=== PATIENT | male | born 1935 | race Caucasian/White ===

== ENCOUNTER 2018-12-29 08:50 | Observation (INO) ==
--- NOTE | 2018-12-29 09:06 | Emergency Department Note ---
Disposition Clinical Impression: Chest pain due to CAD Disposition: Admitted As Inpatient Time of Disposition: 10:16 Chest Pain HPI - General Chief Complaint: ED Chest Pain Stated Complaint: CP Time Seen by Provider: 12/29/18 08:51 Source: patient Mode of arrival: ambulatory Limitations: no limitations Vital Signs Reviewed: Yes Nursing Notes Reviewed: Yes - History of Present Illness HPI Narrative: 83-year-old male with history of congestive heart failure, RVR, atrial fibrillation presents with chest pain. Patient reported shortness of breath with exertion for a week. He started to feel chest pressure and palpitation yesterday. Patient stated it was intermittent. He is not sure how long it last. He started feel chest pain around 4:30 this morning. Patient is taking Lasix 20 mg daily and [place]. Last time it visited Dr. Martin was in August. No history of CT. Pt complaint: chest pain Onset (ago): day(s) (1) Duration: intermittent Severity scale (1-10): 0 - Related Data Home Medications Medication Instructions Recorded Confirmed Apixaban [Eliquis] 5 mg PO BID 11/30/18 12/29/18 Budesonide/Formoterol 160/4.5 2 puff IH BIDR 11/30/18 12/29/18 [Symbicort 160/4.5] Esomeprazole Magnesium [Nexium 20 mg PO DAILY 11/30/18 12/29/18 24Hr] Furosemide [Lasix] 20 mg PO DAILY 11/30/18 12/29/18 Ipratropium/Albuterol Neb [Duoneb] 3 ml IH Q6HR PRN 11/30/18 12/29/18 Meclizine HCl [Verticalm] 25 mg PO BID PRN 11/30/18 12/29/18 Montelukast [Singulair] 10 mg PO HS 11/30/18 12/29/18 Multivit with Iron,Minerals 1 each PO DAILY 11/30/18 12/29/18 [Spectravite Senior] Diltiazem CD (24hr) [Cardizem CD] 120 mg PO DAILY 12/29/18 12/29/18 Ipratropium/Albuterol Sulfate 1 puff IH Q6H PRN 12/29/18 12/29/18 [Combivent Respimat Inhal [place]] Latanoprost [Xalatan] 1 drop BOTH EYES HS 12/29/18 12/29/18 Metoprolol [Lopressor] 50 mg PO BID 12/29/18 12/29/18 Allergies Allergy/AdvReac Type Severity Reaction Status Date / Time codeine Allergy Hallucinati Verified 11/30/18 16:42 ng Constitutional: Denies: fever, chills Eyes: Denies: eye pain ENT ED: Denies: ear pain Cardiovascular: Reports: chest pain Respiratory: Reports: dyspnea. Denies: cough Gastrointestinal: Denies: abdominal pain Genitourinary: Denies: urgency Musculoskeletal: Denies: back pain Integumentary: Denies: rash Neurological: Denies: headache Psychiatric: Denies: anxiety Endocrine: Denies: fatigue Hematological/Lymphatic: Denies: easy bleeding Allergic/Immunologic: Denies: facial swelling Chest Pain PMH - Past Medical History Medical history: Reports: arthritis, COPD, hypertension, RA, other Surgical history: Reports: cataract, orthopedic, other, other Psychiatric history: Reports: no psych history - Social History Smoking Status: Former smoker Alcohol use: Reports: rarely Drug use: Reports: none Physical Exam - General Limitations: no limitations General appearance: alert - Head Head exam: atraumatic - Eye Eye exam: Present: normal appearance - ENT ENT exam: normal exam - Neck Neck exam: Present: normal inspection - Chest Chest inspection: Present: normal inspection - Respiratory Respiratory exam: Present: normal lung sounds bilaterally. Absent: respiratory distress, wheezes - Cardiovascular Cardiovascular exam: Present: regular rate - Abdominal Exam Abdominal exam: Present: soft, Non-Tender - Extremities Exam Extremities exam: Present: normal inspection, full ROM. Absent: tenderness, pedal edema - Back Exam Back exam: Present: normal inspection, full ROM. Absent: tenderness - Neurological Exam Neurological exam: Present: alert, oriented X3 - Psychiatric Psychiatric exam: Present: normal affect - Skin Skin exam: Present: warm, intact Course Vital Signs Temperature 97.6 F 12/29/18 08:57 Pulse Rate 66 12/29/18 08:57 Respiratory Rate 16 12/29/18 08:57 Blood Pressure 152/80 12/29/18 08:57 O2 Sat by Pulse Oximetry 97 12/29/18 08:57 Temperature 97.6 F 12/29/18 08:57 Pulse Rate 63 12/29/18 10:30 Respiratory Rate 16 12/29/18 08:57 Blood Pressure 140/85 12/29/18 10:30 O2 Sat by Pulse Oximetry 97 12/29/18 10:30 Oxygen Delivery Oxygen Delivery Room Air Chest Pain - MDM Narrative Medical decision making narrative: 83-year-old male with a history of actual fibrillation, congestive heart failure, RVR presents with shortness breath and chest pain. Patient reported shortness of breath with extortion a week ago. He started intermittent chest pressure and palpitation last night. The last time chest pain started 4:30 this morning. Physical exam bilateral lungs are clear, no tachycardia, bilateral ankles no swelling. Chest x-ray unremarkable. Troponin negative. BNP 256. EKG no ST elevation. Pt's heart score 4-5. Dr. Castrejon has seen the patient and agrees to admit the patient to hospital for "chest pain rule out CT" . Spoke with Dr. Martin. He will see patient in floor. Dr. Montes De Oca: I reviewed the case and care with the APC and agree with her findings assessment and plan. I did not personally evaluate the patient but did review the case and care with the APC and agree with initial evaluation and admission. - Lab Data Lab results reviewed: Yes I reviewed the patient's lab results. Result diagrams: 12/29/18 09:11 12/29/18 09:11 Lab Results 12/29/18 12/29/18 12/29/18 Range/Units 09:11 09:11 09:11 WBC 6.1 (4.3-11.1) K/mcL RBC 4.22 (4.19-5.50) M/mcL Hgb 13.5 (12.9-16.9) g/dL Hct 40.9 (37.5-50.1) % MCV 96.9 (83.0-100.0) fL MCH 32.0 (28.0-33.3) pg MCHC 33.0 (31.6-35.5) g/dL RDW 13.9 (11.5-14.5) % Plt Count 156 (140-400) K/mcL MPV 11.7 (9.4-12.4) fL Immature Gran % 0.2 (0-4) % Seg Neutrophils % 61.7 % Lymphocytes % 25.8 % Monocytes % 10.7 % Eosinophils % 1.1 % Basophils % 0.5 % Neutrophils # 3.8 (1.6-8.9) K/mcL Lymphocytes # 1.6 (0.6-4.6) K/mcL Monocytes # 0.7 (0.0-1.3) K/mcL Eosinophils # 0.1 (0.0-0.6) K/mcL Basophils # 0.0 (0.0-0.2) K/mcL PT 13.6 H (9.4-12.1) Seconds INR 1.2 Sodium 141 (136-145) mEq/L Potassium 4.2 (3.5-5.1) mEq/L Chloride 107 (98-107) mEq/L Carbon Dioxide 28 (23-29) mEq/L BUN 19 (8-23) mg/dL Creatinine 0.63 L (0.70-1.30) mg/dL Est GFR ( Amer) > 60 (> 60) Est GFR (Non-Af Amer) > 60 (> 60) BUN/Creatinine Ratio 30 H (6-26) Glucose 82 (70-105) mg/dL Calculated Osmolality 293 (280-300) Calcium 9.6 (8.6-10.3) mg/dL Total Bilirubin 0.7 (0.3-1.0) mg/dL AST 17 (13-39) Units/L ALT 14 (7-52) Units/L Alkaline Phosphatase 82 (34-104) Units/L Troponin I < 0.03 (< 0.04) ng/mL B-Natriuretic Peptide (Less than 100) pg/mL Serum Total Protein 6.6 (6.4-8.9) g/dL Albumin 4.3 (3.5-5.7) g/dL Globulin 2.3 L (2.4-3.5) g/dL Albumin/Globulin Ratio 1.9 (1.1-2.2) 12/29/18 Range/Units 09:11 WBC (4.3-11.1) K/mcL RBC (4.19-5.50) M/mcL Hgb (12.9-16.9) g/dL Hct (37.5-50.1) % MCV (83.0-100.0) fL MCH (28.0-33.3) pg MCHC (31.6-35.5) g/dL RDW (11.5-14.5) % Plt Count (140-400) K/mcL MPV (9.4-12.4) fL Immature Gran % (0-4) % Seg Neutrophils % % Lymphocytes % % Monocytes % % Eosinophils % % Basophils % % Neutrophils # (1.6-8.9) K/mcL Lymphocytes # (0.6-4.6) K/mcL Monocytes # (0.0-1.3) K/mcL Eosinophils # (0.0-0.6) K/mcL Basophils # (0.0-0.2) K/mcL PT (9.4-12.1) Seconds INR Sodium (136-145) mEq/L Potassium (3.5-5.1) mEq/L Chloride (98-107) mEq/L Carbon Dioxide (23-29) mEq/L BUN (8-23) mg/dL Creatinine (0.70-1.30) mg/dL Est GFR ( Amer) (> 60) Est GFR (Non-Af Amer) (> 60) BUN/Creatinine Ratio (6-26) Glucose (70-105) mg/dL Calculated Osmolality (280-300) Calcium (8.6-10.3) mg/dL Total Bilirubin (0.3-1.0) mg/dL AST (13-39) Units/L ALT (7-52) Units/L Alkaline Phosphatase (34-104) Units/L Troponin I (< 0.04) ng/mL B-Natriuretic Peptide 256 H (Less than 100) pg/mL Serum Total Protein (6.4-8.9) g/dL Albumin (3.5-5.7) g/dL Globulin (2.4-3.5) g/dL Albumin/Globulin Ratio (1.1-2.2) - Radiology Data Radiology results reviewed: Yes I reviewed the patient's radiology results. COMPARISON: Chest radiograph 05/25/2018, chest CT 08/30/2015 HISTORY: ORDERING SYSTEM PROVIDED HISTORY: chest pain Chest pain since last night, difficulty breathing for 3 weeks. Initial evaluation. FINDINGS: Hyperinflated, clear lungs. No findings of pneumothorax or pleural effusion. Normal mediastinal and cardiac contours. Mildly prominent hilar contours. Atherosclerotic calcification in the aorta. No obvious acute fracture. Included joints maintain anatomic alignment. XR/XR chest 2V IMPRESSION: 1. No acute findings in the chest. 2. Pulmonary hyperinflation, finding that can be seen with emphysema, asthma, or other etiologies. D/ / Jayant Chowdhury MD / Jayant Chowdhury MD Interpreting Provider: Jayant Chowdhury MD
[2018-12-29 09:24] LABS: Basophils % 0.5 %; Eosinophils # 0.1 K/mcL (0.0-0.6); Eosinophils % 1.1 %; Hematocrit 40.9 % (37.5-50.1); Hemoglobin 13.5 g/dL (12.9-16.9); Immature Granulocytes % 0.2 % (0-4); Lymphocytes # 1.6 K/mcL (0.6-4.6); Lymphocytes % 25.8 %; Mean Corpuscular Volume 96.9 fL (83.0-100.0); Mean Platelet Volume 11.7 fL (9.4-12.4); Monocytes # 0.7 K/mcL (0.0-1.3); Monocytes % 10.7 %; Neutrophils # 3.8 K/mcL (1.6-8.9); Platelet Count 156 K/mcL (140-400); Red Blood Count 4.22 M/mcL (4.19-5.50); Red Cell Distribution Width 13.9 % (11.5-14.5); Segmented Neutrophils % 61.7 %
[2018-12-29 09:36] LABS: INR 1.2; Prothrombin Time 13.6 Seconds (9.4-12.1)
[2018-12-29 09:46] LABS: Alanine Aminotransferase 14 Units/L (7-52); Albumin 4.3 g/dL (3.5-5.7); Albumin/Globulin Ratio 1.9 (1.1-2.2); Alkaline Phosphatase 82 Units/L (34-104); Aspartate Amino Transferase 17 Units/L (13-39); BUN/Creatinine Ratio 30 (6-26); Bilirubin,Total 0.7 mg/dL (0.3-1.0); Blood Urea Nitrogen 19 mg/dL (8-23); Calcium 9.6 mg/dL (8.6-10.3); Carbon Dioxide 28 mEq/L (23-29); Chloride 107 mEq/L (98-107); Globulin 2.3 g/dL (2.4-3.5); Glucose 82 mg/dL (70-105); Osmolality,Calculated 293 (280-300); Potassium 4.2 mEq/L (3.5-5.1); Sodium 141 mEq/L (136-145); Total Protein 6.6 g/dL (6.4-8.9); Troponin I < 0.03 ng/mL (< 0.04); eGFR For Non-African Americans > 60 (> 60)
--- NOTE | 2018-12-29 11:25 | Internal Med History&Physical ---
<Sumit Adler - Last Filed: 12/29/18 12:43> Date of Encounter: 12/29/18 Time of Encounter: 11:25 Internal Medicine - H&P: HPI Chief complaint: Dyspnea on exertion Admitted From: Emergency Dept History of present illness: Mr. Doran is a 83 year old male with a past medical history of hypertension, paroxysmal A. fib on Eliquis, diastolic CHF, COPD, rheumatoid arthritis, untreated KATIA, and obesity who presented to the ED complaining of dyspnea on exertion, pedal edema, intermittent chest pressure, and palpitations since yesterday. Chest pain became worse at 4:30 this morning while at rest and associated with diaphoresis and headache. Nothing made chest pain better/ worse and pain did not radiate. Patient is currently chest pain free and reports compliance with all his home meds. In ED, labs revealed BNP 256, negative initial troponin, and EKG showed no signs of ischemia. Cardiology was consulted. Prior CV testing: FAIZA 01/20/2018: LVEF 60%. Normal LV size and function. RV normal in size and function. Severe LA enlargement. Moderate to severely calcified AV. Polimetry 0.9-1.58 cm2. Moderate by Doppler, MG 24 mmHg. Mild AR, MR. Holter monitor 06/2017: Atral flutter, average HR 70 bpm. Frequent PVCs. No supraventricular ectopy. Lexiscan nuclear stress test 04/2015: Negative for ischemia or prior infarct. TTE 07/28/2015: EF 60%. Normal LV size and function. Mildly dilated RV with normal function. Severe left atrial enlargement. Moderate right atrial enlargement. Mild aortic regurgitation and pulmonic regurgitation. No evidence of pulmonary hypertension identified. Mean aortic valve gradient 11 mmHg. Past Med Surg Social Fam HX - Past Medical History Medical history: arthritis, atrial fibrillation, CHF, COPD, hypertension, RA, other Additional medical history: regurtating aorta valve Psychiatric history: no psych history - Past Surgical History Surgical History: cataract, orthopedic, other, other Additional surgical history: abd sx, back sx, neck sx - Social History Smoking Status: Former smoker Smokeless Tobacco Status: No Alcohol use: rarely Drug use: none - Family History Mother Adopted: No Living Status: Hx Family Cardiac Disorders: Yes (chf) Father Living Status: Cause of : CVA Hx Family Cardiac Disorders: Yes (CHF) Hx Family Neurologic Disorders: Yes (CVA) Internal Medicine - H&P: Meds Apixaban [Eliquis] 5 mg PO BID 11/30/18 [History] Budesonide/Formoterol 160/4.5 [Symbicort 160/4.5] 2 puff IH BIDR 11/30/18 [His tory] Esomeprazole Magnesium [Nexium 24Hr] 20 mg PO DAILY 11/30/18 [History] Furosemide [Lasix] 20 mg PO DAILY 11/30/18 [History] Ipratropium/Albuterol Neb [Duoneb] 3 ml IH Q6HR PRN 11/30/18 [History] Meclizine HCl [Verticalm] 25 mg PO BID PRN 11/30/18 [History] Montelukast [Singulair] 10 mg PO HS 11/30/18 [History] Multivit with Iron,Minerals [Spectravite Senior] 1 each PO DAILY 11/30/18 [History] Diltiazem CD (24hr) [Cardizem CD] 120 mg PO DAILY 12/29/18 [History] Ipratropium/Albuterol Sulfate [Combivent Respimat 20-100 Mcg] 1 puff IH Q6H PRN 12/29/18 [History] Latanoprost [Xalatan] 1 drop BOTH EYES HS 12/29/18 [History] Metoprolol [Lopressor] 50 mg PO BID 12/29/18 [History] Allergy/AdvReac Type Severity Reaction Status Date / Time codeine Allergy Hallucinati Verified 11/30/18 16:42 ng All Systems PM: A 10-system review of systems was performed and is negative for pertinent findings except as documented above in the HPI. - Constitutional Constitutional: fatigue, weight gain, no anorexia, no chills, no fever(s), no lethargy, no weakness - EENT Eyes: no blurry vision, no diplopia Nose, mouth and throat: no sinus pain, no sore throat - Cardiovascular Cardiovascular ROS IM: chest pain, diaphoresis, dyspnea on exertion, irregular heart rhythm, orthopnea, palpitations, no syncope - Respiratory Respiratory: dyspnea, dyspnea on exertion, no cough, no chest congestion, no excessive phlegm production - Gastrointestinal Gastrointestinal: no abdominal pain, no diarrhea, no nausea, no vomiting - Genitourinary Genitourinary ROS male: nocturia, urinary frequency, no dysuria, no urinary urgency - Musculoskeletal Musculoskeletal ROS IM: no numbness, no tingling - Integumentary Integumentary IM: no erythema, no skin ulcer - Neurological Neurological ROS: no confusion, no dizziness, no numbness, no tingling - Psychiatric Psychiatric: no anxiety, no depression - Endocrine Endocrine IM: no polydipsia, no polyphagia, no polyuria - Constitutional Vitals: Temp Pulse Resp BP Pulse Ox 97.6 F 63 16 140/85 97 12/29/18 08:57 12/29/18 10:30 12/29/18 08:57 12/29/18 10:30 12/29/18 10:30 General appearance: Present: cooperative, A&O X 3, pleasant, no acute distress, loss of weight, answers questions appropriately Exam: awake - Head Head exam: Present: atraumatic, normocephalic - Eye Eye exam: Present: EOMI, conjuntiva pink, sclera anicteric - ENT ENT exam: Present: mucous membranes dry, normal oropharynx - Neck Neck exam general surgery: Present: supple, trachea midline. Absent: lymphade nopathy - Respiratory Respiratory exam: Present: CTAB. Absent: accessory muscle use, rales, rhonchi, wheezes - Cardiovascular Cardiovascular exam: Present: irregular rhythm, +S1, +S2. Absent: diastolic murmur, gallop, rubs, systolic murmur - GI/Abdominal GI/Abdominal exam: Present: normal bowel sounds, soft, no peritoneal signs. Absent: distended, guarding, tenderness - Extremities Exam Extremities exam: Present: pedal edema, warm, radial pulses palpable and symmetrical. Absent: calf tenderness, cyanotic, normal capillary refill, normal inspection - Back Exam Back exam: Present: normal inspection. Absent: paraspinal tenderness, tenderness - Neurological Exam Neurological exam: Present: alert, CN II-XII intact, oriented X3, no focal deficits. Absent: facial droop, speech deficit - Psychiatric Psychiatric exam: Present: normal affect, normal mood - Skin Skin exam: Present: dry, intact, normal color, warm Internal Med - H&P Results - Labs CBC & Chem 7: 12/29/18 09:11 12/29/18 09:11 Labs: Short CBC 12/29/18 Range/Units 09:11 WBC 6.1 (4.3-11.1) K/mcL Hgb 13.5 (12.9-16.9) g/dL Hct 40.9 (37.5-50.1) % Plt Count 156 (140-400) K/mcL Neutrophils # 3.8 (1.6-8.9) K/mcL BMP 12/29/18 09:11 Sodium 141 Potassium 4.2 Chloride 107 Carbon Dioxide 28 BUN 19 Creatinine 0.63 L Glucose 82 Calcium 9.6 Cardiac Enzymes 12/29/18 Range/Units 09:11 Troponin I < 0.03 (< 0.04) ng/mL Liver Function 12/29/18 Range/Units 09:11 Total Bilirubin 0.7 (0.3-1.0) mg/dL AST 17 (13-39) Units/L ALT 14 (7-52) Units/L Alkaline Phosphatase 82 (34-104) Units/L Albumin 4.3 (3.5-5.7) g/dL - Pulse Oximetry Interpretation Digit-Finger O2 Sat by Pulse Oximetry: 97 (On ambient air) Actions taken: none - EKG Data -: EKG Interpreted by Myself Rate: tachycardia (A fib HR 73, normal axis, RBBB, no ST elevation or depressions) - EKG Data Prior EKG available for review: yes When compared to previous EKG: there are significant changes (NSR) - Impressions ITS Impressions Chest X-Ray 12/29/18 08:53 IMPRESSION: 1. No acute findings in the chest. 2. Pulmonary hyperinflation, finding that can be seen with emphysema, asthma, or other etiologies. D/ / Jayant Chowdhury MD / Jayant Chowdhury MD Interpreting Provider: Jayant Chowdhury MD - Assessment and Plan (1) (HFpEF) heart failure with preserved ejection fraction Status: Acute Assessment and plan: 83 year old male with diastolic CHF presented complaining of dyspnea on exertion, orthopnea, 2+ pedal edema, elevated BNP 256, CXR revealed pulmonary hyperinflation, finding that can be seen with emphysema, asthma, or other etiologies. FAIZA 01/20/2018: LVEF 60%. Normal LV size and function. RV normal in size and f unction. Severe LA enlargement. Moderate to severely calcified AV. Polimetry 0.9-1.58 cm2. Moderate by Doppler, MG 24 mmHg. Mild AR, MR. Continue beta sabra. Hold oral Lasix, continue IV Lasix Cardiology was consulted. Qualifiers: Heart failure chronicity: acute on chronic Qualified Code(s): I50.33 - Acute on chronic diastolic (congestive) heart failure (2) Chest pain Status: Acute Assessment and plan: 83 year old male with intermittent chest pressure and palpitations while at rest with associated diaphoresis. Patient is currently chest pain free. Negative initial troponin, trend serial troponins EKG showed no signs of ischemia. Holter monitor 06/2017: Atral flutter, average HR 70 bpm. Frequent PVCs. No supraventricular ectopy. Lexiscan nuclear stress test 04/2015: Negative for ischemia or prior infarct. Cardiology was consulted. Qualifiers: Chest pain type: other chest pain Qualified Code(s): R07.89 - Other chest pain; R07.8 - Other chest pain (3) Aortic valve stenosis Status: Chronic Assessment and plan: FAIZA 01/20/2018: LVEF 60%. Normal LV size and function. RV normal in size and function. Severe LA enlargement. Moderate to severely calcified AV. Polimetry 0.9-1.58 cm2. Moderate by Doppler, MG 24 mmHg. Mild AR, MR. TTE 07/28/2015: EF 60%. Normal LV size and function. Mildly dilated RV with normal function. Severe left atrial enlargement. Moderate right atrial enlargement. Mild aortic regurgitation and pulmonic regurgitation. No evidence of pulmonary hypertension identified. Mean aortic valve gradient 11 mmHg. Continue beta sabra. Cardiology following Qualifiers: Cardiac valve disease etiology: etiology unspecified Qualified Code(s): I35.0 - Nonrheumatic aortic (valve) stenosis (4) Atrial fibrillation Status: Acute Assessment and plan: Paroxysmal A. fib currently rate controlled on oral Cardizem and metoprolol. [id number] Score 4 Continue Eliquis for anticoagulation Cardiology following. Recommend outpatient sleep study to evaluate for KATIA. Qualifiers: Atrial fibrillation type: paroxysmal Qualified Code(s): I48.0 - Paroxysmal atrial fibrillation (5) Hypertension Status: Acute Assessment and plan: Blood pressure elevated resume oral metoprolol and Cardizem. Qualifiers: Hypertension type: essential hypertension Qualified Code(s): I10 - Essential (primary) hypertension (6) Rheumatoid arthritis Status: Chronic Assessment and plan: Outpatient monitoring. Qualifiers: Rheumatoid arthritis location: hand Rheumatoid factor presence: unspecified presence Laterality: right Qualified Code(s): M06.9 - Rheumatoid arthritis, unspecified (7) KATIA (obstructive sleep apnea) Status: Chronic Assessment and plan: Recommended outpatient sleep study. (8) Obesity (BMI 30-39.9) Status: Chronic Assessment and plan: Lifestyle modification. (9) DVT prophylaxis Status: Acute Assessment and plan: Eliquis - Time Spent With Patient Total time spent is greater than 50% in coordination of care (as documented) at patient's floor/unit and/or counseling patient: <Jackie Hunt Jm - Last Filed: 12/31/18 06:06> Date of Encounter: 12/30/18 Internal Medicine - H&P: HPI History of present illness: Mr. Doran is a 83 year old male All Systems PM: A 10-system review of systems was performed and is negative for pertinent findings except as documented above in the HPI. - Constitutional Vitals: Temp Pulse Resp BP Pulse Ox 98.3 F 89 16 128/71 94 12/29/18 23:01 12/29/18 23:01 12/29/18 23:01 12/29/18 23:01 12/29/18 23:01 Internal Med - H&P Results - Labs CBC & Chem 7: 12/30/18 02:11 12/30/18 02:11 Labs: Short CBC 12/29/18 Range/Units 09:11 WBC 6.1 (4.3-11.1) K/mcL Hgb 13.5 (12.9-16.9) g/dL Hct 40.9 (37.5-50.1) % Plt Count 156 (140-400) K/mcL Neutrophils # 3.8 (1.6-8.9) K/mcL BMP 12/29/18 09:11 Sodium 141 Potassium 4.2 Chloride 107 Carbon Dioxide 28 BUN 19 Creatinine 0.63 L Glucose 82 Calcium 9.6 Cardiac Enzymes 12/29/18 12/29/18 12/29/18 Range/Units 09:11 15:40 21:20 Troponin I < 0.03 < 0.03 < 0.03 (< 0.04) ng/mL Liver Function 12/29/18 Range/Units 09:11 Total Bilirubin 0.7 (0.3-1.0) mg/dL AST 17 (13-39) Units/L ALT 14 (7-52) Units/L Alkaline Phosphatase 82 (34-104) Units/L Albumin 4.3 (3.5-5.7) g/dL - Impressions ITS Impressions Chest X-Ray 12/29/18 08:53 IMPRESSION: 1. No acute findings in the chest. 2. Pulmonary hyperinflation, finding that can be seen with emphysema, asthma, or other etiologies. D/ / Jayant Chowdhruy MD / Jayant Chowdhury MD Interpreting Provider: Jayant Chowdhury MD - Assessment and Plan (1) Aortic valve stenosis Status: Chronic Qualifiers: Cardiac valve disease etiology: etiology unspecified Qualified Code(s): I35.0 - Nonrheumatic aortic (valve) stenosis (2) Chest pain Status: Acute Qualifiers: Chest pain type: other chest pain Qualified Code(s): R07.89 - Other chest pain; R07.8 - Other chest pain (3) Atrial fibrillation Status: Acute Qualifiers: Atrial fibrillation type: paroxysmal Qualified Code(s): I48.0 - Paroxysmal atrial fibrillation (4) Hypertension Status: Acute Qualifiers: Hypertension type: essential hypertension Qualified Code(s): I10 - Essential (primary) hypertension (5) DVT prophylaxis Status: Acute (6) (HFpEF) heart failure with preserved ejection fraction Status: Acute Qualifiers: Heart failure chronicity: acute on chronic Qualified Code(s): I50.33 - Acute on chronic diastolic (congestive) heart failure (7) Rheumatoid arthritis Status: Chronic Qualifiers: Rheumatoid arthritis location: hand Rheumatoid factor presence: unspecified presence Laterality: right Qualified Code(s): M06.9 - Rheumatoid arthritis, unspecified (8) KATIA (obstructive sleep apnea) Status: Chronic (9) Obesity (BMI 30-39.9) Status: Chronic - Time Spent With Patient Total time spent is greater than 50% in coordination of care (as documented) at patient's floor/unit and/or counseling patient: - Attending Attestation I personally and independently interviewed and examined the patient, and I reviewed the patient's medical records. I am in agreement with the assessment and proposed treatment plan. I discussed my findings and recommendation with the patient and answer his questions. The patient's medical records were edited to accurately reflect this encounter.
--- NOTE | 2018-12-29 11:41 | Electrocardiograph Report ---
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
[2018-12-29] MEDS ORDERED: Ondansetron 4 MG/2 ML VIAL IVP PRN (11:46)
[2018-12-29] MEDS ORDERED: Naloxone 0.4 MG/ML INJ IVP PRN (11:46)
[2018-12-29 12:21] LABS: Magnesium 2.1 mg/dL (1.6-2.6)
[2018-12-29] MEDS ORDERED: Ipratropium/Albuterol Neb 3 ML IH PRN (12:56)
[2018-12-29] MEDS: Furosemide 40 MG/4 ML VIAL IVP SCH ×2 (13:58→22:04)
[2018-12-29] MEDS: Aspirin Enteric Coated 81 MG Tablet PO SCH (13:58)
--- NOTE | 2018-12-29 14:01 | Cardiology Consult Note ---
Date of Encounter: 12/29/18 Time of Encounter: 13:57 Assessment and Plan (1) Chest pain Current Visit: No Status: Acute Intermittent chest pain over recent weeks. Chest pain became worse at 4:30 this morning while at rest and associated with diaphoresis and headache. No alleviating or exacerbating factors. Patient is currently chest pain free. Initial troponin negative. Trend for total of 3. Also with worsening dyspnea x 3 weeks. FAIZA 01/20/2018: LVEF 60%. Normal LV size and function. RV normal in size and function. Severe LA enlargement. Moderate to severely calcified AV. Polimetry 0.9-1.58 cm2. Moderate by Doppler, MG 24 mmHg. Mild AR, MR. Lexiscan nuclear stress test 04/2015: Negative for ischemia or prior infarct. Will order echo to re-evaluate severity. Pending troponin trend and TTE results, will then determine type of ischemic eval. NPO after midnight. Qualifiers: Chest pain type: other chest pain Qualified Code(s): R07.89 - Other chest pain; R07.8 - Other chest pain (2) Aortic valve stenosis Current Visit: No Status: Chronic FAIZA 01/20/2018: Moderate to severely calcified AV. Polimetry 0.9-1.58 cm2. Moderate by Doppler, MG 24 mmHg. Now with progressive dyspnea and chest pain. Concern for worsening . TTE to re-evaluate AV. Qualifiers: Cardiac valve disease etiology: etiology unspecified Qualified Code(s): I35.0 - Nonrheumatic aortic (valve) stenosis (3) Atrial fibrillation Current Visit: Yes Status: Acute Known A-Fib. Holter 10/2018 A-Fib throughout, AVG HR 73. Continue BB and CCB. Anticoagulated on Eliquis 5mg BID. Qualifiers: Atrial fibrillation type: paroxysmal Qualified Code(s): I48.0 - Paroxysmal atrial fibrillation Discussion w patient/family: The assessment and plan as outlined above was discussed with the patient and/or family members who expressed understanding and agreement. All questions were answered. Thank you for involving us in the care of your patient. Please call with any questions. I will discuss all the above with Dr. Martin and make changes as necessary. History of Present Illness Consult date: 12/29/18 Requesting physician: Sumit Adler Consult reason: chest pain, dyspnea Chief complaint: chest pain, dyspnea, BLE edema History of present illness: Mr. Doran is a 83 year old male with PMH of hypertension, A. fib on Eliquis, diastolic CHF, COPD, rheumatoid arthritis, untreated KATIA, and obesity who presented to the ED complaining of dyspnea on exertion, pedal edema, intermittent chest pressure, and palpitations. Shortness of breath has been worsening over the past 3 weeks. Chest pain became worse at 4:30 this morning while at rest and associated with diaphoresis and headache. No alleviating or exacerbating factors, did not radiate. Patient is currently chest pain free and reports compliance with all his home meds. Per , pt has complained of intermittent chest pain over recent weeks. Initial troponin negative. In ED, labs revealed BNP 256, and EKG no acute ischemia. Cardiology consulted for further recs. Prior CV testing: FAIZA 01/20/2018: LVEF 60%. Normal LV size and function. RV normal in size and function. Severe LA enlargement. Moderate to severely calcified AV. Polimetry 0.9-1.58 cm2. Moderate by Doppler, MG 24 mmHg. Mild AR, MR. Holter monitor 10/2018: A-Fib throughout, AVG HR 73. Lexiscan nuclear stress test 04/2015: Negative for ischemia or prior infarct. TTE 07/09/17: LVEF 60-65%. Normal LV chamber size and function. Asymmetric hypertrophy of the basal septum. Indeterminate diastolic function. Normal right ventricular structure and function. Moderately calcified aortic valve leaflets. Mild aortic stenosis. Mean gradient 14 mmHg. Peak veloicty 2.47 m/s. No evidence of pulmonary hypertension. Past Med Surg Social Fam HX - Past Medical History Medical history: arthritis, atrial fibrillation, CHF, COPD, hypertension, RA, other Additional medical history: regurtating aorta valve Psychiatric history: no psych history - Past Surgical History Surgical History: cataract, orthopedic, other, other Additional surgical history: large intestine sx, back sx, neck sx - Social History Smoking Status: Former smoker Smokeless Tobacco Status: No Alcohol use: rarely Drug use: none - Family History Mother Adopted: No Living Status: Hx Family Cardiac Disorders: Yes (chf) Father Living Status: Cause of : CVA Hx Family Cardiac Disorders: Yes (CHF) Hx Family Neurologic Disorders: Yes (CVA) Medications and Allergies Apixaban [Eliquis] 5 mg PO BID 11/30/18 [History] Budesonide/Formoterol 160/4.5 [Symbicort 160/4.5] 2 puff IH BIDR 11/30/18 [History] Diltiazem HCl [Diltiazem 12Hr ER] 120 mg PO DAILY 11/30/18 [History] Esomeprazole Magnesium [Nexium 24Hr] 20 mg PO DAILY 11/30/18 [History] Furosemide [Lasix] 20 mg PO DAILY 11/30/18 [History] Ipratropium/Albuterol Neb [Duoneb] 3 ml IH Q6HR PRN 11/30/18 [History] Meclizine HCl [Verticalm] 25 mg PO BID PRN 11/30/18 [History] Montelukast [Singulair] 10 mg PO HS 11/30/18 [History] Multivit with Iron,Minerals [Spectravite Senior] 1 each PO DAILY 11/30/18 [History] Ipratropium/Albuterol Sulfate [Combivent Respimat Inhal Thiells] 1 puff IH Q6H PRN 12/29/18 [History] Latanoprost [Xalatan] 1 drop BOTH EYES HS 12/29/18 [History] Metoprolol [Lopressor] 50 mg PO BID 12/29/18 [History] Allergy/AdvReac Type Severity Reaction Status Date / Time codeine Allergy Hallucinati Verified 11/30/18 16:42 ng All Systems Review: The remainder of the systems were reviewed and are negative - Cardiovascular Cardiovascular: as per HPI, chest pain at rest, chest pain with exertion, dyspnea at rest, dyspnea on exertion, leg edema - Respiratory Respiratory: dyspnea Physical Examination Vital Signs, Last 4 Hours Temp Pulse Resp BP Pulse Ox 12/29/18 13:53 97.8 F 80 18 142/78 96 12/29/18 10:30 63 140/85 97 Vital Signs Temp Pulse Resp BP Pulse Ox 12/29/18 13:53 97.8 F 80 18 142/78 96 12/29/18 10:30 63 140/85 97 12/29/18 08:57 97.6 F 66 16 152/80 97 Intake and Output 12/28/18 12/29/18 12/29/18 23:59 07:59 15:59 Other: Weight 105.415 kg Patient Weight 12/29/18 23:59 Weight 105.415 kg General: Conversant, No Apparent Distress HEENT: Atraumatic, Normocephaly, Mucus Membranes Moist Neck: Normal carotid pulses Cardiac: Other (3/6 BLANCHE) Lungs: Normal Breath Sounds, No Wheeze, Rales, Rhonchi Neuro: Alert and responsive, No focal deficits noted Abdomen: Soft, Non-Tender Skin: No rashes noted on visualized skin Musculoskeletal: No Chest Wall Tenderness Extremities: No Clubbing, No Cyanosis, No Edema, Normal Pulses Results 12/29/18 09:11 12/29/18 09:11 Lab Results 12/29/18 12/29/18 12/29/18 09:11 09:11 09:11 WBC 6.1 Hgb 13.5 Hct 40.9 Plt Count 156 INR 1.2 Sodium 141 Potassium 4.2 Chloride 107 Carbon Dioxide 28 BUN 19 Creatinine 0.63 L Glucose 82 Calcium 9.6 Magnesium 2.1 Total Bilirubin 0.7 AST 17 ALT 14 Alkaline Phosphatase 82 Troponin I < 0.03 B-Natriuretic Peptide 12/29/18 09:11 WBC Hgb Hct Plt Count INR Sodium Potassium Chloride Carbon Dioxide BUN Creatinine Glucose Calcium Magnesium Total Bilirubin AST ALT Alkaline Phosphatase Troponin I B-Natriuretic Peptide 256 H Short CBC 12/29/18 Range/Units 09:11 WBC 6.1 (4.3-11.1) K/mcL Hgb 13.5 (12.9-16.9) g/dL Hct 40.9 (37.5-50.1) % Plt Count 156 (140-400) K/mcL Neutrophils # 3.8 (1.6-8.9) K/mcL BMP 12/29/18 Range/Units 09:11 Sodium 141 (136-145) mEq/L Potassium 4.2 (3.5-5.1) mEq/L Chloride 107 (98-107) mEq/L Carbon Dioxide 28 (23-29) mEq/L BUN 19 (8-23) mg/dL Creatinine 0.63 L (0.70-1.30) mg/dL Glucose 82 (70-105) mg/dL Calcium 9.6 (8.6-10.3) mg/dL Cardiac Enzymes 12/29/18 Range/Units 09:11 Troponin I < 0.03 (< 0.04) ng/mL Liver Function 12/29/18 Range/Units 09:11 Total Bilirubin 0.7 (0.3-1.0) mg/dL AST 17 (13-39) Units/L ALT 14 (7-52) Units/L Alkaline Phosphatase 82 (34-104) Units/L Albumin 4.3 (3.5-5.7) g/dL Impressions Chest X-Ray 12/29/18 08:53 IMPRESSION: 1. No acute findings in the chest. 2. Pulmonary hyperinflation, finding that can be seen with emphysema, asthma, or other etiologies. D/ / Jayant Chowdhury MD / Jayant Chowdhury MD Interpreting Provider: Jayant Chowdhury MD Active Medications Albuterol/Ipratropium (Duoneb) 3 ml IH Q6HR PRN PRN Reason: Shortness Of Breath Stop: 06/30/19 12:57 Aspirin (Aspirin Ec) 81 mg PO DAILY [facility] Stop: 06/30/19 12:01 Last Admin: 12/29/18 13:58 Dose: 81 mg Documented by: Budesonide/Formoterol Fumarate (Symbicort) 2 puff IH BIDR [facility]; Protocol Stop: 06/30/19 22:01 Docusate Sodium (Colace) 100 mg PO BID PRN PRN Reason: Constipation Stop: 06/30/19 21:01 Furosemide (Lasix) 40 mg IVP BIDDIURETIC [facility] Stop: 06/30/19 12:01 Last Admin: 12/29/18 13:58 Dose: 40 mg Documented by: Metoprolol Tartrate (Lopressor) 50 mg PO BID [facility] Stop: 06/30/19 21:01 Montelukast Sodium (Singulair) 10 mg PO DAILY [facility] Stop: 07/01/19 09:01 Naloxone HCl (Narcan) 0.4 mg IVP Q2MPRN PRN PRN Reason: SEE COMMENTS Stop: 06/30/19 11:47 Non-Formulary Medication (Apixaban [Eliquis]) 5 mg PO BID [facility] Stop: 06/30/19 21:01 Non-Formulary Medication (Diltiazem Hcl [Diltiazem 12hr Er]) 120 mg PO DAILY [facility] Stop: 07/01/19 09:01 Non-Formulary Medication (Esomeprazole Magnesium [Nexium 24hr]) 20 mg PO DAILY [facility] Stop: 07/01/19 09:01 Ondansetron HCl (Zofran) 4 mg IVP Q6HR PRN PRN Reason: Nausea And Vomiting Stop: 06/30/19 11:47 - Imaging and Cardiology Stress Test: report reviewed Echo: report reviewed - EKG Interpretation EKG results cardiology: personally reviewed (A-Fib rate 73) Consult Discharge Plan - Plan Referrals: Bj Ahuja MD [Primary Care Provider] -
[2018-12-29] MEDS ORDERED: Perflutren Lipid Microsphere 1.3 ML in 0.9 % Sodium Chloride 8.7 ML IVP ONE (19:59)
[2018-12-29] MEDS: Budesonide/Formoterol 160/4.5 1 PUFF INH IH SCH (20:11)
[2018-12-29] MEDS: Apixaban 5 MG TABLET PO SCH (22:05)
[2018-12-30 03:00] LABS: Hematocrit 41.8 % (37.5-50.1); Hemoglobin 14.1 g/dL (12.9-16.9); Mean Corpuscular HGB Conc 33.7 g/dL (31.6-35.5); Mean Corpuscular Hemoglobin 32.2 pg (28.0-33.3); Mean Corpuscular Volume 95.4 fL (83.0-100.0); Mean Platelet Volume 11.6 fL (9.4-12.4); Platelet Count 155 K/mcL (140-400); Red Blood Count 4.38 M/mcL (4.19-5.50); Red Cell Distribution Width 13.7 % (11.5-14.5)
[2018-12-30 03:16] LABS: BUN/Creatinine Ratio 26 (6-26); Blood Urea Nitrogen 18 mg/dL (8-23); Calcium 9.6 mg/dL (8.6-10.3); Carbon Dioxide 26 mEq/L (23-29); Chloride 103 mEq/L (98-107); Glucose 99 mg/dL (70-105); Osmolality,Calculated 294 (280-300); Potassium 3.8 mEq/L (3.5-5.1); Sodium 141 mEq/L (136-145); eGFR For Non-African Americans > 60 (> 60)
[2018-12-30] MEDS: Budesonide/Formoterol 160/4.5 1 PUFF INH IH SCH (07:24)
[2018-12-30] MEDS ORDERED: Diltiazem CD (24hr) 120 MG CAPSULE PO SCH (09:00)
[2018-12-30] MEDS ORDERED: Regadenoson 0.4 MG/5 ML SYRINGE IVP ONE (09:29)
--- NOTE | 2018-12-30 12:11 | Cardiology Progress Note ---
Date of Encounter: 12/30/18 Time of Encounter: 12:08 Assessment and Plan (1) Chest pain Current Visit: No Status: Acute Intermittent chest pain over recent weeks associated with diaphoresis, dyspnea and headache. No alleviating or exacerbating factors. Troponin negative x 3. No ischemic ECG changes. TTE LVEF 60%. Mild concentric and moderate basal LVH. Normal RV structure and function. Bi-atrial enlargement. Mild MR. Mild-moderate AR. Aortic valve leaflet morphology and excursion are not well visualized. Moderate by Doppler. Grossly, leaflet excursion appears severely reduced. Mild CT. No phtn. There is a trivial pericardial effusion present. There is no echocardiographic evidence of tamponade. Will proceed with nuclear stress test today. Qualifiers: Chest pain type: other chest pain Qualified Code(s): R07.89 - Other chest pain; R07.8 - Other chest pain (2) Aortic valve stenosis Current Visit: No Status: Chronic FAIZA 01/20/2018: Moderate to severely calcified AV. Polimetry 0.9-1.58 cm2. Moderate by Doppler, MG 24 mmHg. Now with progressive dyspnea and chest pain. TTE Mild-moderate aortic regurgitation. Aortic valve leaflet morphology and excursion are not well visualized. Moderate aortic stenosis by Doppler. Grossly, leaflet excursion appears severely reduced. Continue to monitor. Qualifiers: Cardiac valve disease etiology: etiology unspecified Qualified Code(s): I35.0 - Nonrheumatic aortic (valve) stenosis (3) Atrial fibrillation Current Visit: Yes Status: Acute Known A-Fib. Holter 10/2018 A-Fib throughout, AVG HR 73. Continue BB and CCB. Anticoagulated on Eliquis 5mg BID. Qualifiers: Atrial fibrillation type: paroxysmal Qualified Code(s): I48.0 - Paroxysmal atrial fibrillation Discussion w patient/family: The assessment and plan as outlined above was discussed with the patient and/or family members who expressed understanding and agreement. All questions were answered. Thank you for involving us in the care of your patient. Please call with any questions. I will discuss all the above with Dr. Martin and make changes as necessary. Subjective Principal diagnosis: Chest pain Interval history: Reports episode of chest pain this AM. Chest pain free currently. Objective Vital Signs, Last 4 Hours Temp Pulse Resp BP Pulse Ox 12/30/18 10:59 98.4 F 79 16 133/85 96 Vital Signs Temp Pulse Resp BP Pulse Ox 12/30/18 10:59 98.4 F 79 16 133/85 96 12/30/18 07:58 92 12/30/18 07:28 98.7 F 81 16 137/82 92 12/30/18 07:25 18 94 12/30/18 04:02 98.1 F 81 16 112/69 93 12/29/18 23:01 98.3 F 89 16 128/71 94 12/29/18 20:11 17 96 12/29/18 19:08 98.1 F 63 16 110/63 94 12/29/18 15:19 98.4 F 61 18 102/59 96 12/29/18 13:53 97.8 F 80 18 142/78 96 Intake and Output 12/29/18 12/30/18 12/30/18 23:59 07:59 15:59 Other: Weight 104.4 kg Patient Weight 12/30/18 23:59 Weight 104.4 kg General: Conversant, No Apparent Distress HEENT: Atraumatic, Normocephaly, Mucus Membranes Moist Neck: No JVD, Normal carotid pulses Cardiac: Other (irregularly irregular, BLANCHE ) Lungs: Normal Breath Sounds, No Wheeze, Rales, Rhonchi Neuro: Alert and responsive, No focal deficits noted Abdomen: Soft, Non-Tender Skin: No rashes noted on visualized skin Musculoskeletal: No Chest Wall Tenderness Extremities: No Clubbing, No Cyanosis, No Edema, Normal Pulses Results 12/30/18 02:11 12/30/18 02:11 Lab Results 12/29/18 12/29/18 12/29/18 09:11 15:40 21:20 WBC Hgb Hct Plt Count Sodium Potassium Chloride Carbon Dioxide BUN Creatinine Glucose Calcium Magnesium 2.1 Troponin I < 0.03 < 0.03 TSH 12/30/18 12/30/18 12/30/18 02:11 02:11 11:19 WBC 7.2 Hgb 14.1 Hct 41.8 Plt Count 155 Sodium 141 Potassium 3.8 Chloride 103 Carbon Dioxide 26 BUN 18 Creatinine 0.69 L Glucose 99 Calcium 9.6 Magnesium Troponin I TSH 1.876 Short CBC 12/30/18 Range/Units 02:11 WBC 7.2 (4.3-11.1) K/mcL Hgb 14.1 (12.9-16.9) g/dL Hct 41.8 (37.5-50.1) % Plt Count 155 (140-400) K/mcL BMP 12/30/18 Range/Units 02:11 Sodium 141 (136-145) mEq/L Potassium 3.8 (3.5-5.1) mEq/L Chloride 103 (98-107) mEq/L Carbon Dioxide 26 (23-29) mEq/L BUN 18 (8-23) mg/dL Creatinine 0.69 L (0.70-1.30) mg/dL Glucose 99 (70-105) mg/dL Calcium 9.6 (8.6-10.3) mg/dL Cardiac Enzymes 12/29/18 12/29/18 Range/Units 21:20 15:40 Troponin I < 0.03 < 0.03 (< 0.04) ng/mL Impressions Echocardiogram 12/29/18 14:24 Impressions: LVEF 60%. Mild concentric and moderate basal left ventricular hypertrophy. Indeterminate diastolic function. Normal right ventricular structure and function. Bi-atrial enlargement. Mild mitral regurgitation. Mild-moderate aortic regurgitation. Aortic valve leaflet morphology and excursion are not well visualized. Moderate aortic stenosis by Doppler. Grossly, leaflet excursion appears severely reduced. Mild pulmonic regurgitation. No pulmonary hypertension. There is a trivial pericardial effusion present. There is no echocardiographic evidence of tamponade. Left Ventricular Wall Motion: Rest Echo Findings All wall segments showed normal motion. Findings: Study Quality * Technically challenging due to clinical status. ECG Findings * Atrial fibrillation. Left Ventricle * LVEF 60%. * Mild concentric and moderate basal left ventricular hypertrophy. * Indeterminate diastolic function. * No LVOT obstruction. Right Ventricle * Normal right ventricular structure and function. Left Atrium * Severely dilated left atrium. Right Atrium * Moderately dilated right atrium. Mitral Valve * Mitral valve not well visualized. * Mild mitral annular calcification * Mild mitral regurgitation. * No mitral stenosis. Aortic Valve * Mild-moderate aortic regurgitation. * Aortic valve leaflet morphology and excursion not well visualized. * Moderately calcified aortic valve leaflets. * Moderate aortic stenosis by Doppler. PV 2.6m/s, MG 21 mmHg, DI 0.32, SAMIRA 1.0cm2 Tricuspid Valve * Tricuspid valve not well visualized. * Trace tricuspid regurgitation. Pulmonic Valve * Pulmonic valve is not well visualized. * No pulmonic stenosis. * Mild pulmonic regurgitation. Pulmonary Artery * Normal visualized portions of the main pulmonary artery. Aorta * Normally sized aortic root. Pericardium * There is a trivial pericardial effusion present. * There is no echocardiographic evidence of tamponade. Interatrial Septum * Interatrial septum not well evaluated. IVC * The IVC is not well evaluated. Active Medications Albuterol/Ipratropium (Duoneb) 3 ml IH [id number] PRN PRN Reason: Shortness Of Breath Stop: 06/30/19 12:57 Apixaban (Eliquis) 5 mg PO BID [facility] Stop: 06/30/19 21:01 Last Admin: 12/29/18 22:05 Dose: 5 mg Documented by: Aspirin (Aspirin Ec) 81 mg PO DAILY [facility] Stop: 06/30/19 12:01 Last Admin: 12/29/18 13:58 Dose: 81 mg Documented by: Budesonide/Formoterol Fumarate (Symbicort) 2 puff IH BIDR [facility]; Protocol Stop: 06/30/19 22:01 Last Admin: 12/30/18 07:24 Dose: 2 puff Documented by: Diltiazem HCl (Cardizem Cd) 120 mg PO DAILY [facility] Stop: 07/01/19 09:01 Docusate Sodium (Colace) 100 mg PO BID PRN PRN Reason: Constipation Stop: 06/30/19 21:01 Furosemide (Lasix) 40 mg IVP BIDDIURETIC [facility] Stop: 06/30/19 12:01 Last Admin: 12/29/18 22:04 Dose: Not Given Documented by: Metoprolol Tartrate (Lopressor) 50 mg PO BID [facility] Stop: 06/30/19 21:01 Last Admin: 12/29/18 22:05 Dose: 50 mg Documented by: Montelukast Sodium (Singulair) 10 mg PO DAILY [facility] Stop: 07/01/19 09:01 Naloxone HCl (Narcan) 0.4 mg IVP Q2MPRN PRN PRN Reason: SEE COMMENTS Stop: 06/30/19 11:47 Omeprazole (Prilosec) 20 mg PO DAILY [facility] Stop: 07/01/19 09:01 Ondansetron HCl (Zofran) 4 mg IVP Q6HR PRN PRN Reason: Nausea And Vomiting Stop: 06/30/19 11:47 - Imaging and Cardiology Echo: report reviewed Consult Discharge Plan - Plan Referrals: Bj Ahuja MD [Primary Care Provider] - (Appointment has been reuqested.)
[2018-12-30] MEDS: Apixaban 5 MG TABLET PO SCH (12:57)
[2018-12-30] MEDS: Aspirin Enteric Coated 81 MG Tablet PO SCH (12:57)
[2018-12-30] MEDS: Furosemide 40 MG/4 ML VIAL IVP SCH (12:57)
--- NOTE | 2018-12-30 13:38 | Event Note ---
Date of Encounter: 12/30/18 Time of Encounter: 13:37 - Cardiology Event Note Nuclear stress test perfusion imaging negative for ischemia. Final report pending. Cardiology signing off. Reconsult PRN. Will coordinate outpt follow-up in 3-4 weeks.
[2018-12-30 15:10] VITALS: BP 122/71
--- NOTE | 2018-12-30 15:14 | Discharge Summary ---
Orders not resulted at time of discharge: Pending orders 12/30/18 09:08 NM melina perf SPECT multi [NM] Routine Date of Encounter: 12/30/18 Time of Encounter: 15:12 - Discharge Diagnosis (1) Aortic valve stenosis Priority: Secondary Status: Chronic Qualifiers: Cardiac valve disease etiology: etiology unspecified Qualified Code(s): I35.0 - Nonrheumatic aortic (valve) stenosis (2) Chest pain Priority: Primary Status: Acute Qualifiers: Chest pain type: other chest pain Qualified Code(s): R07.89 - Other chest pain; R07.8 - Other chest pain (3) Atrial fibrillation Priority: Secondary Status: Acute Qualifiers: Atrial fibrillation type: paroxysmal Qualified Code(s): I48.0 - Paroxysmal atrial fibrillation (4) Hypertension Priority: Secondary Status: Acute Qualifiers: Hypertension type: essential hypertension Qualified Code(s): I10 - Essential (primary) hypertension (5) (HFpEF) heart failure with preserved ejection fraction Priority: Secondary Status: Acute Qualifiers: Heart failure chronicity: acute on chronic Qualified Code(s): I50.33 - Acute on chronic diastolic (congestive) heart failure (6) Rheumatoid arthritis Priority: Secondary Status: Chronic Qualifiers: Rheumatoid arthritis location: hand Rheumatoid factor presence: unspecified presence Laterality: right Qualified Code(s): M06.9 - Rheumatoid arthritis, unspecified (7) KATIA (obstructive sleep apnea) Priority: Secondary Status: Chronic (8) Obesity (BMI 30-39.9) Priority: Secondary Status: Chronic Hospital course: Mr. Doran is a 83 year old male with history of hypertension and A. fib on [facility] was diastolic heart failure COPD rheumatoid arthritis untreated KATIA obesity presented to [facility] ED with complaints of dyspnea on exertion pedal edema and intermittent chest pressure or palpitations. Shortness of breath has been worsening for the past 3 weeks. He presented with chest pain with associated symptoms diaphoresis and headache no alleviating or exacerbating factors. Patient was evaluated by cardiology who recommended TTE to evaluate LV function, with no significant changes EF of 60% recommend stress test he underwent a cardiac stress test was negative for any ischemia or infarct. Cardiology recommending follow-up as outpatient. Patient was given IV Lasix overnight denies any shortness of breath or chest pain no lower extremity swelling noted. Patient will follow-up with primary care provider as well as cardiology as outpatient. Patient verbalized understanding and he is ready for discharge. - Time Spent with Patient Total time spent providing and/or coordinating discharge services: - Discharge Medications Prescriptions: Continued Latanoprost [Xalatan] 1 drop BOTH EYES HS Metoprolol [Lopressor] 50 mg PO BID Ipratropium/Albuterol Sulfate [Combivent Respimat 20-100 Mcg] 1 puff IH Q6H PRN PRN Reason: Shortness Of Breath Diltiazem CD (24hr) [Cardizem CD] 120 mg PO DAILY Ipratropium/Albuterol Neb [Duoneb] 3 ml IH Q6HR PRN PRN Reason: Shortness Of Breath Furosemide [Lasix] 20 mg PO DAILY Esomeprazole Magnesium [Nexium 24Hr] 20 mg PO DAILY Apixaban [Eliquis] 5 mg PO BID Meclizine HCl [Verticalm] 25 mg PO BID PRN PRN Reason: Vertigo Multivit with Iron,Minerals [Spectravite Senior] 1 each PO DAILY Budesonide/Formoterol 160/4.5 [Symbicort 160/4.5] 2 puff IH BIDR Montelukast [Singulair] 10 mg PO HS Home Medications: Apixaban [Eliquis] 5 mg PO BID 11/30/18 [History] Budesonide/Formoterol 160/4.5 [Symbicort 160/4.5] 2 puff IH BIDR 11/30/18 [History] Esomeprazole Magnesium [Nexium 24Hr] 20 mg PO DAILY 11/30/18 [History] Furosemide [Lasix] 20 mg PO DAILY 11/30/18 [History] Ipratropium/Albuterol Neb [Duoneb] 3 ml IH Q6HR PRN 11/30/18 [History] Meclizine HCl [Verticalm] 25 mg PO BID PRN 11/30/18 [History] Montelukast [Singulair] 10 mg PO HS 11/30/18 [History] Multivit with Iron,Minerals [Spectravite Senior] 1 each PO DAILY 11/30/18 [History] Diltiazem CD (24hr) [Cardizem CD] 120 mg PO DAILY 12/29/18 [History] Ipratropium/Albuterol Sulfate [Combivent Respimat 20-100 Mcg] 1 puff IH Q6H PRN 12/29/18 [History] Latanoprost [Xalatan] 1 drop BOTH EYES HS 12/29/18 [History] Metoprolol [Lopressor] 50 mg PO BID 12/29/18 [History] Allergies/Adverse Reactions: Allergy/AdvReac Type Severity Reaction Status Date / Time codeine Allergy Hallucinati Verified 11/30/18 16:42 ng Date of admission: 12/29/18 10:56 Primary care physician: Bj Ahuja MD Consults: 12/29/18 10:14 Consult to Cardiology [CONS] Stat Comment: Consulting Provider: Cardiology Flor Reason for Consult: chest pain, shortness of breath Call Completed: No 12/29/18 11:46 Consult to Cardiac Rehabilitation-Phase1 [CONS] Routine Comment: Reason for Consult: heart failure Call Completed: Yes Consult to Nurse Navigator [CONS] Routine Comment: CHF Discharging clinician: Marisela Bundy Anticipated date of discharge: 12/30/18 - Constitutional Vitals: Temp Pulse Resp BP Pulse Ox 97.8 F 86 16 122/71 94 12/30/18 15:08 12/30/18 15:08 12/30/18 15:08 12/30/18 15:08 12/30/18 15:08 General appearance: Present: cooperative, A&O X 3, pleasant, no acute distress, loss of weight, answers questions appropriately Exam: Skin: Free of rash and discoloration. Eyes: Sclera is white. There is no discharge from eyes. ENMT: Oral/pharyngeal mucosa is normal in appearance. There is no discharge from nose or ears. Respiratory: Normal breath sounds with no crackles and wheezes bilaterally. CV: Heart is regular with no gallop systolic murmur GI: Abdomen is flat and soft with no palpable mass or visceromegaly. : There is no tenderness in patient's flanks bilaterally. Neuro exam: He has good strength in upper and lower extremities. He has normal eye movements. Psychiatric: He has normal affect. His thought process is appropriate to the situation. - Patient Status Disposition: Home, Self-Care Condition: Good Functional capacity at discharge: independent ambulation Overall status at discharge: patient is back to baseline - Discharge Instructions Instructions: Chest Pain (DC) Follow Up With: Bj Ahuja MD [Primary Care Provider] - (Appointment has been reuqested.) Evon Harvey, FISHER SCALLOP [Advanced Practice Nurse] - (cardio will call pt with apt date and time ) - Diet and Activity Activity: increase activity as tolerated Diet: advance to your usual diet
== END 2018-12-30 15:36 | disposition home or self-care (01) ==
LOC: EMEROOARM 08:50 → 3BNU 08:50
PROVIDERS: ADMIT Internal Medicine Nephrology; ATTEND Internal Medicine Nephrology

== ENCOUNTER 2019-01-08 19:50 | Observation (INO) ==
[2019-01-08] MEDS ORDERED: Aspirin 81 MG TAB.CHEW PO ONE (19:58)
[2019-01-08 20:17] LABS: Basophils % 0.4 %; Eosinophils # 0.1 K/mcL (0.0-0.6); Eosinophils % 1.2 %; Hematocrit 43.2 % (37.5-50.1); Hemoglobin 14.2 g/dL (12.9-16.9); Immature Granulocytes % 0.3 % (0-4); Lymphocytes # 1.7 K/mcL (0.6-4.6); Lymphocytes % 24.3 %; Mean Corpuscular HGB Conc 32.9 g/dL (31.6-35.5); Mean Corpuscular Hemoglobin 32.1 pg (28.0-33.3); Mean Corpuscular Volume 97.5 fL (83.0-100.0); Mean Platelet Volume 11.1 fL (9.4-12.4); Monocytes # 0.8 K/mcL (0.0-1.3); Monocytes % 11.2 %; Neutrophils # 4.3 K/mcL (1.6-8.9); Platelet Count 181 K/mcL (140-400); Red Blood Count 4.43 M/mcL (4.19-5.50); Red Cell Distribution Width 13.2 % (11.5-14.5); Segmented Neutrophils % 62.6 %
[2019-01-08] MEDS: Nitroglycerin 0.4 MG TAB.SUBL SL PRN (20:17)
--- NOTE | 2019-01-08 20:34 | Emergency Department Note ---
Disposition Clinical Impression: Chest pain Qualifiers: Chest pain type: unspecified Qualified Code(s): R07.9 - Chest pain, unspecified Disposition: Admitted As Inpatient Condition: Good Time of Disposition: 21:04 General Adult HPI - General Chief complaint: ED Chest Pain Stated complaint: Chest pain Time Seen by Provider: 01/08/19 19:52 Source: patient, family Mode of arrival: ambulatory Limitations: no limitations Nursing Notes Reviewed: Yes Vital Signs Reviewed: Yes - History of Present Illness HPI Narrative: 83-year-old male with significant past medical history of COPD and atrial fibrillation currently on eliquis presenting to the ED with chief complaint of chest pain. Patient states he has had intermittent substernal chest pain for a few weeks. Was admitted here and had a stress test completed but no catheterization was completed at that time. Patient states yesterday he was moving things around and started having chest pain that has been constant since. He also started having some shortness of breath associated with this. Due to this his brought him in for further evaluation. Patient denies any fevers or recent illnesses. Denies any nausea, vomiting, diaphoresis or abdominal pain. Pain Scale: 0 - Related Data Home Medications Medication Instructions Recorded Confirmed Apixaban [Eliquis] 5 mg PO BID 11/30/18 01/08/19 Budesonide/Formoterol 160/4.5 2 puff IH BIDR 11/30/18 01/08/19 [Symbicort 160/4.5] Esomeprazole Magnesium [Nexium 20 mg PO DAILY 11/30/18 01/08/19 24Hr] Furosemide [Lasix] 20 mg PO DAILY 11/30/18 01/08/19 Ipratropium/Albuterol Neb [Duoneb] 3 ml IH Q6HR PRN 11/30/18 01/08/19 Montelukast [Singulair] 10 mg PO HS 11/30/18 01/08/19 Multivit with Iron,Minerals 1 each PO DAILY 11/30/18 01/08/19 [Spectravite Senior] Ipratropium/Albuterol Sulfate 1 puff IH Q6H PRN 12/29/18 12/29/18 [Combivent Respimat 20-100 Mcg] Latanoprost [Xalatan] 1 drop BOTH EYES HS 12/29/18 01/08/19 Metoprolol [Lopressor] 50 mg PO BID 12/29/18 01/08/19 Allergies Allergy/AdvReac Type Severity Reaction Status Date / Time codeine Allergy Hallucinati Verified 11/30/18 16:42 ng All systems ED: reviewed and negative except as stated. Constitutional: Denies: fever Eyes: Reports: as per HPI ENT ED: Reports: as per HPI Cardiovascular: Reports: chest pain Respiratory: Reports: dyspnea Gastrointestinal: Denies: abdominal pain Genitourinary: Reports: as per HPI Musculoskeletal: Reports: as per HPI Integumentary: Reports: as per HPI Neurological: Reports: as per HPI Psychiatric: Reports: as per HPI Endocrine: Reports: as per HPI Hematological/Lymphatic: Reports: as per HPI Allergic/Immunologic: Reports: as per HPI Past Medical History - Past Medical History Attestation: Yes The following information was validated with the patient. Medical history: Reports: arthritis, atrial fibrillation, CHF, COPD, h ypertension, RA, other Surgical history: Reports: cataract, orthopedic, other, other Psychiatric history: Reports: no psych history - Social History Smoking Status: Former smoker Smokeless Tobacco Status: No Alcohol use: Reports: rarely Drug use: Reports: none Physical Exam - General Limitations: no limitations General appearance: alert, in no apparent distress - Head Head exam: atraumatic, normocephalic, normal inspection - Eye Eye exam: Absent: scleral icterus - ENT ENT exam: mucous membranes moist - Neck Neck exam: Present: full ROM - Chest Chest inspection: Present: symmetric chest wall rise - Respiratory Respiratory exam: Present: normal lung sounds bilaterally. Absent: respiratory distress, wheezes - Cardiovascular Cardiovascular exam: Present: regular rate, irregular rhythm, normal heart sounds - Abdominal Exam Abdominal exam: Present: soft, Non-Tender. Absent: distention, guarding, rebound - Extremities Exam Extremities exam: Present: full ROM - Neurological Exam Neurological exam: Present: alert, oriented X3 - Psychiatric Psychiatric exam: Present: normal affect - Skin Skin exam: Present: warm Course Course Narrative: 83-year-old male presenting to the emergency department with chief complaint of chest pain. In the room patient is alert and oriented 3 and hemodynamically stable. Patient will be given aspirin and nitroglycerin at this time. Disposition most likely admission due to patient's heart score being 5. Patient agrees with this plan. - Reevaluation(s) Reevaluation #1: Patient's laboratory analysis within normal limits. Chest x-ray shows no acute abnormality. At this time will plan to admit the patient for chest pain rule out. Patient remains alert and oriented 3 and hemodynamically stable. Patient agrees with this plan. Vital Signs Temperature 98.3 F 01/08/19 19:55 Pulse Rate 66 01/08/19 19:55 Respiratory Rate 18 01/08/19 19:55 Blood Pressure 155/103 01/08/19 19:55 O2 Sat by Pulse Oximetry 98 01/08/19 19:55 Temperature 98.3 F 01/08/19 19:55 Pulse Rate 66 01/08/19 19:55 Respiratory Rate 18 01/08/19 19:55 Blood Pressure 155/103 01/08/19 19:55 O2 Sat by Pulse Oximetry 98 01/08/19 19:55 Oxygen Delivery Oxygen Delivery Room Air Medical Decision Making - Lab Data Result diagrams: 01/08/19 20:04 01/08/19 20:04 Lab Results 01/08/19 01/08/19 Range/Units 20:04 20:04 WBC 6.9 (4.3-11.1) K/mcL RBC 4.43 (4.19-5.50) M/mcL Hgb 14.2 (12.9-16.9) g/dL Hct 43.2 (37.5-50.1) % MCV 97.5 (83.0-100.0) fL MCH 32.1 (28.0-33.3) pg MCHC 32.9 (31.6-35.5) g/dL RDW 13.2 (11.5-14.5) % Plt Count 181 (140-400) K/mcL MPV 11.1 (9.4-12.4) fL Immature Gran % 0.3 (0-4) % Seg Neutrophils % 62.6 % Lymphocytes % 24.3 % Monocytes % 11.2 % Eosinophils % 1.2 % Basophils % 0.4 % Neutrophils # 4.3 (1.6-8.9) K/mcL Lymphocytes # 1.7 (0.6-4.6) K/mcL Monocytes # 0.8 (0.0-1.3) K/mcL Eosinophils # 0.1 (0.0-0.6) K/mcL Basophils # 0.0 (0.0-0.2) K/mcL Sodium 144 (136-145) mEq/L Potassium 4.1 (3.5-5.1) mEq/L Chloride 105 (98-107) mEq/L Carbon Dioxide 24 (23-29) mEq/L BUN 16 (8-23) mg/dL Creatinine 1.09 (0.70-1.30) mg/dL Est GFR ( Amer) > 60 (> 60) Est GFR (Non-Af Amer) > 60 (> 60) BUN/Creatinine Ratio 15 (6-26) Glucose 122 H (70-105) mg/dL Calculated Osmolality 300 (280-300) Calcium 9.3 (8.6-10.3) mg/dL Troponin I < 0.03 (< 0.04) ng/mL - EKG Data EKG #1 EKG attestation: Yes I reviewed and interpreted this EKG. EKG results narrative: Atrial flutter. 82 beats for minute. Nonspecific conduction delay. QRS 127, QTC 475. No sign of acute ST segment elevation or ischemia. Attestation Statement - Attestation Attestation: I, Shawn Henley, examined this patient and my medical decision-making was reviewed with the BOTTLE CAPPING MACHINE OPERATOR/PA/Advanced Practice Nurse/Resident Physician. I agree with the documented findings, disposition and treatment plan as described except to the extent set forth below. 83-year-old male brought to emergency by her for evaluation of chest pain. Patient has been having increased weakness, fatigue, shortness breath and chest pain with minimal exertion which has been worsening over the past few weeks. Patient has a history of atrial fibrillation and is on Eliquis. Patient denies syncopal episode. Denies fever, chills, nausea nausea, vomiting, diarrhea. EKG did not show evidence of acute STEMI. I reviewed the EKG with the resident and agree with the interpretation.. Initial troponin negative. Patient will be admitted to the hospitalist for further care and evaluation. Pain improved with nitroglycerin. Heart Score - Score History: Slightly Suspicious EKG: Non Specific repolarisation Disturbance Age: Greater than 65 Risk Factors: Equal/Greater than 3 risk factor or history of atherosclerotic disease Troponin: Less than normal limit HEART Score Total: 5
[2019-01-08 20:36] LABS: BUN/Creatinine Ratio 15 (6-26); Blood Urea Nitrogen 16 mg/dL (8-23); Calcium 9.3 mg/dL (8.6-10.3); Carbon Dioxide 24 mEq/L (23-29); Chloride 105 mEq/L (98-107); Glucose 122 mg/dL (70-105); Osmolality,Calculated 300 (280-300); Potassium 4.1 mEq/L (3.5-5.1); Sodium 144 mEq/L (136-145); eGFR For Non-African Americans > 60 (> 60)
[2019-01-08 20:39] LABS: Troponin I < 0.03 ng/mL (< 0.04)
[2019-01-08] MEDS ORDERED: Ipratropium/Albuterol Neb 3 ML IH PRN (22:21)
--- NOTE | 2019-01-08 22:21 | Internal Med History&Physical ---
Date of Encounter: 01/08/19 Time of Encounter: 22:20 Internal Medicine - H&P: HPI Chief complaint: chest pain Admitted From: Home Plans for Post Hospital Care: Home History of present illness: Eliz Doran is an 83-year-old obese man with hypertension, atrial fibrillation, diastolic heart failure, COPD, KATIA and rheumatoid arthritis who has been evaluated for chest pain on multiple occasions most recently discharged from here on 12/30 at which time he underwent nuclear stress test that was negative for ischemia and evaluated by cardiology with recommendation of outpatient follow-up. He presents again complaining of substernal chest pain has been constant since he walked up a flight of stairs when going to see his PCP Dr Ahuja yesterday associated with mild shortness of breath but no radiatio n, nausea, vomiting or diaphoresis. He said it felt as though someone punched him in the chest, pointing towards his precordium. In the ER he was given aspirin and 2 nitroglycerin tablets that brought relief of his pain. Lab work and x-ray were grossly unremarkable. EKG as reviewed by me shows atrial fibrillation. He is admitted for observation given his risk factors. Family history remarkable for heart failure in brother and father. Vitals: Reviewed General: Well-developed white male lying in bed in no acute distress. Skin: Warm and supple. HEENT: Moist mucous membranes. No conjunctivae pallor. Neck: No lymphadenopathy. No JVD. No carotid bruits. No palpable thyroid. Chest: Normal thoracic expansion. Normal breath sounds. Clear to auscultation. Heart: Irregularly irregular. No rubs or murmurs. Abdomen: Non-distended, soft and non-tender to palpation. No peritoneal reaction. Extremities: No clubbing, cyanosis. 1+ lower leg edema. No calf tenderness. Normal distal pulses. Ulnar deviation of both hands with PIP nodules noted. Neurological: Awake, alert and oriented to person, place and time. No focal deficits. Psych: Affect appropriate. Assessment/Plan 1. Chest pain: Recurring and increasing in frequency/intensity concerning for unstable angina. The negative nuclear stress test is noted however given his presenting symptoms and risk factors, he may benefit from a cardiac cath. Will consult cardiology for assessment of this possibility. It could also be scheduled as an outpatient noting he has a cardiology appointment scheduled for next week. No tachycardia or hypoxia that would be suggestive of pulmonary embolism although the acuity and severity of the pain could be seen in such cases especially since he tells me that pain worsens with deep inspiration; will check a d-dimer. 2. Hypertension: Well controlled. Resume home medications. 3. Atrial fibrillation: Rate controlled. On anticoagulation. 4. COPD: Has since quit smoking. Inhalers as needed. 5. Obesity: Counseled and educated on therapeutic lifestyle changes for weight loss as it will be of benefit in controlling comorbidities. Supervisor Insecticide evaluation advised. Past Med Surg Social Fam HX - Past Medical History Medical history: arthritis, atrial fibrillation, CHF, COPD, hypertension, RA, other Additional medical history: regurtating aorta valve Psychiatric history: no psych history - Past Surgical History Surgical History: cataract, orthopedic, other, other Additional surgical history: large intestine sx, back sx, neck sx - Social History Smoking Status: Former smoker Smokeless Tobacco Status: No Alcohol use: rarely Drug use: none - Family History Mother Adopted: No Living Status: Hx Family Cardiac Disorders: Yes (chf) Father Living Status: Hx Family Cardiac Disorders: Yes (CHF) Hx Family Neurologic Disorders: Yes (CVA) Internal Medicine - H&P: Meds Apixaban [Eliquis] 5 mg PO BID 11/30/18 [History] Budesonide/Formoterol 160/4.5 [Symbicort 160/4.5] 2 puff IH BIDR 11/30/18 [History] Esomeprazole Magnesium [Nexium 24Hr] 20 mg PO DAILY 11/30/18 [History] Furosemide [Lasix] 20 mg PO DAILY 11/30/18 [History] Ipratropium/Albuterol Neb [Duoneb] 3 ml IH Q6HR PRN 11/30/18 [History] Montelukast [Singulair] 10 mg PO HS 11/30/18 [History] Multivit with Iron,Minerals [Spectravite Senior] 1 each PO DAILY 11/30/18 [History] Ipratropium/Albuterol Sulfate [Combivent Respimat 20-100 Mcg] 1 puff IH Q6H PRN 12/29/18 [History] Latanoprost [Xalatan] 1 drop BOTH EYES HS 12/29/18 [History] Metoprolol [Lopressor] 50 mg PO BID 12/29/18 [History] Allergy/AdvReac Type Severity Reaction Status Date / Time codeine Allergy Hallucinati Verified 11/30/18 16:42 ng All Systems PM: A 10-system review of systems was performed and is negative for pertinent findings except as documented above in the HPI. - Constitutional Vitals: Temp Pulse Resp BP Pulse Ox 98.3 F 66 18 111/80 98 01/08/19 19:55 01/08/19 19:55 01/08/19 21:02 01/08/19 21:02 01/08/19 19:55 Exam: . Internal Med - H&P Results - Labs CBC & Chem 7: 01/08/19 20:04 01/08/19 20:04 Labs: Short CBC 01/08/19 Range/Units 20:04 WBC 6.9 (4.3-11.1) K/mcL Hgb 14.2 (12.9-16.9) g/dL Hct 43.2 (37.5-50.1) % Plt Count 181 (140-400) K/mcL Neutrophils # 4.3 (1.6-8.9) K/mcL BMP 01/08/19 20:04 Sodium 144 Potassium 4.1 Chloride 105 Carbon Dioxide 24 BUN 16 Creatinine 1.09 Glucose 122 H Calcium 9.3 Cardiac Enzymes 01/08/19 Range/Units 20:04 Troponin I < 0.03 (< 0.04) ng/mL - Impressions ITS Impressions Chest X-Ray 01/08/19 19:58 IMPRESSION: 1. Poor inspiration for the exam and overlying artifacts are limiting factors. 2. No definite acute pulmonary disease. 3. Calcific atherosclerosis aorta. 4. Cardiomegaly. D/ / Tucker Acuna / Tucker Acuna Interpreting Provider: Tucker Acuna - Time Spent With Patient Total time spent is greater than 50% in coordination of care (as documented) at patient's floor/unit and/or counseling patient: Greater than 35 minutes
[2019-01-08] MEDS ORDERED: Latanoprost 2.5 ML BOTTLE BOTH EYES SCH (22:30)
[2019-01-08] MEDS: Apixaban 5 MG TABLET PO SCH (22:49)
[2019-01-08] MEDS: Budesonide/Formoterol 160/4.5 1 PUFF INH IH SCH (23:11)
[2019-01-09 02:31] LABS: INR 1.4; Prothrombin Time 15.4 Seconds (9.4-12.1)
[2019-01-09 02:33] LABS: Activated Partial Thrombo Time 30.7 Seconds (26.0-36.0)
[2019-01-09 02:37] LABS: Heparin anti-factor XA UFH 1.58 IU/mL (0.30-0.70)
[2019-01-09] MEDS: Nitroglycerin 0.4 MG TAB.SUBL SL PRN ×2 (03:26→05:31)
--- NOTE | 2019-01-09 06:46 | Cardiology Consult Note ---
Date of Encounter: 01/09/19 Time of Encounter: 07:10 Assessment and Plan (1) Chest pain Current Visit: Yes Status: Acute ruled out MD. Acceptable for dc home and will arrange for outpatient [facility] with NTG SL Rx, ED precautions and temporary sedentary activity. A/R/B of LHC, med tx dw him and he is aware and agreeable with plan. Qualifiers: Chest pain type: unspecified Qualified Code(s): R07.9 - Chest pain, unspecified (2) Atrial fibrillation Current Visit: No Status: Acute Continue Eliquis, will hold dose night before outpt [facility] Qualifiers: Atrial fibrillation type: paroxysmal Qualified Code(s): I48.0 - Paroxysmal atrial fibrillation Discussion w patient/family: The assessment and plan as outlined above was discussed with the patient and/or family members who expressed understanding and agreement. All questions were answered. Thank you for involving us in the care of your patient. Please call with any questions. History of Present Illness Consult date: 01/09/19 Consult reason: recurrent chest pain Chief complaint: chest pain History of present illness: Mr. Doran is a 83 year old male with recurrent chest pain hospitalization with normal stress nuclear last admission. Moderate by gradient, diastolic CHF, AF. Chest pain upon walking up stairs associated with dyspnea improved with NTG and aspirin. He normally is very active chopping wood, etc. He is not currently taking aspirin or nitrate. Past Med Surg Social Fam HX - Past Medical History Medical history: arthritis, atrial fibrillation, CHF, COPD, hypertension, RA, other Additional medical history: regurtating aorta valve Psychiatric history: no psych history - Past Surgical History Surgical History: cataract, orthopedic, other, other Additional surgical history: large intestine sx, back sx, neck sx - Social History Smoking Status: Former smoker Smokeless Tobacco Status: No Alcohol use: rarely Drug use: none - Family History Mother Adopted: No Living Status: Hx Family Cardiac Disorders: Yes (chf) Father Living Status: Hx Family Cardiac Disorders: Yes (CHF) Hx Family Neurologic Disorders: Yes (CVA) Medications and Allergies Apixaban [Eliquis] 5 mg PO BID 11/30/18 [History] Budesonide/Formoterol 160/4.5 [Symbicort 160/4.5] 2 puff IH BIDR 11/30/18 [History] Esomeprazole Magnesium [Nexium 24Hr] 20 mg PO DAILY 11/30/18 [History] Furosemide [Lasix] 20 mg PO DAILY 11/30/18 [History] Ipratropium/Albuterol Neb [Duoneb] 3 ml IH Q6HR PRN 11/30/18 [History] Montelukast [Singulair] 10 mg PO HS 11/30/18 [History] Multivit with Iron,Minerals [Spectravite Senior] 1 each PO DAILY 11/30/18 [Histo ry] Ipratropium/Albuterol Sulfate [Combivent Respimat 20-100 Mcg] 1 puff IH Q6H PRN 12/29/18 [History] Latanoprost [Xalatan] 1 drop BOTH EYES HS 12/29/18 [History] Metoprolol [Lopressor] 50 mg PO BID 12/29/18 [History] Allergy/AdvReac Type Severity Reaction Status Date / Time codeine Allergy Hallucinati Verified 11/30/18 16:42 ng All Systems Review: The remainder of the systems were reviewed and are negative - Constitutional Constitutional: no chills, no fever(s) - EENT Eyes: no blurred vision, no loss of vision Nose, mouth and throat: no dysphagia, no epistaxis - Cardiovascular Cardiovascular: chest pain at rest, chest pain with exertion - Respiratory Respiratory: no hemoptysis, no wheezing - Gastrointestinal Gastrointestinal: no hematemesis, no hematochezia - Genitourinary Genitourinary: no hematuria, no nocturia - Musculoskeletal Musculoskeletal: no arthralgias, no back pain - Integumentary Integumentary: no rash, no unusual bruising - Neurological Neurological: no syncope, no tingling - Psychiatric Psychiatric: no hallucinations, no panic attacks - Hematological/Lymphatic Hematologic/Lymphatic: no easy bleeding, no easy bruising Physical Examination Vital Signs, Last 4 Hours Temp Pulse Resp BP Pulse Ox 01/09/19 03:56 97.5 F L 81 16 130/79 95 General: Conversant HEENT: Atraumatic Neck: No JVD Cardiac: Reg Rate and Rhythm Lungs: Normal Breath Sounds Neuro: Alert and responsive Abdomen: Soft Skin: No rashes noted on visualized skin Musculoskeletal: No Chest Wall Tenderness Extremities: No Edema Results 01/08/19 20:04 01/08/19 20:04 Lab Results 01/08/19 01/08/19 01/09/19 20:04 20:04 01:45 WBC 6.9 Hgb 14.2 Hct 43.2 Plt Count 181 INR 1.4 APTT 30.7 D-Dimer 449 Sodium 144 Potassium 4.1 Chloride 105 Carbon Dioxide 24 BUN 16 Creatinine 1.09 Glucose 122 H Calcium 9.3 Troponin I < 0.03 01/09/19 01:45 WBC Hgb Hct Plt Count INR APTT D-Dimer Sodium Potassium Chloride Carbon Dioxide BUN Creatinine Glucose Calcium Troponin I < 0.03 - EKG Interpretation EKG results cardiology: personally reviewed (oziel), no diagnostic ischemia Consult Discharge Plan - Plan Referrals: Bj Ahuja MD [Primary Care Provider] - (APPOINBTMENT HAS BEEN REQUESTED.)
[2019-01-09] MEDS: Budesonide/Formoterol 160/4.5 1 PUFF INH IH SCH (07:42)
--- NOTE | 2019-01-09 08:26 | Internal Med Progress Note ---
Hospitalist Progress Note - Encounter Date of Encounter: 01/09/19 - Exam Vitals: Temp Pulse Resp BP Pulse Ox 98.1 F 79 18 153/82 96 01/09/19 08:03 01/09/19 08:03 01/09/19 08:03 01/09/19 08:03 01/09/19 08:03 - Assessment and Plan (1) Chest pain Current Visit: Yes Status: Acute (2) (HFpEF) heart failure with preserved ejection fraction Current Visit: No Status: Acute (3) Atrial fibrillation Current Visit: No Status: Acute (4) Hypertension Current Visit: No Status: Acute (5) COPD (chronic obstructive pulmonary disease) Current Visit: No Status: Chronic (6) KATIA (obstructive sleep apnea) Current Visit: No Status: Chronic - Time Spent with Patient Total time spent is greater than 50% in coordination of care (as documented) at patient's floor/unit and/or counseling patient: Internal Medicine: Result - Labs CBC & Chem 7: 01/08/19 20:04 01/08/19 20:04 Labs: Short CBC 01/08/19 Range/Units 20:04 WBC 6.9 (4.3-11.1) K/mcL Hgb 14.2 (12.9-16.9) g/dL Hct 43.2 (37.5-50.1) % Plt Count 181 (140-400) K/mcL Neutrophils # 4.3 (1.6-8.9) K/mcL BMP 01/08/19 20:04 Sodium 144 Potassium 4.1 Chloride 105 Carbon Dioxide 24 BUN 16 Creatinine 1.09 Glucose 122 H Calcium 9.3 Cardiac Enzymes 01/08/19 01/09/19 Range/Units 20:04 01:45 Troponin I < 0.03 < 0.03 (< 0.04) ng/mL - ABG Interpretation ABG results: PT/INR, D-dimer PT 15.4 Seconds (9.4-12.1) H 01/09/19 01:45 449 ng/mLFEU (0-500) 01/09/19 01:45 - Impressions Impressions Chest X-Ray 01/08/19 19:58 IMPRESSION: 1. Poor inspiration for the exam and overlying artifacts are limiting factors. 2. No definite acute pulmonary disease. 3. Calcific atherosclerosis aorta. 4. Cardiomegaly. D/ / Tucker Acuna / Tucker Acuna Interpreting Provider: Tucker Acuna Consult Discharge Plan - Plan Referrals: Bj Ahuja MD [Primary Care Provider] - (1) Chest pain Qualifiers: Chest pain type: unspecified Qualified Code(s): R07.9 - Chest pain, unsp ecified (2) (HFpEF) heart failure with preserved ejection fraction Qualifiers: Heart failure chronicity: acute on chronic Qualified Code(s): I50.33 - Acute on chronic diastolic (congestive) heart failure (3) Atrial fibrillation Qualifiers: Atrial fibrillation type: paroxysmal Qualified Code(s): I48.0 - Paroxysmal atrial fibrillation (4) Hypertension Qualifiers: Hypertension type: essential hypertension Qualified Code(s): I10 - Essential (primary) hypertension (5) COPD (chronic obstructive pulmonary disease) Qualifiers: COPD type: emphysema Emphysema type: unspecified Qualified Code(s): J43.9 - Emphysema, unspecified
[2019-01-09] MEDS ORDERED: Multivit/Ca/Min/Fe/FA 1 TAB TABLET PO SCH (09:00)
[2019-01-09] MEDS ORDERED: Aspirin Enteric Coated 81 MG Tablet PO SCH (09:00)
[2019-01-09] MEDS ORDERED: Furosemide 20 MG TABLET PO SCH (09:00)
[2019-01-09] MEDS: Apixaban 5 MG TABLET PO SCH (11:08)
[2019-01-09 11:13] VITALS: BP 169/89
--- NOTE | 2019-01-09 11:51 | Discharge Summary ---
- NOTES TO OUTPATIENT PROVIDER Notes to Outpatient Provider: Outpt cardiac cath with Dr Vargas next week. ASA + imdur + nitro rxs Date of Encounter: 01/09/19 Time of Encounter: 10:15 - Discharge Diagnosis (1) Chest pain Priority: Primary Status: Resolved Assessment and Plan: Recurrent episodes of chest pain Most recent admit for same with dc to home 12/30 when stress test negative, was to follow up with cards outpt for further eval Returned with recurrent episode chest pain EKG rate controlled afib with isolated III TWI and no acute ischemic changes Trops negative x3 CXR neg for acute changes D Dimer negative -seen in consult by Dr Vargas--will dc to home with outpt [facility] with him next week -ASA + nitro + imdur started and rxs on dc given Qualifiers: Chest pain type: precordial pain Qualified Code(s): R07.2 - Precordial pain (2) (HFpEF) heart failure with preserved ejection fraction Priority: Secondary Status: Chronic Assessment and Plan: stable, chronic -home BB and PO lasix Qualifiers: Heart failure chronicity: chronic Qualified Code(s): I50.32 - Chronic diastolic (congestive) heart failure (3) Atrial fibrillation Priority: Secondary Status: Chronic Assessment and Plan: chronic, stable -home BB and Eliquis Qualifiers: Atrial fibrillation type: paroxysmal Qualified Code(s): I48.0 - Paroxysmal atrial fibrillation (4) Hypertension Priority: Secondary Status: Chronic Assessment and Plan: Elevated Bps intermittently this admission -fu with cards -cont BB, imdur added Qualifiers: Hypertension type: essential hypertension Qualified Code(s): I10 - Essential (primary) hypertension (5) COPD (chronic obstructive pulmonary disease) Priority: Secondary Status: Chronic Assessment and Plan: chronic stable -home nebs, singulair, symbicort Qualifiers: COPD type: emphysema Emphysema type: unspecified Qualified Code(s): J43.9 - Emphysema, unspecified (6) KATIA (obstructive sleep apnea) Priority: Secondary Status: Chronic Assessment and Plan: not on cpap at home as did not tolerate Hospital course: Mr. Doran is a 83 year old male with recurrent episodes of chest pain that have been evaluated as recently as about one week ago at [facility] [place]. The details of his hospital stay can be found in the diagnoses section of this document. He had an uncomplicated course, without chest pain since admission. EKG, trops and tele were unremarkable. Given his recent dc with outpt cards follow up, cardiology was consulted upon admission. Dr Vargas saw pt and discussed with he and and plan is for [facility] in outpt setting with him next week. He was started on imdur and given rxs for daily asa and nitro prn. OF NOTE: Dr Vargas sent rxs for nitro and imdur to [facility] pharmacy through [facility]. I sent asa rx to same pharmacy through [facility]. I confirmed wiht his pharmacist that all rxs were received. He is discharged to home in stable condition Discharge discussed with: patient, family, nurse, custom decorating consultant Time spent discussing smoking cessation with patient: more than 10 minutes - Time Spent with Patient Total time spent providing and/or coordinating discharge services: Time spent: Greater than 30 minutes (35 min) - Discharge Medications Prescriptions: New Aspirin Enteric Coated [Aspirin EC] 81 mg PO DAILY #20 tablet. Isosorbide MONOnitrate (24 HR) [Imdur] 30 mg PO DAILY #0 tab.er.24h Nitroglycerin 0.4 mg SL Q5MPRN PRN #0 tab.subl PRN Reason: Chest Pain Continued Latanoprost [Xalatan] 1 drop BOTH EYES HS Metoprolol [Lopressor] 50 mg PO BID Ipratropium/Albuterol Sulfate [Combivent Respimat 20-100 Mcg] 1 puff IH Q6H PRN PRN Reason: Shortness Of Breath Ipratropium/Albuterol Neb [Duoneb] 3 ml IH Q6HR PRN PRN Reason: Shortness Of Breath Furosemide [Lasix] 20 mg PO DAILY Esomeprazole Magnesium [Nexium 24Hr] 20 mg PO DAILY Apixaban [Eliquis] 5 mg PO BID Multivit with Iron,Minerals [Spectravite Senior] 1 each PO DAILY Budesonide/Formoterol 160/4.5 [Symbicort 160/4.5] 2 puff IH BIDR Montelukast [Singulair] 10 mg PO HS Home Medications: Apixaban [Eliquis] 5 mg PO BID 11/30/18 [History] Budesonide/Formoterol 160/4.5 [Symbicort 160/4.5] 2 puff IH BIDR 11/30/18 [History] Esomeprazole Magnesium [Nexium 24Hr] 20 mg PO DAILY 11/30/18 [History] Furosemide [Lasix] 20 mg PO DAILY 11/30/18 [History] Ipratropium/Albuterol Neb [Duoneb] 3 ml IH Q6HR PRN 11/30/18 [History] Montelukast [Singulair] 10 mg PO HS 11/30/18 [History] Multivit with Iron,Minerals [Spectravite Senior] 1 each PO DAILY 11/30/18 [History] Ipratropium/Albuterol Sulfate [Combivent Respimat 20-100 Mcg] 1 puff IH Q6H PRN 12/29/18 [History] Latanoprost [Xalatan] 1 drop BOTH EYES HS 12/29/18 [History] Metoprolol [Lopressor] 50 mg PO BID 12/29/18 [History] Aspirin Enteric Coated [Aspirin EC] 81 mg PO DAILY #20 tablet.dr 01/09/19 [Rx] Isosorbide MONOnitrate (24 HR) [Imdur] 30 mg PO DAILY #0 tab.er.24h 01/09/19 [Rx] Nitroglycerin 0.4 mg SL Q5MPRN PRN #0 tab.subl 01/09/19 [Rx] Allergies/Adverse Reactions: Allergy/AdvReac Type Severity Reaction Status Date / Time codeine Allergy Hallucinati Verified 11/30/18 16:42 ng Date of admission: 01/08/19 20:53 Primary care physician: Bj Ahuja MD Consults: 01/08/19 22:12 Consult to Cardiology [CONS] Routine Comment: Consulting Provider: [facility] [place] Reason for Consult: Please evaluate this 83 year old male with recurring angina for suitability of cardiac cath noting a negative nuclear stress test Call Completed: No Discharging clinician: Macey Hill - Constitutional Vitals: Temp Pulse Resp BP Pulse Ox 97.8 F 64 17 169/89 95 01/09/19 11:12 01/09/19 11:12 01/09/19 11:12 01/09/19 11:12 01/09/19 11:12 Exam: awake, very pleasant, at bedside. He denies any chest pain, pressure, sob , n/v or sweats this morning. Denies le edema. He has some confusion at baseline which notes. Dr Vargas to bedside following my exam gen- alert, awake,appears stated age eyes- pupils equal round cv- reg rate and rhythm, normal s1,s2, + SM, no le edema or jvd lungs- ctabl, no wheezing, rhonchi or crackles, normal resp effort abd- soft, non tender, non distended, + bs neuro- AAOx3, CN grossly intact - Patient Status Disposition: Home, Self-Care Condition: Good Overall status at discharge: patient is back to baseline - Discharge Instructions Follow Up With: Bj Ahuja MD [Primary Care Provider] - (APPOINBTMENT HAS BEEN REQUESTED.) Yosef Vargas MD [Partnered Physician] - Additional Instructions: You will have a cardiac catheterization with Dr Vargas next week as he discussed with you. Your new medications are a daily baby aspirin, imdur and you were also given a prescription for as needed nitroglycerin for chest pain. These prescriptions have already been sent to your [facility] pharmacy and will be available for parts picker today. - Diet and Activity Activity: increase activity as tolerated Diet: advance to your usual diet, low fat, low cholesterol, low salt diet
[2019-01-10] MEDS ORDERED: Isosorbide MONOnitrate (24 HR) 30 MG TAB.ER.24H PO SCH (09:00)
--- NOTE | 2019-01-11 08:42 | Electrocardiograph Report ---
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
== END 2019-01-09 13:26 | disposition home or self-care (01) ==
LOC: EMEROOARM 19:50 → 3BNU 19:50 → SUATTDRO 20:53 → 3BNU 21:04
PROVIDERS: ADMIT Family Medicine; ATTEND Internal Medicine

== ENCOUNTER 2019-04-26 13:29 | Observation (INO) ==
[2019-04-26] MEDS ORDERED: 0.9 % Sodium Chloride 500 ML IV ONE (14:13)
[2019-04-26 15:00] LABS: Basophils % 0.4 %; Eosinophils # 0.1 K/mcL (0.0-0.6); Eosinophils % 1.7 %; Hematocrit 38.2 % (37.5-50.1); Hemoglobin 12.7 g/dL (12.9-16.9); Immature Granulocytes % 0.4 % (0-4); Lymphocytes # 1.4 K/mcL (0.6-4.6); Lymphocytes % 19.6 %; Mean Corpuscular HGB Conc 33.2 g/dL (31.6-35.5); Mean Corpuscular Hemoglobin 31.8 pg (28.0-33.3); Mean Corpuscular Volume 95.5 fL (83.0-100.0); Mean Platelet Volume 10.7 fL (9.4-12.4); Monocytes % 13.4 %; Neutrophils # 4.6 K/mcL (1.6-8.9); Platelet Count 256 K/mcL (140-400); Segmented Neutrophils % 64.5 %; White Blood Count 7.1 K/mcL (4.3-11.1)
[2019-04-26 15:08] LABS: INR 1.4; Prothrombin Time 15.7 Seconds (9.4-12.1)
[2019-04-26 15:11] LABS: Activated Partial Thrombo Time 31.2 Seconds (26.0-36.0)
[2019-04-26 15:24] LABS: BUN/Creatinine Ratio 23 (6-26); Blood Urea Nitrogen 15 mg/dL (8-23); Calcium 8.9 mg/dL (8.6-10.3); Carbon Dioxide 28 mEq/L (23-29); Chloride 106 mEq/L (98-107); Glucose 92 mg/dL (70-105); Osmolality,Calculated 292 (280-300); Potassium 4.1 mEq/L (3.5-5.1); Sodium 141 mEq/L (136-145); eGFR For African Americans > 60 (> 60); eGFR For Non-African Americans > 60 (> 60)
--- NOTE | 2019-04-26 16:54 | Emergency Department Note ---
Disposition Clinical Impression: Bronchitis GI bleed Qualifiers: GI bleed type/associated pathology: unspecified gastrointestinal hemorrhage type Qualified Code(s): K92.2 - Gastrointestinal hemorrhage, unspecified Disposition: Admitted As Inpatient Referrals: Bj Ahuja MD [Primary Care Provider] - Time of Disposition: 17:01 GI Bleed HPI - General Chief complaint: ED Headache Stated complaint: Rectal bleed pt on blood thinners Time Seen by Provider: 04/26/19 13:48 Source: patient, family Limitations: no limitations Nursing Notes Reviewed: Yes Vital Signs Reviewed: Yes - History of Present Illness HPI Narrative: This is an 83-year-old gentleman presents to the right red blood per rectum since this morning. 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 Patient states that he has been feeling very weak over the past few days. Today, he noticed some blood in his stools. He describes grossly bloody stools. He denies any abdominal pain. Patient also notes that he is being treated for pneumonia for the past week. Just finished a course of antibiotics. He has had some cough and congestion still continues at this point. He denies any chest pain. Denies any fever or chills. He describes symptoms as moderate. There are no obvious aggravating or relieving factors. Onset (ago): day(s) Consistency: intermittent Severity: mild Improves with: nothing Worsens with: nothing Context: anticoagulant use Associated symptoms: Denies: abdominal pain, nausea, vomiting - Related Data Home Medications Medication Instructions Recorded Confirmed Apixaban [Eliquis] 5 mg PO BID 11/30/18 01/13/19 Furosemide [Lasix] 20 mg PO DAILY 11/30/18 01/13/19 Ipratropium/Albuterol Neb [Duoneb] 3 ml IH Q6HR PRN 11/30/18 01/13/19 Montelukast [Singulair] 10 mg PO HS 11/30/18 01/13/19 Ipratropium/Albuterol Sulfate 1 puff IH Q6H PRN 12/29/18 01/13/19 [Combivent Respimat 20-100 Mcg] Latanoprost [Xalatan] 1 drop BOTH EYES HS 12/29/18 01/13/19 Metoprolol [Lopressor] 50 mg PO BID 12/29/18 01/13/19 Budesonide/Formoterol 160/4.5 1 puff IH BIDR 01/13/19 01/13/19 [Symbicort 160/4.5] Gluc/Ezequiel-MSM#1/C/Jorden/Rishi/Bor 1 each PO HS 01/13/19 01/13/19 [Osteo Bi-Flex Caplet] Isosorbide MONOnitrate (24 HR) 60 mg PO DAILY 01/13/19 01/13/19 [Imdur] Multivitamin/Iron/Folic Acid 1 each PO HS 01/13/19 01/13/19 [Centrum Complete Multivit Tab] Omeprazole [PriLOSEC] 20 mg PO BIDAC 01/13/19 01/13/19 Triamcinolone Acetonide [24 Hour 1 spray NS HS 01/13/19 01/13/19 Nasal Allergy] Vits A,C,E/Lutein/Minerals [Vision 1 each PO DAILY 01/13/19 01/13/19 Formula with Lutein Tab] dilTIAZem HCl [Diltiazem 24Hr ER 120 mg PO DAILY 01/13/19 01/13/19 (Cd)] Previous Rx's Medication Instructions Recorded Aspirin Enteric Coated [Aspirin EC] 81 mg PO DAILY #20 tablet. 01/09/19 Nitroglycerin 0.4 mg SL Q5MPRN PRN #0 tab.subl 01/09/19 Allergies Allergy/AdvReac Type Severity Reaction Status Date / Time codeine Allergy Hallucinati Verified 11/30/18 16:42 ng All systems ED: reviewed and negative except as stated. Constitutional: Reports: weakness. Denies: fever, chills ENT ED: Reports: congestion Cardiovascular: Denies: chest pain, palpitations, dyspnea on exertion Respiratory: Reports: cough. Denies: dyspnea, hemoptysis Gastrointestinal: Reports: hematochezia. Denies: abdominal pain, nausea, vomiting, hematemesis, melena Neurological: Reports: weakness Past Medical History - Past Medical History Medical history: Reports: arthritis, atrial fibrillation, CHF, COPD, GERD, hypertension, RA, other Surgical history: Reports: cataract, orthopedic, other, other Psychiatric history: Reports: no psych history - Social History Smoking Status: Former smoker Smokeless Tobacco Status: No Alcohol use: Reports: rarely Drug use: Reports: none Physical Exam - General Limitations: no limitations General appearance: alert, in no apparent distress - Head Head exam: atraumatic, normocephalic - Eye Eye exam: Present: normal appearance - ENT ENT exam: normal exam - Chest Chest inspection: Present: normal inspection - Respiratory Respiratory exam: Present: normal lung sounds bilaterally. Absent: respiratory distress, wheezes - Cardiovascular Cardiovascular exam: Present: regular rate, normal rhythm - Abdominal Exam Abdominal exam: Present: soft, Non-Tender. Absent: tenderness, distention, guarding, rebound - Rectal Exam Rectal exam: Present: heme (+) stool, other (Blood-tinged stool). Absent: black stool, hemorrhoids, mass - Back Exam Back exam: Present: normal inspection - Neurological Exam Neurological exam: Present: alert, oriented X3, CN II-XII intact - Psychiatric Psychiatric exam: Present: normal affect - Skin Skin exam: Present: warm Course Vital Signs Temperature 97.7 F 04/26/19 13:39 Pulse Rate 57 04/26/19 13:39 Respiratory Rate 18 04/26/19 13:39 Blood Pressure 133/69 04/26/19 13:39 O2 Sat by Pulse Oximetry 95 04/26/19 13:39 Temperature 97.7 F 04/26/19 14:28 Pulse Rate 52 04/26/19 15:56 Respiratory Rate 16 04/26/19 15:56 Blood Pressure 134/79 04/26/19 15:56 O2 Sat by Pulse Oximetry 98 04/26/19 15:56 Oxygen Delivery Oxygen Delivery Room Air GI Bleed - [facility] Narrative Medical decision making narrative: Clinical picture suggestive of lower GI bleed secondary to anticoagulation use. Patient is hemodynamically stable. 2. Bronchitis versus pneumonia. We will get a chest x-ray given persistent coughing. We will check basic labs. EKG shows normal sinus rhythm at 53 beats per minute. Right axis deviation. Normal intervals. No acute injury pattern. 1621 The patient reverted to. Patient feels better. Labs reviewed. Unremarkable. Chest x-ray is negative for pneumonia. Given this patient's weakness, age and comorbidities, and will admit for observation given his H&H is stable. 1643 Patient's condition discussed with the hospitalist. Will admit. - Differential Diagnosis Likely: Lower gastrointestinal hemorrhage - Medical Records Medical records reviewed: Yes I reviewed the patient's medical records. - Lab Data Lab results reviewed: Yes I reviewed the patient's lab results. Result diagrams: 04/26/19 14:38 04/26/19 14:38 Lab Results 04/26/19 04/26/19 04/26/19 Range/Units 14:38 14:38 14:38 WBC 7.1 (4.3-11.1) K/mcL RBC 4.00 L (4.19-5.50) M/mcL Hgb 12.7 L (12.9-16.9) g/dL Hct 38.2 (37.5-50.1) % MCV 95.5 (83.0-100.0) fL MCH 31.8 (28.0-33.3) pg MCHC 33.2 (31.6-35.5) g/dL RDW 13.0 (11.5-14.5) % Plt Count 256 (140-400) K/mcL MPV 10.7 (9.4-12.4) fL Immature Gran % 0.4 (0-4) % Seg Neutrophils % 64.5 % Lymphocytes % 19.6 % Monocytes % 13.4 % Eosinophils % 1.7 % Basophils % 0.4 % Neutrophils # 4.6 (1.6-8.9) K/mcL Lymphocytes # 1.4 (0.6-4.6) K/mcL Monocytes # 1.0 (0.0-1.3) K/mcL Eosinophils # 0.1 (0.0-0.6) K/mcL Basophils # 0.0 (0.0-0.2) K/mcL PT 15.7 H (9.4-12.1) Seconds INR 1.4 APTT 31.2 (26.0-36.0) Seconds Sodium 141 (136-145) mEq/L Potassium 4.1 (3.5-5.1) mEq/L Chloride 106 (98-107) mEq/L Carbon Dioxide 28 (23-29) mEq/L BUN 15 (8-23) mg/dL Creatinine 0.64 L (0.70-1.30) mg/dL Est GFR ( Amer) > 60 (> 60) Est GFR (Non-Af Amer) > 60 (> 60) BUN/Creatinine Ratio 23 (6-26) Glucose 92 (70-105) mg/dL Calculated Osmolality 292 (280-300) Calcium 8.9 (8.6-10.3) mg/dL Stool Occult Bld Scrn (Negative) Blood Type Antibody Screen 04/26/19 04/26/19 Range/Units 14:38 15:54 WBC (4.3-11.1) K/mcL RBC (4.19-5.50) M/mcL Hgb (12.9-16.9) g/dL Hct (37.5-50.1) % MCV (83.0-100.0) fL MCH (28.0-33.3) pg MCHC (31.6-35.5) g/dL RDW (11.5-14.5) % Plt Count (140-400) K/mcL MPV (9.4-12.4) fL Immature Gran % (0-4) % Seg Neutrophils % % Lymphocytes % % Monocytes % % Eosinophils % % Basophils % % Neutrophils # (1.6-8.9) K/mcL Lymphocytes # (0.6-4.6) K/mcL Monocytes # (0.0-1.3) K/mcL Eosinophils # (0.0-0.6) K/mcL Basophils # (0.0-0.2) K/mcL PT (9.4-12.1) Seconds INR APTT (26.0-36.0) Seconds Sodium (136-145) mEq/L Potassium (3.5-5.1) mEq/L Chloride (98-107) mEq/L Carbon Dioxide (23-29) mEq/L BUN (8-23) mg/dL Creatinine (0.70-1.30) mg/dL Est GFR ( Amer) (> 60) Est GFR (Non-Af Amer) (> 60) BUN/Creatinine Ratio (6-26) Glucose (70-105) mg/dL Calculated Osmolality (280-300) Calcium (8.6-10.3) mg/dL Stool Occult Bld Scrn Positive A (Negative) Blood Type A NEGATIVE Antibody Screen NEGATIVE - Radiology Data Radiology results reviewed: Yes I reviewed the patient's radiology results. - EKG Data EKG attestation: Yes I reviewed and interpreted this EKG.
[2019-04-26] MEDS ORDERED: Ondansetron 4 MG/2 ML VIAL IVP PRN (17:46)
[2019-04-26] MEDS ORDERED: Naloxone 0.4 MG/ML INJ IVP PRN (17:46)
--- NOTE | 2019-04-26 18:05 | Internal Med History&Physical ---
Date of Encounter: 04/26/19 Time of Encounter: 17:15 Internal Medicine - H&P: HPI Chief complaint: bright red blood per rectum Admitted From: Emergency Dept Plans for Post Hospital Care: Home History of present illness: Mr. Doran is a 83 year old male with a history of hypertension for fibrillation on anticoagulation with Eliquis, COPD heart failure with preserved ejection fraction obstructive sleep apnea not on CPAP and a history of colonic polyps status post partial colectomy. He presented to the ED with complaints of one episode of bright red blood per rectum that occurred this morning. He denies any prior history of GI bleed he stated that his last colonoscopy was years ago. According to the was at his bedside the patient had 4 feet of colon removed due to his colononic adenoma. Patient still has subsequent since the nausea colectomy he has had chronic episodes of urgency with bowel movements but denies any diarrhea. He denies also history of chronic constipation. stated that patient over the past few weeks have the patient to become self patient admits to having generalized fatigue and malaise was evaluated at the [facility] and treated with antimicrobial therapy. His workup at the ED was unremarkable with hemoglobin levels of 12.7 patient denies any subsequent episodes of hematochezia. Past Med Surg Social Fam HX - Past Medical History Medical history: arthritis, atrial fibrillation, CHF, COPD, GERD, hypertension, RA, other Additional medical history: MACULAR DEGENERATION, CHRONIC BACK PAIN, LEFT TOE NEUROPATHY, GLAUCOMA, AORTIC STENOSIS, Psychiatric history: no psych history - Past Surgical History Surgical History: cataract, orthopedic, other, other Additional surgical history: large intestine sx, back sx, neck sx, CATARACT SURGERY, DENTAL SURGERY, EYE SURGERY - Social History Smoking Status: Former smoker Smokeless Tobacco Status: No Alcohol use: rarely Drug use: none - Family History Mother Adopted: No Living Status: Hx Family Cardiac Disorders: Yes (chf) Father Living Status: Hx Family Cardiac Disorders: Yes (CHF) Hx Family Neurologic Disorders: Yes (CVA) Internal Medicine - H&P: Meds Apixaban [Eliquis] 5 mg PO BID 11/30/18 [History] Furosemide [Lasix] 20 mg PO DAILY 11/30/18 [History] Ipratropium/Albuterol Neb [Duoneb] 3 ml IH Q6HR PRN 11/30/18 [History] Montelukast [Singulair] 10 mg PO HS 11/30/18 [History] Ipratropium/Albuterol Sulfate [Combivent Respimat 20-100 Mcg] 1 puff IH Q6H PRN 12/29/18 [History] Metoprolol [Lopressor] 50 mg PO BID 12/29/18 [History] Aspirin Enteric Coated [Aspirin EC] 81 mg PO DAILY #20 tablet. 01/09/19 [Rx] Budesonide/Formoterol 160/4.5 [Symbicort 160/4.5] 1 puff IH BIDR 01/13/19 [History] Gluc/Ezequiel-MSM#1/C/Jorden/Rishi/Bor [Osteo Bi-Flex Caplet] 1 each PO HS 01/13/19 [His tory] Multivitamin/Iron/Folic Acid [Centrum Complete Multivit Tab] 1 each PO HS 01/13/19 [History] Omeprazole [PriLOSEC] 20 mg PO BIDAC 01/13/19 [History] dilTIAZem HCl [Diltiazem 24Hr ER (Cd)] 120 mg PO DAILY 01/13/19 [History] Carbamide Peroxide 6.5 % BOTH EARS AD 04/26/19 [History] Allergy/AdvReac Type Severity Reaction Status Date / Time codeine Allergy Hallucinati Verified 11/30/18 16:42 ng All Systems PM: A 10-system review of systems was performed and is negative for pertinent findings except as documented above in the HPI. Review of systems: GENERAL: Denies fever, but reports chills, fatigue generalized weakness and malaise DERMATOLOGIC: Denies itch, rash or lesions HEENT: Denies headache, blurriness, diplopia or decreased visual acuity, ear pain, tinnitus, rhinorrhea, sinus tenderness or sore throat RESPIRATORY: Denies SOB, cough, hemoptysis or pleuritic chest pain CARDIOVASCULAR: Denies chest pain, LE edema, palpitation or syncope GASTRO INTESTINAL: Denies cramps, nausea/vomiting, diarrhea or constipation, melena MUSCULOSKELATAL: report chronic bilateral shoulder pain PSYCH: Denies worsening anxiety, or depression NEURO: Denies vertigo, dizziness, or ataxia that reports paresthesias in bilateral feet GENITURINARY: Denies dysuria, nocturia or urinary incontinence - Constitutional Vitals: Temp Pulse Resp BP Pulse Ox 97.7 F 52 16 134/79 98 04/26/19 14:28 04/26/19 15:56 04/26/19 15:56 04/26/19 15:56 04/26/19 15:56 Exam: GENERAL: NAD, A&O x3, pleasant and conversant, at the bedside SKIN: [place] warm and dry, No skin lesions or rashes, non-jaundiced EYES: EOMI, PERRLA, no sclera icterus HENT: Head atraumatic, no facial asymmetry, frontal and maxillary sinus non- tender, normal hearing, oropharynx and mucosa moist and without any exudates NECK: No cervical lymphadenopathy, trachea midline, thyroid is palpable does not appear enlarged LUNGS: vesicular breath sounds, clear to auscultation, no wheeze, rhonchi, rales or crackles. Non labored respirations HEART: Normal rate and rhythm. Bradycardic, grade 3/6 holosystolic murmur noted ABDOMEN: soft, non-tender, non-distended, bowel sounds x 4 normoactive EXTRMITIES: No LE asymmetry, No LE edema, pedal pulses 1+ and radial pulses 2 + and equal bilaterally NEURO: Speech and comprehension appears intact. PSYCH: Cooperative, non- anxious or irritable, mood and affect is appropriate Internal Med - H&P Results - Labs CBC & Chem 7: 04/26/19 14:38 04/26/19 14:38 Labs: Short CBC 04/26/19 Range/Units 14:38 WBC 7.1 (4.3-11.1) K/mcL Hgb 12.7 L (12.9-16.9) g/dL Hct 38.2 (37.5-50.1) % Plt Count 256 (140-400) K/mcL Neutrophils # 4.6 (1.6-8.9) K/mcL BMP 04/26/19 14:38 Sodium 141 Potassium 4.1 Chloride 106 Carbon Dioxide 28 BUN 15 Creatinine 0.64 L Glucose 92 Calcium 8.9 - Impressions ITS Impressions Chest X-Ray 04/26/19 14:50 IMPRESSION: No acute cardiopulmonary disease D/ / Avery Bradford MD / Avery Bradford MD Interpreting Provider: Avery Bradford MD - Assessment and Plan (1) GI bleed Current Visit: Yes Status: Acute Assessment and plan: Patient reports history of prior colonoscopies, colonic polyps status post partial colectomy. Reports one episode hematochezia hemoglobin stable at 12.7 with trend H&H will hold his Eliquis and consult gastroenterology. Apart from bradycardia otherwise vitals stable Qualifiers: GI bleed type/associated pathology: unspecified gastrointestinal hemorrhage type Qualified Code(s): K92.2 - Gastrointestinal hemorrhage, unspecified (2) Malaise and fatigue Current Visit: Yes Status: Acute Assessment and plan: Patient complaining of malaise and fatigue noted to be bradycardic would initiate workup with laboratory-TSH is CBC BMP was unremarkable will obtain a 2- D echo given the significant finding of holosystolic murmur (3) (HFpEF) heart failure with preserved ejection fraction Current Visit: Yes Status: Chronic Assessment and plan: Given his complaining of fatigue will repeat 2-D echo, he is on metoprolol and Lasix and diltiazem he is quite bradycardic we will hold diltiazem Qualifiers: Heart failure chronicity: chronic Qualified Code(s): I50.32 - Chronic diastolic (congestive) heart failure (4) Atrial fibrillation Current Visit: Yes Status: Chronic Assessment and plan: Not evidence on exam or telemetry at the bedside in the ED. He is somewhat bradycardic on diltiazem and metoprolol will hold Cardizem for now, Eliquis on hold due to patient presented with GI bleed Qualifiers: Atrial fibrillation type: paroxysmal Qualified Code(s): I48.0 - Paroxysmal atrial fibrillation (5) COPD (chronic obstructive pulmonary disease) Current Visit: Yes Status: Chronic Assessment and plan: DuoNeb as needed Qualifiers: COPD type: emphysema Emphysema type: unspecified Qualified Code(s): J43.9 - Emphysema, unspecified (6) Hypertension Current Visit: Yes Status: Chronic Assessment and plan: Patient is bradycardic we will hold his diltiazem and continue metoprolol Qualifiers: Hypertension type: essential hypertension Qualified Code(s): I10 - Essential (primary) hypertension (7) KATIA (obstructive sleep apnea) Current Visit: Yes Status: Chronic Assessment and plan: Patient denies formal diagnosis of KATIA although listed on his problem list. He stated that he was told he does not need to use CPAP which he said after he refused CPAP (8) Obesity (BMI 30-39.9) Current Visit: Yes Status: Chronic Assessment and plan: Encourage lifestyle changes diet and exercise (9) DVT prophylaxis Current Visit: Yes Status: Acute Assessment and plan: GI bleed presentation SCDs - Time Spent With Patient Total time spent is greater than 50% in coordination of care (as documented) at patient's floor/unit and/or counseling patient:
[2019-04-26] MEDS ORDERED: Ipratropium/Albuterol Neb 3 ML IH PRN (18:19)
[2019-04-26] MEDS: 0.9 % Sodium Chloride 1,000 ML IVC SCH (18:57)
[2019-04-26 19:38] LABS: Hematocrit 41.3 % (37.5-50.1); Hemoglobin 13.5 g/dL (12.9-16.9)
[2019-04-26] MEDS: Budesonide/Formoterol 160/4.5 1 PUFF INH IH SCH (19:54)
[2019-04-26] MEDS: Multivit/Ca/Min/Fe/FA 1 TAB TABLET PO SCH (21:51)
[2019-04-27] MEDS: 0.9 % Sodium Chloride 1,000 ML IVC SCH ×2 (05:24→19:21)
[2019-04-27 05:50] LABS: Basophils % 0.4 %; Eosinophils # 0.1 K/mcL (0.0-0.6); Eosinophils % 1.4 %; Hematocrit 39.5 % (37.5-50.1); Hemoglobin 12.8 g/dL (12.9-16.9); Immature Granulocytes % 0.4 % (0-4); Lymphocytes # 1.6 K/mcL (0.6-4.6); Lymphocytes % 20.3 %; Mean Corpuscular HGB Conc 32.4 g/dL (31.6-35.5); Mean Corpuscular Hemoglobin 31.2 pg (28.0-33.3); Mean Corpuscular Volume 96.3 fL (83.0-100.0); Mean Platelet Volume 10.6 fL (9.4-12.4); Monocytes # 0.8 K/mcL (0.0-1.3); Monocytes % 10.1 %; Neutrophils # 5.4 K/mcL (1.6-8.9); Platelet Count 251 K/mcL (140-400); Segmented Neutrophils % 67.4 %; White Blood Count 7.9 K/mcL (4.3-11.1)
[2019-04-27 06:20] LABS: % Iron Saturation 23 % (20-55); BUN/Creatinine Ratio 21 (6-26); Blood Urea Nitrogen 14 mg/dL (8-23); Calcium 8.9 mg/dL (8.6-10.3); Carbon Dioxide 25 mEq/L (23-29); Chloride 106 mEq/L (98-107); Glucose 96 mg/dL (70-105); Iron 61 mcg/dL (65-175); Osmolality,Calculated 296 (280-300); Sodium 143 mEq/L (136-145); Transferrin 187 mg/dL (203-362); eGFR For African Americans > 60 (> 60); eGFR For Non-African Americans > 60 (> 60)
[2019-04-27 06:24] LABS: Thyroid Stimulating Hormone 2.401 mcIU/mL (0.340-5.600)
[2019-04-27 06:30] LABS: Ferritin 158 ng/mL (20-250)
[2019-04-27 06:39] LABS: Folate > 22.3 ng/mL (3.0-16.0); Vitamin B12 825 pg/mL (250-1100)
[2019-04-27] MEDS: Budesonide/Formoterol 160/4.5 1 PUFF INH IH SCH ×2 (07:29→19:49)
[2019-04-27] MEDS: Furosemide 20 MG TABLET PO SCH (09:23)
[2019-04-27] MEDS: Aspirin Enteric Coated 81 MG Tablet PO SCH (09:23)
--- NOTE | 2019-04-27 16:30 | Internal Med Progress Note ---
Hospitalist Progress Note - Encounter Date of Encounter: 04/27/19 Time of Encounter: 08:00 - Subjective Interval History: Mr. Doran denies any further episodes of melena since admission. He reports feeling better this morning. GEN: Denies fever, chills or malaise HEENT: Denies headache blurriness, or dysphagia RESP: Denies SOB or cough CV: Denies chest pain or palpitations GI: Denies Nausea, vomiting, diarrhea or constipation Reviewed current in hospital medications with modifications see orders Reviewed Routine labs - Exam Vitals: Temp Pulse Resp BP Pulse Ox 97.7 F 55 16 146/69 95 04/27/19 15:47 04/27/19 15:47 04/27/19 15:47 04/27/19 15:47 04/27/19 15:47 Exam: GEN: NAD, A&O x 3, Pleasant and conversant SKIN: [place] warm acyanotic not jaundice HEART: RRR bradycardic, grade 3/6 holosystolic murmur appreciated LUNGS: CTA no wheeze or crackles, overall non labored ABDOMEN; Soft, non tender or distended, BS x 4 normactive EXT: No LE edema, Pedal pulses 1+, radial pulses 2+ PSYCH: Mood and affect is appropriate - Assessment and Plan (1) Aortic stenosis, severe Current Visit: Yes Status: Acute Assessment and Plan: Likely the underlying reason for patient's not feeling quite well. Repeat TTE 2018 reports EF 65%, asymmetric basal septal hypertrophy moderate to severe aortic stenosis. Case was briefly discussed with the on-call golf shoe spike assembler to follow tomorrow (2) GI bleed Current Visit: Yes Status: Acute Assessment and Plan: Patient reports history of prior colonoscopies, colonic polyps status post partial colectomy. Reports one episode hematochezia hemoglobin stable at 12.7 with trend H&H will hold his Eliquis and consult gastroenterology. Apart from bradycardia otherwise vitals stable, no further episodes since admission hemoglobin trended 12.7-13.5-12.8. GI consult pending appreciate the input (3) Malaise and fatigue Current Visit: Yes Status: Acute Assessment and Plan: Patient complaining of malaise and fatigue noted to be bradycardic would initiate workup with laboratory-TSH within normal limits unremarkable will obtain a 2-D echo given the significant finding of holosystolic murmur-revealed EF of 65% asymmetric basal septal hypertrophy and moderate to severe aortic stenosis (4) (HFpEF) heart failure with preserved ejection fraction Current Visit: Yes Status: Chronic Assessment and Plan: Given his complaining of fatigue will repeat 2-D echo EF of 65%, heart failure with preserved ejection fraction chronic and stable. This is not CHF exacerba tion, he is on metoprolol and Lasix and diltiazem he is quite bradycardic we will hold diltiazem (5) Atrial fibrillation Current Visit: Yes Status: Chronic Assessment and Plan: Not evidence on exam or telemetry. He is somewhat bradycardic on diltiazem and metoprolol will hold Cardizem for now, Eliquis on hold due to patient presented with GI bleed, TSH within normal limits (6) COPD (chronic obstructive pulmonary disease) Current Visit: Yes Status: Chronic Assessment and Plan: DuoNeb as needed. Patient is not in COPD exacerbation, continue home inhalers (7) Hypertension Current Visit: Yes Status: Chronic Assessment and Plan: Patient is bradycardic we will hold his diltiazem and continue metoprolol (8) KATIA (obstructive sleep apnea) Current Visit: Yes Status: Chronic Assessment and Plan: Patient denies formal diagnosis of KATIA although listed on his problem list. He stated that he was told he does not need to use CPAP which he said after he refused CPAP (9) Obesity (BMI 30-39.9) Current Visit: Yes Status: Chronic Assessment and Plan: Encourage lifestyle changes diet and exercise (10) DVT prophylaxis Current Visit: Yes Status: Acute Assessment and Plan: GI bleed presentation SCDs - Time Spent with Patient Total time spent is greater than 50% in coordination of care (as documented) at patient's floor/unit and/or counseling patient: Internal Medicine: Result - Labs CBC & Chem 7: 04/27/19 04:20 04/27/19 04:20 Labs: Short CBC 04/26/19 04/27/19 Range/Units 19:11 04:20 WBC 7.9 (4.3-11.1) K/mcL Hgb 13.5 12.8 L (12.9-16.9) g/dL Hct 41.3 39.5 (37.5-50.1) % Plt Count 251 (140-400) K/mcL Neutrophils # 5.4 (1.6-8.9) K/mcL BMP 04/27/19 04:20 Sodium 143 Potassium 4.0 Chloride 106 Carbon Dioxide 25 BUN 14 Creatinine 0.68 L Glucose 96 Calcium 8.9 - ABG Interpretation ABG results: PT/INR, D-dimer PT 15.7 Seconds (9.4-12.1) H 04/26/19 14:38 - Impressions Impressions Echocardiogram 04/27/19 15:27 Impressions: LVEF 65%. Asymmetric basal septal hypertrophy. LV diastolic dysfunction with elevated filling pressures. Normal right ventricular structure and function. Mild-moderate aortic regurgitation. Moderate-severe aortic stenosis. Mild-moderate mitral regurgitation. Mild pulmonic regurgitation. No pulmonary hypertension based on TR signal obtained. Left Ventricular Wall Motion: Rest Echo Findings All wall segments showed normal motion. Findings: Study Quality * Technically adequate exam. ECG Findings * Sinus bradycardia. Left Ventricle * LVEF 65%. * Asymmetric basal septal hypertrophy. * LV diastolic dysfunction with elevated filling pressures. Right Ventricle * Normal right ventricular structure and function. Left Atrium * Moderately dilated left atrium. Right Atrium * Normal right atrial size. Aortic Valve * Mild-moderate aortic regurgitation. * Moderately thickened aortic valve leaflets. * Moderate-severe aortic stenosis. Mitral Valve * No mitral stenosis. * Mitral valve not well visualized. * Mild mitral annular calcification * Mild-moderate mitral regurgitation. Tricuspid Valve * Tricuspid valve not well visualized. * No tricuspid regurgitation. Pulmonic Valve * Normal pulmonic valve structure. * No pulmonic stenosis. * Mild pulmonic regurgitation. Pulmonary Artery * Normal visualized portions of the main pulmonary artery. Aorta * Normally sized aortic root. Pericardium * There is no pericardial effusion present. Interatrial Septum * No evidence of PFO by color Doppler. IVC * Normal IVC dimensions and inspiratory collapse. Consult Discharge Plan - Plan Referrals: Bj Ahuja MD [Primary Care Provider] - ___ (2) GI bleed Qualifiers: GI bleed type/associated pathology: unspecified gastrointestinal hemorrhage type Qualified Code(s): K92.2 - Gastrointestinal hemorrhage, unspecified (4) (HFpEF) heart failure with preserved ejection fraction Qualifiers: Heart failure chronicity: chronic Qualified Code(s): I50.32 - Chronic diastolic (congestive) heart failure (5) Atrial fibrillation Qualifiers: Atrial fibrillation type: paroxysmal Qualified Code(s): I48.0 - Paroxysmal atrial fibrillation (6) COPD (chronic obstructive pulmonary disease) Qualifiers: COPD type: emphysema Emphysema type: unspecified Qualified Code(s): J43.9 - Emphysema, unspecified (7) Hypertension Qualifiers: Hypertension type: essential hypertension Qualified Code(s): I10 - Essential (primary) hypertension
[2019-04-27] MEDS: Multivit/Ca/Min/Fe/FA 1 TAB TABLET PO SCH (20:07)
[2019-04-28 03:08] LABS: Basophils % 0.5 %; Eosinophils # 0.1 K/mcL (0.0-0.6); Eosinophils % 1.3 %; Hematocrit 37.8 % (37.5-50.1); Hemoglobin 12.7 g/dL (12.9-16.9); Immature Granulocytes % 0.4 % (0-4); Lymphocytes # 1.8 K/mcL (0.6-4.6); Lymphocytes % 24.4 %; Mean Corpuscular HGB Conc 33.6 g/dL (31.6-35.5); Mean Corpuscular Hemoglobin 31.3 pg (28.0-33.3); Mean Corpuscular Volume 93.1 fL (83.0-100.0); Monocytes # 0.8 K/mcL (0.0-1.3); Monocytes % 10.7 %; Neutrophils # 4.7 K/mcL (1.6-8.9); Platelet Count 243 K/mcL (140-400); Red Blood Count 4.06 M/mcL (4.19-5.50); Red Cell Distribution Width 12.9 % (11.5-14.5); Segmented Neutrophils % 62.7 %; White Blood Count 7.5 K/mcL (4.3-11.1)
[2019-04-28 03:31] LABS: BUN/Creatinine Ratio 24 (6-26); Blood Urea Nitrogen 15 mg/dL (8-23); Calcium 8.8 mg/dL (8.6-10.3); Carbon Dioxide 25 mEq/L (23-29); Chloride 106 mEq/L (98-107); Glucose 100 mg/dL (70-105); Osmolality,Calculated 289 (280-300); Potassium 3.8 mEq/L (3.5-5.1); Sodium 139 mEq/L (136-145); eGFR For African Americans > 60 (> 60); eGFR For Non-African Americans > 60 (> 60)
[2019-04-28] MEDS: Budesonide/Formoterol 160/4.5 1 PUFF INH IH SCH ×2 (07:41→20:10)
[2019-04-28] MEDS: Aspirin Enteric Coated 81 MG Tablet PO SCH (09:16)
[2019-04-28] MEDS: Furosemide 20 MG TABLET PO SCH (09:16)
--- NOTE | 2019-04-28 09:52 | Cardiology Consult Note ---
Date of Encounter: 04/28/19 Time of Encounter: 10:01 Assessment and Plan (1) GI bleed Current Visit: Yes Status: Acute Prior colonoscopies, colonic polyps s/pcolectomy. One episode rectal bleeding; Hgb stable at 12.7; recommend continue to trend. Eliquis on hold r/t rectal bleeding; recommend continue when able Management per GI/primary. Qualifiers: GI bleed type/associated pathology: unspecified gastrointestinal hemorrhage type Qualified Code(s): K92.2 - Gastrointestinal hemorrhage, unspecified (2) Malaise and fatigue Current Visit: Yes Status: Acute 1. New onset fatigue x 1 week coincides with recent infection treated with antibiotics at [facility]. Admits to chills, nausea/diarrhea. (3) Bradycardia Current Visit: Yes Status: Acute Ave 24Hr telemetry reviewed; HR ave 60, low of 43 with no significant pauses. Denies syncope episodes, lightheadedness, dizziness. On Metoprolol 25mg BID decreased from 50mg BID per primary; continue to monitor telemetry. Discussed and reviewed with Dr. Martin. (4) Aortic stenosis, severe Current Visit: Yes Status: Acute Echo completed EF 65% Asymmetric basal septal hypertrophy. LV diastolic dysfunction with elevated filling pressures. Mild-moderate aortic regurgitation. Moderate-severe aortic stenosis. No pulmonary hypertension based on TR signal obtained. NSWMA. Discussed with Dr. Martin and will continue to manage as outpatient. (5) Atrial fibrillation Current Visit: Yes Status: Chronic A-fib; rate controlled on telemetry; takes eliquis at home. TSH WNLs. Eliquis on hold per primary d/t rectal bleed; recommend restart when able per primary/GI management. Discussed with Dr. Martin and If unable, continue ASA. Cardiology will address as outpatient. Qualifiers: Atrial fibrillation type: paroxysmal Qualified Code(s): I48.0 - Paroxysmal atrial fibrillation Discussion w patient/family: The assessment and plan as outlined above was discussed with the patient and/or family members who expressed understanding and agreement. All questions were answered. Thank you for involving us in the care of your patient. Please call with any questions. History of Present Illness Consult date: 04/28/19 Consult reason: bradycardia/ Chief complaint: rectal bleeding History of present illness: Mr. oDran is a 83 year-old male PMH of HTN, A-fib on Eliquis, CAD, HFpEF, COPD, KATIA, and colon polyps s/p parital colectomy. Admitted for complaints one episode mild bright red rectal bleeding. Consulted for bradycardia and managed as outpatient. Admits to recent onset fatigue, SOB with concurrent [facility] with [facility] this [facility], mild back pain reproducible with movement and breaths. Admits to nausea, diarrhea, chills, mild pedal edema. Denies chest pain, lightheadedness, palpitations, n/t, fevers, diaphoresis, vomiting. states heart rate is slower than normal. Denies other alleviating/aggravating factors. Past Med Surg Social Fam HX - Past Medical History Attestation: Yes The following information was validated with the patient. Source: patient Medical history: arthritis, atrial fibrillation, CHF, COPD, GERD, hypertension, RA, other Additional medical history: MACULAR DEGENERATION, CHRONIC BACK PAIN, LEFT TOE NEUROPATHY, GLAUCOMA, AORTIC STENOSIS, Psychiatric history: no psych history - Past Surgical History Surgical History: cataract, orthopedic, other, other Additional surgical history: large intestine sx, back sx, neck sx, CATARACT SURGERY, DENTAL SURGERY, EYE SURGERY - Social History Smoking Status: Former smoker Smokeless Tobacco Status: No Alcohol use: rarely Drug use: none - Family History Mother Adopted: No Living Status: Hx Family Cardiac Disorders: Yes (chf) Father Living Status: Hx Family Cardiac Disorders: Yes (CHF) Hx Family Neurologic Disorders: Yes (CVA) Medications and Allergies Furosemide [Lasix] 20 mg PO DAILY 11/30/18 [History] Ipratropium/Albuterol Neb [Duoneb] 3 ml IH Q6HR PRN 11/30/18 [History] Montelukast [Singulair] 10 mg PO HS 11/30/18 [History] Ipratropium/Albuterol Sulfate [Combivent Respimat 20-100 Mcg] 1 puff IH Q6H PRN 12/29/18 [History] Budesonide/Formoterol 160/4.5 [Symbicort 160/4.5] 2 puff IH BIDR 01/13/19 [History] Gluc/Ezequiel-MSM#1/C/Jorden/Rishi/Bor [Osteo Bi-Flex Caplet] 1 tab PO HS 01/13/19 [History] Multivitamin/Iron/Folic Acid [Centrum Complete Multivit Tab] 1 tab PO HS 01/13/19 [History] Omeprazole [PriLOSEC] 20 mg PO BIDAC 01/13/19 [History] Apixaban [Eliquis] 5 mg PO BID 04/26/19 [History] Metoprolol [Lopressor] 25 mg PO BID 04/26/19 [History] dilTIAZem HCl [Diltiazem 24Hr ER] 120 mg PO DAILY 04/26/19 [History] Allergy/AdvReac Type Severity Reaction Status Date / Time codeine Allergy Hallucinati Verified 11/30/18 16:42 ng All Systems Review: The remainder of the systems were reviewed and are negative - Cardiovascular Cardiovascular: as per HPI Physical Examination Vital Signs, Last 4 Hours Temp Pulse Resp BP Pulse Ox 04/28/19 07:57 98.0 F 56 16 139/64 95 04/28/19 07:41 16 94 General: Conversant, No Apparent Distress HEENT: Atraumatic, Normocephaly, Mucus Membranes Moist Neck: No JVD, Normal carotid pulses Cardiac: Reg Rate and Rhythm, Normal S1 and S2, Other (holosystolic murmur not new) Lungs: Normal Breath Sounds, No Wheeze, Rales, Rhonchi Neuro: Alert and responsive, No focal deficits noted Abdomen: Soft, Non-Tender Skin: No rashes noted on visualized skin Musculoskeletal: No Chest Wall Tenderness Extremities: No Clubbing, No Cyanosis, Normal Pulses, Other (1+ pedal edema) Results 04/28/19 02:49 04/28/19 02:49 Lab Results Laboratory Tests 04/27/19 04/27/19 04/28/19 04:20 08:45 02:49 Hgb 12.7 L Hct 37.8 BUN Creatinine Est GFR (Non-Af Amer) TSH 2.401 Stool Occult Blood Positive A 04/28/19 02:49 Hgb Hct BUN 15 Creatinine 0.62 L Est GFR (Non-Af Amer) > 60 TSH Stool Occult Blood Impressions Echocardiogram 04/27/19 15:27 Impressions: LVEF 65%. Asymmetric basal septal hypertrophy. LV diastolic dysfunction with elevated filling pressures. Normal right ventricular structure and function. Mild-moderate aortic regurgitation. Moderate-severe aortic stenosis. Mild-moderate mitral regurgitation. Mild pulmonic regurgitation. No pulmonary hypertension based on TR signal obtained. Left Ventricular Wall Motion: Rest Echo Findings All wall segments showed normal motion. Active Medications Albuterol/Ipratropium (Duoneb) 3 ml IH [id number] PRN PRN Reason: Shortness Of Breath Stop: 10/26/19 18:20 Aspirin (Aspirin Ec) 81 mg PO DAILY [facility] Stop: 10/27/19 09:01 Last Admin: 04/28/19 09:16 Dose: 81 mg Documented by: Budesonide/Formoterol Fumarate (Symbicort) 1 puff IH BIDR [facility]; Protocol Stop: 10/26/19 22:01 Last Admin: 04/28/19 07:41 Dose: 1 puff Documented by: Furosemide (Lasix) 20 mg PO DAILY [facility] Stop: 10/27/19 09:01 Last Admin: 04/28/19 09:16 Dose: 20 mg Documented by: Metoprolol Tartrate (Lopressor) 25 mg PO BID [facility] Stop: 10/27/19 21:01 Last Admin: 04/28/19 09:16 Dose: 25 mg Documented by: Montelukast Sodium (Singulair) 10 mg PO [facility] Stop: 10/26/19 21:01 Last Admin: 04/27/19 20:07 Dose: 10 mg Documented by: Multivitamins/Calcium (Thera M Plus) 1 tab PO [facility] Stop: 10/26/19 21:01 Last Admin: 04/27/19 20:07 Dose: 1 tab Documented by: Naloxone HCl (Narcan) 0.4 mg IVP Q2MPRN PRN PRN Reason: SEE COMMENTS Stop: 10/26/19 17:47 Omeprazole (Prilosec) 20 mg PO BIDAC [facility]; Protocol Stop: 10/27/19 07:31 Last Admin: 04/28/19 09:16 Dose: 20 mg Documented by: Ondansetron HCl (Zofran) 4 mg IVP Q8HR PRN PRN Reason: Nausea And Vomiting Stop: 10/26/19 17:47 - Imaging and Cardiology Echo: report reviewed Cardiac cath: report reviewed - EKG Interpretation EKG results cardiology: no diagnostic ischemia Consult Discharge Plan - Plan Referrals: Bj Ahuja MD [Primary Care Provider] - CHADS2-VASC Score - Score Age: Greater than or equal to 75 Sex: Male CHF History: Yes Hypertension history: Yes Stroke/TIA/Thromboembolism Hx: No Vascular disease history: No Diabetes history: No (on eliquis at home) Score: 4
--- NOTE | 2019-04-28 12:02 | Internal Med Progress Note ---
Hospitalist Progress Note - Encounter Date of Encounter: 04/28/19 Time of Encounter: 09:00 - Subjective Interval History: Pt seen at bedside. Denies chest pain or SOB. HAd 1 episode of bleeding per rectum yesterday morning, no other episodes. CUrrently is stable without any problems. No other overnight events, - Exam Vitals: Temp Pulse Resp BP Pulse Ox 97.6 F 54 17 144/69 94 04/28/19 11:25 04/28/19 11:25 04/28/19 11:25 04/28/19 11:25 04/28/19 11:25 Exam: General: Alert and oriented, no physical distress, able to follow commands. HEENT: No thyromegaly, no lymphadenopathy, no discharge. Eyes: No discharge. Normal conjuctiva, no icterus Respiratory: Normal vesicular breathing, no added sounds, breathing equal in both sides. CVS: Normal heart sounds, no murmurs, regular rhthm, no edema Extremities: No peripheral edema, peripheral pulses intact. Lymph nodes: No lymphadenopathy Gastrointestinal: Soft, nontender abdomen, normal abdominal sounds. No distention noted. Genitourinary: No paravertebral tenderness. Skin: No rash, ulcers or wound. Neurological: Alert and oriented. No focal deficits. Cranial nerves II-XII intact. - Assessment and Plan (1) Aortic stenosis, severe Current Visit: Yes Status: Acute Assessment and Plan: Likely the underlying reason for patient's not feeling quite well. Repeat TTE 2018 reports EF 65%, asymmetric basal septal hypertrophy moderate to severe aortic stenosis. Cardiolgoy consulted with the recommendations for the outpt follow up. (2) GI bleed Current Visit: Yes Status: Acute Assessment and Plan: Patient reports history of prior colonoscopies, colonic polyps status post part ial colectomy, almost 20 years ago Reports one episode hematochezia in the hopsital, hemoglobin stable at 12.7 Reepat CBC tomorrow Continue to hold eliquis GI consult pending appreciate the input (3) Malaise and fatigue Current Visit: Yes Status: Acute Assessment and Plan: Patient complaining of malaise and fatigue noted to be bradycardic, metoprolol dose was decreased. TSH within normal limits Cardiolgoy on ara mendez input (4) (HFpEF) heart failure with preserved ejection fraction Current Visit: Yes Status: Chronic Assessment and Plan: 2-D echo EF of 65%, heart failure with preserved ejection fraction chronic and stable. Continue lasix Continue metoprolol (5) Atrial fibrillation Current Visit: Yes Status: Chronic Assessment and Plan: Atrial fibrillation with bradycardia COntinue metoprolol at reduced dise Hold diltiazem Eliquis on hold 2/ GI bleed, We will restart once GI interventions are donw. (6) COPD (chronic obstructive pulmonary disease) Current Visit: Yes Status: Chronic Assessment and Plan: DuoNeb as needed. (7) Hypertension Current Visit: Yes Status: Chronic Assessment and Plan: BP stable COntinue metoprolol (8) Obesity (BMI 30-39.9) Current Visit: Yes Status: Chronic Assessment and Plan: Encourage lifestyle changes diet and exercise (9) DVT prophylaxis Current Visit: Yes Status: Acute Assessment and Plan: GI bleed presentation SCDs - Time Spent with Patient Total time spent is greater than 50% in coordination of care (as documented) at patient's floor/unit and/or counseling patient: Internal Medicine: Result - Labs CBC & Chem 7: 04/28/19 02:49 04/28/19 02:49 Labs: Short CBC 04/28/19 Range/Units 02:49 WBC 7.5 (4.3-11.1) K/mcL Hgb 12.7 L (12.9-16.9) g/dL Hct 37.8 (37.5-50.1) % Plt Count 243 (140-400) K/mcL Neutrophils # 4.7 (1.6-8.9) K/mcL BMP 04/28/19 02:49 Sodium 139 Potassium 3.8 Chloride 106 Carbon Dioxide 25 BUN 15 Creatinine 0.62 L Glucose 100 Calcium 8.8 - ABG Interpretation ABG results: PT/INR, D-dimer PT 15.7 Seconds (9.4-12.1) H 04/26/19 14:38 - Impressions Impressions Echocardiogram 04/27/19 15:27 Impressions: LVEF 65%. Asymmetric basal septal hypertrophy. LV diastolic dysfunction with elevated filling pressures. Normal right ventricular structure and function. Mild-moderate aortic regurgitation. Moderate-severe aortic stenosis. Mild-moderate mitral regurgitation. Mild pulmonic regurgitation. No pulmonary hypertension based on TR signal obtained. Left Ventricular Wall Motion: Rest Echo Findings All wall segments showed normal motion. Findings: Study Quality * Technically adequate exam. ECG Findings * Sinus bradycardia. Left Ventricle * LVEF 65%. * Asymmetric basal septal hypertrophy. * LV diastolic dysfunction with elevated filling pressures. Right Ventricle * Normal right ventricular structure and function. Left Atrium * Moderately dilated left atrium. Right Atrium * Normal right atrial size. Aortic Valve * Mild-moderate aortic regurgitation. * Moderately thickened aortic valve leaflets. * Moderate-severe aortic stenosis. Mitral Valve * No mitral stenosis. * Mitral valve not well visualized. * Mild mitral annular calcification * Mild-moderate mitral regurgitation. Tricuspid Valve * Tricuspid valve not well visualized. * No tricuspid regurgitation. Pulmonic Valve * Normal pulmonic valve structure. * No pulmonic stenosis. * Mild pulmonic regurgitation. Pulmonary Artery * Normal visualized portions of the main pulmonary artery. Aorta * Normally sized aortic root. Pericardium * There is no pericardial effusion present. Interatrial Septum * No evidence of PFO by color Doppler. IVC * Normal IVC dimensions and inspiratory collapse. Consult Discharge Plan - Plan Referrals: Bj Ahuja MD [Primary Care Provider] - (2) GI bleed Qualifiers: GI bleed type/associated pathology: unspecified gastrointestinal hemorrhage type Qualified Code(s): K92.2 - Gastrointestinal hemorrhage, unspecified (4) (HFpEF) heart failure with preserved ejection fraction Qualifiers: Heart failure chronicity: chronic Qualified Code(s): I50.32 - Chronic diastolic (congestive) heart failure (5) Atrial fibrillation Qualifiers: Atrial fibrillation type: paroxysmal Qualified Code(s): I48.0 - Paroxysmal atrial fibrillation (6) COPD (chronic obstructive pulmonary disease) Qualifiers: COPD type: emphysema Emphysema type: unspecified Qualified Code(s): J43.9 - Emphysema, unspecified (7) Hypertension Qualifiers: Hypertension type: essential hypertension Qualified Code(s): I10 - Essential (primary) hypertension
--- NOTE | 2019-04-28 12:25 | Gastroenterology Consult Note ---
<ChuchoJayant Whitaker - Last Filed: 04/28/19 12:22> Date of Encounter: 04/28/19 Time of Encounter: 10:45 - Assessment and plan (1) GI bleed Current Visit: Yes Status: Acute Assessment and plan: Patient with one episode of BRBPR. Hgb stable at 12.7. Continue to monitor CBC and transfuse PRBC as needed. Continue to hold Eliquis for now. Plan for colonoscopy tomorrow. Clear liquid diet today, no red or purple. NPO at midnight. If unable tolerate NuLytely please use MiraLAX prep. If not clear by 6 AM, give 2 tap water enemas. Qualifiers: GI bleed type/associated pathology: unspecified gastrointestinal hemorrhage type Qualified Code(s): K92.2 - Gastrointestinal hemorrhage, unspecified (2) Aortic stenosis, severe Current Visit: Yes Status: Acute (3) History of partial colectomy Current Visit: Yes Status: Acute - Time Spent With Patient Total time spent is greater than 50% in coordination of care (as documented) at patient's floor/unit and/or counseling patient: GI History of Present Illness - Data of Consult Patient: new to practice Consult date: 04/28/19 Requesting Physician: Yana Carvajal - Consult Narrative Reason for consult: FOBT positive History of present illness: Mr. Doran is a 83 year old male with PMHx of HTN, A-fib on Eliquis, CAD, HFpEF, COPD, KATIA, sever aortic stenosis, and colon polyps s/p parital colectomy who was admitted for complaints one episode bright red blood per rectum. He admits to occasional nausea and loose stools. He denies fever, chills, chest pain, abdominal pain, vomiting, or melena. Eliquis was held due to episode of rectal bleeding. Hgb stable at 12.7. We were consulted to evaluate his rectal bleeding. Procedures: Colonoscopy 12/26/2014 Dr. Alonzo: Diverticulosis, patent side to side ileocolonic anastomosis, internal hemorrhoid, 2 mm hyperplastic polyp, repeat 3 years. NSAIDs: None Anticoagulation: Eliquis Past Med Surg Social Fam HX - Past Medical History Medical history: arthritis, atrial fibrillation, CHF, COPD, GERD, hypertension, RA, other Additional medical history: MACULAR DEGENERATION, CHRONIC BACK PAIN, LEFT TOE NEUROPATHY, GLAUCOMA, AORTIC STENOSIS, Psychiatric history: no psych history - Past Surgical History Surgical History: cataract, orthopedic, other, other Additional surgical history: large intestine sx, back sx, neck sx, CATARACT SURGERY, DENTAL SURGERY, EYE SURGERY - Social History Smoking Status: Former smoker Smokeless Tobacco Status: No Alcohol use: rarely Drug use: none - Family History Mother Adopted: No Living Status: Hx Family Cardiac Disorders: Yes (chf) Father Living Status: Hx Family Cardiac Disorders: Yes (CHF) Hx Family Neurologic Disorders: Yes (CVA) - Gastrointestinal Gastrointestinal: Present: as per HPI - Constitutional Constitutional: as per HPI - EENT Eyes: as per HPI Ears: Present: as per HPI Nose, mouth and throat: Present: as per HPI - Cardiovascular Cardiovascular ROS: Present: as per HPI - Respiratory Respiratory IM: Present: as per HPI - Genitourinary Genitourinary: Absent: change in color, Urinary frequency - Neurological ROS Neurological GI: Present: as per HPI - Hematologic/Lymphatic Hematologic/Lymphatic pediatric: Present: as per HPI - Musculoskeletal Musculoskeletal ROS GI: Present: as per HPI - Integumentary Integumentary GI: Present: as per HPI - Psychiatric ROS Psychiatric GI: Present: as per HPI - Endocrine Endocrine IM: Present: as per HPI - Constitutional Vitals: Temp Pulse Resp BP Pulse Ox 97.6 F 54 17 144/69 94 04/28/19 11:25 04/28/19 11:25 04/28/19 11:25 04/28/19 11:25 04/28/19 11:25 General appearance: Present: cooperative, A&O X 3, no acute distress, answers questions appropriately - Head Head exam: Present: atraumatic, normocephalic - Eye Eye exam: Present: normal appearance, sclera anicteric - ENT ENT exam: Present: mucous membranes dry - Neck Neck exam general surgery: Present: normal inspection, trachea midline - Respiratory Respiratory exam: Present: CTAB. Absent: rales, rhonchi - Cardiovascular Cardiovascular exam: Present: RRR, +S1, +S2 - GI/Abdominal GI/Abdominal exam: Present: soft, no peritoneal signs. Absent: distended, firm, guarding, tenderness - Rectal Rectal exam: Present: deferred - Extremities Exam Extremities exam: Present: warm - Neurological Exam Neurological exam: Present: no focal deficits - Psychiatric Psychiatric exam: Present: normal affect, normal mood - Skin Skin exam: Present: dry, intact, normal color, warm Results - Labs CBC & Chem 7: 04/28/19 02:49 04/28/19 02:49 Labs: Last Result 04/28/19 02:49 Calcium 8.8 Entire Visit 04/28/19 02:49 Hgb 12.7 L Hct 37.8 - ABG ABG results: PT/INR, D-dimer PT 15.7 Seconds (9.4-12.1) H 04/26/19 14:38 - Impressions Impressions Echocardiogram 04/27/19 15:27 Impressions: LVEF 65%. Asymmetric basal septal hypertrophy. LV diastolic dysfunction with elevated filling pressures. Normal right ventricular structure and function. Mild-moderate aortic regurgitation. Moderate-severe aortic stenosis. Mild-moderate mitral regurgitation. Mild pulmonic regurgitation. No pulmonary hypertension based on TR signal obtained. Left Ventricular Wall Motion: Rest Echo Findings All wall segments showed normal motion. Findings: Study Quality * Technically adequate exam. ECG Findings * Sinus bradycardia. Left Ventricle * LVEF 65%. * Asymmetric basal septal hypertrophy. * LV diastolic dysfunction with elevated filling pressures. Right Ventricle * Normal right ventricular structure and function. Left Atrium * Moderately dilated left atrium. Right Atrium * Normal right atrial size. Aortic Valve * Mild-moderate aortic regurgitation. * Moderately thickened aortic valve leaflets. * Moderate-severe aortic stenosis. Mitral Valve * No mitral stenosis. * Mitral valve not well visualized. * Mild mitral annular calcification * Mild-moderate mitral regurgitation. Tricuspid Valve * Tricuspid valve not well visualized. * No tricuspid regurgitation. Pulmonic Valve * Normal pulmonic valve structure. * No pulmonic stenosis. * Mild pulmonic regurgitation. Pulmonary Artery * Normal visualized portions of the main pulmonary artery. Aorta * Normally sized aortic root. Pericardium * There is no pericardial effusion present. Interatrial Septum * No evidence of PFO by color Doppler. IVC * Normal IVC dimensions and inspiratory collapse. Consult Discharge Plan - Plan Referrals: Bj Ahuja MD [Primary Care Provider] - <Tania Mcdaniel - Last Filed: 04/28/19 17:23> Date of Encounter: 04/28/19 Time of Encounter: 13:25 - Time Spent With Patient Total time spent is greater than 50% in coordination of care (as documented) at patient's floor/unit and/or counseling patient: GI History of Present Illness - Data of Consult Requesting Physician: Yana Carvajal - Consult Narrative History of present illness: Mr. Doran is a 83 year old male - Constitutional Vitals: Temp Pulse Resp BP Pulse Ox 97.5 F L 50 14 159/71 94 04/28/19 16:01 04/28/19 16:01 04/28/19 16:01 04/28/19 16:01 04/28/19 16:01 Results - Labs CBC & Chem 7: 04/28/19 02:49 04/28/19 02:49 - ABG ABG results: PT/INR, D-dimer PT 15.7 Seconds (9.4-12.1) H 04/26/19 14:38 - Attending Attestation I have personally performed a face to face evaluation on this patient. I have reviewed and agree with the care plan. History and Exam by me shows: Patient seen denies any abdominal pain. On examination: Abdomen is soft no focal tenderness. Assessment: Patient with rectal bleeding. Recommendation colonoscopy to rule out anorectal disorder versus polyp tumor or AVM etc.
[2019-04-28] MEDS ORDERED: SODIUM CHLORIDE/NAHCO3/KCL/PEG 4,000 ML SOLN.RECON PO ONE (17:00)
--- NOTE | 2019-04-28 17:43 | Electrocardiograph Report ---
[facility] Test Date: 2019-04-26 Pat Name: Eliz Doran Department: [id number] Room: 3B16 Gender: M [employer]: : 1935 Requested By: Chan Chino Order Number: [id number] Reading MD: Bj Ahuja Measurements Intervals [place] Rate: 53 P: -23 CO: 249 QRS: 85 QRSD: 91 T: 6 QT: 483 QTc: 454 Interpretive Statements Sinus rhythm Electronically Signed On 04-28-2019 17:42:18 EDT by Bj Ahuja
[2019-04-28] MEDS: Multivit/Ca/Min/Fe/FA 1 TAB TABLET PO SCH (20:39)
[2019-04-29 02:35] LABS: Basophils % 0.2 %; Eosinophils # 0.1 K/mcL (0.0-0.6); Eosinophils % 0.7 %; Hematocrit 41.3 % (37.5-50.1); Hemoglobin 13.4 g/dL (12.9-16.9); Immature Granulocytes % 0.4 % (0-4); Lymphocytes # 1.5 K/mcL (0.6-4.6); Lymphocytes % 18.1 %; Mean Corpuscular HGB Conc 32.4 g/dL (31.6-35.5); Mean Corpuscular Hemoglobin 31.2 pg (28.0-33.3); Mean Corpuscular Volume 96.3 fL (83.0-100.0); Mean Platelet Volume 11.2 fL (9.4-12.4); Monocytes % 11.8 %; Neutrophils # 5.7 K/mcL (1.6-8.9); Platelet Count 262 K/mcL (140-400); Red Blood Count 4.29 M/mcL (4.19-5.50); Red Cell Distribution Width 13.1 % (11.5-14.5); Segmented Neutrophils % 68.8 %; White Blood Count 8.3 K/mcL (4.3-11.1)
[2019-04-29] MEDS: Budesonide/Formoterol 160/4.5 1 PUFF INH IH SCH (07:22)
[2019-04-29] MEDS ORDERED: *HR* FentaNYL (PF) 100 MCG/2 ML VIAL ONE (07:40)
[2019-04-29] MEDS ORDERED: *HR* Midazolam HCl 5 MG/5 ML VIAL IVP ONE ×2 (07:41→08:07)
[2019-04-29] MEDS ORDERED: Simethicone 40 MG/0.6 ML MLS IR ONE (08:07)
[2019-04-29] MEDS ORDERED: *HR* FentaNYL (PF) 100 MCG/2 ML VIAL IVP ONE (08:07)
--- NOTE | 2019-04-29 08:07 | Pre-Sedation Evaluation ---
Pre-sedation evaluation - Pre-sedation checklist Date of procedure: 04/29/19 Procedure: LEFT HEART CATH Recent Vitals: Last Vital Signs Temp 98.0 F 04/29/19 03:59 Pulse 59 04/29/19 03:59 Resp 14 04/29/19 07:22 BP 131/68 04/29/19 03:59 Pulse Ox 96 04/29/19 07:22 H&P (including ROS) documented in medical record: Yes Previous reaction to sedatives/anesthetics: No Dietary Status: NPO after Midnight Dentition: No loose teeth or bridges ASA Classification *see protocol: CLASS III-Severe systemic disease
[2019-04-29 08:34] VITALS: BP 133/63
[2019-04-29] MEDS: Furosemide 20 MG TABLET PO SCH (10:26)
[2019-04-29] MEDS: Aspirin Enteric Coated 81 MG Tablet PO SCH (10:26)
--- NOTE | 2019-04-29 11:44 | Discharge Summary ---
- NOTES TO OUTPATIENT PROVIDER Notes to Outpatient Provider: Came with the complaints of not feeling well. Was found to have aortic stenosis. Follow up wiht the cardiolgoy. Also mentioned to have bleeidng per rectum, colonscopy did not reveal any abnormalities which could be intervened. Elqius held for 5 days. Will need follow up on pathology results from the colonscopy. Due to relative bradycardia, diltizem has been held. Orders not resulted at time of discharge: Pending orders 04/26/19 14:38 Blood Culture [Culture,Blood] [BC] Stat 04/29/19 08:35 Surgical Pathology [PTH] Routine Date of Encounter: 04/29/19 Time of Encounter: 08:20 - Discharge Diagnosis (1) Aortic stenosis, severe Priority: Secondary Status: Acute (2) GI bleed Priority: Secondary Status: Acute Qualifiers: GI bleed type/associated pathology: unspecified gastrointestinal hemorrhage type Qualified Code(s): K92.2 - Gastrointestinal hemorrhage, unspecified (3) Malaise and fatigue Priority: Primary Status: Acute (4) (HFpEF) heart failure with preserved ejection fraction Priority: Secondary Status: Chronic Qualifiers: Heart failure chronicity: chronic Qualified Code(s): I50.32 - Chronic diastolic (congestive) heart failure (5) Atrial fibrillation Priority: Secondary Status: Chronic Qualifiers: Atrial fibrillation type: paroxysmal Qualified Code(s): I48.0 - Paroxysmal atrial fibrillation (6) COPD (chronic obstructive pulmonary disease) Priority: Secondary Status: Chronic Qualifiers: COPD type: emphysema Emphysema type: unspecified Qualified Code(s): J43.9 - Emphysema, unspecified (7) Hypertension Priority: Secondary Status: Chronic Qualifiers: Hypertension type: essential hypertension Qualified Code(s): I10 - Essential (primary) hypertension (8) Obesity (BMI 30-39.9) Priority: Secondary Status: Chronic (9) DVT prophylaxis Priority: Secondary Status: Acute Hospital course: Mr. Doran is a 83 year old male with a past medical history significant for atrial fibrillation, COPD, heart failure, aortic stenosis, presented to the hospital because of generalized malaise and fatigue, and bright red bleeding per rectum. Patient was hemodynamically stable in the emergency department. Echocardiogram was done which showed aortic stenosis. Cardiology was consulted and recommended outpatient follow-up. He was also found to be bradycardic in the hospital with a heart rate in 50s. Is currently on metoprolol and diltiazem at home. Metoprolol is continued, diltiazem been stopped. GI was consulted because of the bright red bleeding per rectum. Colonoscopy was done today which showed internal hemorrhoids, diverticulosis in the sigmoid colon, one large, non bleeding polyp in the sigmoid colon, which was removed and resected. The area was treated with argon plasma coagulation Patient tolerated the procedure well. Remained hemodynamically stable following the pr ocedure. Discussed with the patient and the family that he can be discharged to home. Patient is agreeable to the plan. Advised the patient to hold Eliquis for 5 days as per GI recommendations. Until then he will be bridged with aspirin for the AC. Pt and the voiced understanding. Pt is being discharged in stable condition. - Time Spent with Patient Total time spent providing and/or coordinating discharge services: 31 minutes - Discharge Medications Prescriptions: New Aspirin Enteric Coated [Aspirin EC] 81 mg PO DAILY 5 Days tablet. Continued Ipratropium/Albuterol Sulfate [Combivent Respimat 20-100 Mcg] 1 puff IH Q6H PRN PRN Reason: Shortness Of Breath Multivitamin/Iron/Folic Acid [Centrum Complete Multivit Tab] 1 tab PO HS Gluc/Ezequiel-MSM#1/C/Jorden/Rishi/Bor [Osteo Bi-Flex Caplet] 1 tab PO HS Omeprazole [PriLOSEC] 20 mg PO BIDAC Budesonide/Formoterol 160/4.5 [Symbicort 160/4.5] 2 puff IH BIDR Metoprolol [Lopressor] 25 mg PO BID Apixaban [Eliquis] 5 mg PO BID Ipratropium/Albuterol Neb [Duoneb] 3 ml IH Q6HR PRN PRN Reason: Shortness Of Breath Furosemide [Lasix] 20 mg PO DAILY Montelukast [Singulair] 10 mg PO HS Discontinued dilTIAZem HCl [Diltiazem 24Hr ER] 120 mg PO DAILY Home Medications: Furosemide [Lasix] 20 mg PO DAILY 11/30/18 [History] Ipratropium/Albuterol Neb [Duoneb] 3 ml IH Q6HR PRN 11/30/18 [History] Montelukast [Singulair] 10 mg PO HS 11/30/18 [History] Ipratropium/Albuterol Sulfate [Combivent Respimat 20-100 Mcg] 1 puff IH Q6H PRN 12/29/18 [History] Budesonide/Formoterol 160/4.5 [Symbicort 160/4.5] 2 puff IH BIDR 01/13/19 [History] Gluc/Ezequiel-MSM#1/C/Jorden/Rishi/Bor [Osteo Bi-Flex Caplet] 1 tab PO HS 01/13/19 [History] Multivitamin/Iron/Folic Acid [Centrum Complete Multivit Tab] 1 tab PO HS 01/13/19 [History] Omeprazole [PriLOSEC] 20 mg PO BIDAC 01/13/19 [History] Apixaban [Eliquis] 5 mg PO BID 04/26/19 [History] Metoprolol [Lopressor] 25 mg PO BID 04/26/19 [History] Aspirin Enteric Coated [Aspirin EC] 81 mg PO DAILY 5 Days tablet. 04/29/19 [Rx] Allergies/Adverse Reactions: Allergy/AdvReac Type Severity Reaction Status Date / Time codeine Allergy Hallucinati Verified 11/30/18 16:42 ng Date of admission: 04/26/19 17:14 Primary care physician: Bj Ahuja MD Consults: 04/27/19 08:40 Consult to Cardiology [CONS] Routine Comment: Consulting Provider: Cardiology [place] Reason for Consult: prior echo from 12/27 not 04/09/19 revealed moderate aortic stenosis pt is adan , symptomatic with significant murmur Call Completed: No 04/27/19 16:58 Consult to Gastroenterology [CONS] Routine Consulting Provider: Gastroenter[facility] [place] Reason for Consult: positive occult stool Call Completed: Yes - Constitutional Vitals: Temp Pulse Resp BP Pulse Ox 98.3 F 58 16 133/63 98 04/29/19 08:16 04/29/19 08:26 04/29/19 08:26 04/29/19 08:26 04/29/19 08:26 Exam: General: Alert and oriented, no physical distress, able to follow commands. HEENT: No thyromegaly, no lymphadenopathy, no discharge. Eyes: No discharge. Normal conjuctiva, no icterus Respiratory: Normal vesicular breathing, no added sounds, breathing equal in both sides. CVS: Normal heart sounds, no murmurs, regular rhthm, no edema Extremities: No peripheral edema, peripheral pulses intact. Lymph nodes: No lymphadenopathy Gastrointestinal: Soft, nontender abdomen, normal abdominal sounds. No distention noted. Genitourinary: No paravertebral tenderness. Skin: No rash, ulcers or wound. Neurological: Alert and oriented. No focal deficits. Cranial nerves II-XII intact. - Patient Status Disposition: Home, Self-Care Condition: Good Functional capacity at discharge: independent ambulation Overall status at discharge: patient is progressing back to baseline - Discharge Instructions Follow Up With: Bj Ahuja MD [Primary Care Provider] - Zuhair Martin DO [Partnered Physician] - Additional Instructions: DO NOT TAKE ELIQUIS UNTIL 05/05/19 - Diet and Activity Activity: increase activity as tolerated Diet: advance to your usual diet
--- NOTE | 2019-04-29 11:52 | Anesthesia Evaluation PreOp ---
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 History: Denies Any Significant HX Other Medical History: GERD, Other (macular degeneration, RA) Anesthesia History: No Prior Anesthetic Complications, Past Anesthesia (lumbar and cervical fusions, colon,) Alcohol Use: rarely Drug use: none Medications and Allergies Furosemide [Lasix] 20 mg PO DAILY 11/30/18 [History] Ipratropium/Albuterol Neb [Duoneb] 3 ml IH Q6HR PRN 11/30/18 [History] Montelukast [Singulair] 10 mg PO HS 11/30/18 [History] Ipratropium/Albuterol Sulfate [Combivent Respimat 20-100 Mcg] 1 puff IH Q6H PRN 12/29/18 [History] Budesonide/Formoterol 160/4.5 [Symbicort 160/4.5] 2 puff IH BIDR 01/13/19 [History] Gluc/Ezequiel-MSM#1/C/Jorden/Rishi/Bor [Osteo Bi-Flex Caplet] 1 tab PO HS 01/13/19 [History] Multivitamin/Iron/Folic Acid [Centrum Complete Multivit Tab] 1 tab PO HS 0 01/13/19 [History] Omeprazole [PriLOSEC] 20 mg PO BIDAC 01/13/19 [History] Apixaban [Eliquis] 5 mg PO BID 04/26/19 [History] Metoprolol [Lopressor] 25 mg PO BID 04/26/19 [History] Aspirin Enteric Coated [Aspirin EC] 81 mg PO DAILY 5 Days tablet. 04/29/19 [Rx] Allergy/AdvReac Type Severity Reaction Status Date / Time codeine Allergy Hallucinati Verified 11/30/18 16:42 ng - Meds/Allergy Pre-op Review Medications Reviewed: Yes Allergies Reviewed: Yes Beta Blockers on Current Med List: Yes (lopressor) If Beta Blockers taken, Date/Time (Last Dose taken): today 1026 Anesthesia Results - Labs 04/29/19 00:28 04/28/19 02:49 - Imaging EKG: report reviewed (Sinus rhythm) Additional studies: echo: Impressions: LVEF 65%. Asymmetric basal septal hypertrophy. LV diastolic dysfunction with elevated filling pressures. Normal right ventricular structure and function. Mild-moderate aortic regurgitation. Moderate-severe aortic stenosis. Mild-moderate mitral regurgitation. Mild pulmonic regurgitation. No pulmonary hypertension based on TR signal obtained. Repeat TTE obtained. LVEF normal. Moderate to severe described. Review of reports, Doppler values are consistent with moderate . stress test: Impression: Perfusion imaging was negative for ischemia or infarct. Pharmacologic stress ECG is negative for ischemia at level of heart rate achieved. Gated EF > 70%. Anesthesia Exam Selected Entries 04/29/19 08:16 04/29/19 08:26 Temperature 98.3 F Pulse Rate 58 Respiratory Rate 16 Blood Pressure 133/63 O2 Sat by Pulse Oximetry 98 Oxygen Flow Rate (LPM) 4 Weight: 101kg NPO (# of Hours): 8 - Cardiac Rhythm: Regular Murmur: None - Pulmonary Breath Sounds: bilateral Clear Respiratory Effort: Symmetrical Anesthesia Assess/Plan ASA Score: 3 Level of consciousness: Cooperative, Oriented Anesthetic Plan: MAC Monitoring Plan: Standard Monitors Recovery Plan: Other
== END 2019-04-29 12:49 | disposition home or self-care (01) ==
LOC: 3BNU 13:29 → EMEROOARM 13:29 → SUATTDRO 17:14 → 3BNU 18:30
PROVIDERS: ADMIT Pharmacist; ATTEND Internal Medicine

== ENCOUNTER 2019-06-16 16:06 | Observation (INO) ==
[2019-06-16 17:15] LABS: White Blood Count 11.4 K/mcL (4.3-11.1)
[2019-06-16 17:16] LABS: Basophils % 0.2 %; Eosinophils % 0.2 %; Immature Granulocytes % 0.4 % (0-4); Lymphocytes # 1.9 K/mcL (0.6-4.6); Lymphocytes % 16.3 %; Mean Corpuscular HGB Conc 32.4 g/dL (31.6-35.5); Mean Corpuscular Hemoglobin 30.9 pg (28.0-33.3); Mean Corpuscular Volume 95.4 fL (83.0-100.0); Mean Platelet Volume 10.9 fL (9.4-12.4); Monocytes # 0.8 K/mcL (0.0-1.3); Monocytes % 7.2 %; Neutrophils # 8.6 K/mcL (1.6-8.9); Platelet Count 219 K/mcL (140-400); Red Blood Count 3.88 M/mcL (4.19-5.50); Red Cell Distribution Width 14.6 % (11.5-14.5); Segmented Neutrophils % 75.7 %
[2019-06-16 17:22] LABS: INR 1.2; Prothrombin Time 13.7 Seconds (9.4-12.1)
[2019-06-16 17:25] LABS: Activated Partial Thrombo Time 27.3 Seconds (26.0-36.0)
[2019-06-16 17:43] LABS: BUN/Creatinine Ratio 32 (6-26); Blood Urea Nitrogen 24 mg/dL (8-23); Calcium 8.7 mg/dL (8.6-10.3); Carbon Dioxide 28 mEq/L (23-29); Chloride 103 mEq/L (98-107); Glucose 128 mg/dL (70-105); Osmolality,Calculated 296 (280-300); Sodium 140 mEq/L (136-145); Troponin I 0.03 ng/mL (< 0.04); eGFR For African Americans > 60 (> 60); eGFR For Non-African Americans > 60 (> 60)
[2019-06-16] MEDS ORDERED: 0.9 % Sodium Chloride 1,000 ML IVC SCH (19:45)
[2019-06-16] MEDS ORDERED: Naloxone 0.4 MG/ML INJ IVP PRN (21:00)
[2019-06-16] MEDS ORDERED: Ipratropium/Albuterol Neb 3 ML IH PRN (21:02)
[2019-06-17] MEDS: Budesonide/Formoterol 160/4.5 1 PUFF INH IH SCH ×3 (00:32→20:09)
[2019-06-17] MEDS ORDERED: Acetaminophen 325 MG TABLET PO PRN (01:38)
[2019-06-17 04:21] LABS: Basophils % 0.2 %; Eosinophils % 0.2 %; Hematocrit 39.4 % (37.5-50.1); Hemoglobin 12.9 g/dL (12.9-16.9); Immature Granulocytes % 0.5 % (0-4); Lymphocytes # 1.7 K/mcL (0.6-4.6); Lymphocytes % 14.2 %; Mean Corpuscular HGB Conc 32.7 g/dL (31.6-35.5); Mean Corpuscular Hemoglobin 30.8 pg (28.0-33.3); Monocytes # 0.9 K/mcL (0.0-1.3); Monocytes % 7.5 %; Neutrophils # 9.1 K/mcL (1.6-8.9); Platelet Count 229 K/mcL (140-400); Red Blood Count 4.19 M/mcL (4.19-5.50); Red Cell Distribution Width 14.6 % (11.5-14.5); Segmented Neutrophils % 77.4 %; White Blood Count 11.8 K/mcL (4.3-11.1)
[2019-06-17 04:47] LABS: Alanine Aminotransferase 12 Units/L (7-52); Albumin 3.5 g/dL (3.5-5.7); Albumin/Globulin Ratio 1.3 (1.1-2.2); Alkaline Phosphatase 90 Units/L (34-104); Aspartate Amino Transferase 14 Units/L (13-39); BUN/Creatinine Ratio 35 (6-26); Bilirubin,Total 0.8 mg/dL (0.3-1.0); Blood Urea Nitrogen 18 mg/dL (8-23); Calcium 8.6 mg/dL (8.6-10.3); Carbon Dioxide 25 mEq/L (23-29); Chloride 102 mEq/L (98-107); Globulin 2.6 g/dL (2.4-3.5); Glucose 83 mg/dL (70-105); Magnesium 1.8 mg/dL (1.6-2.6); Osmolality,Calculated 285 (280-300); Potassium 3.8 mEq/L (3.5-5.1); Sodium 137 mEq/L (136-145); Total Protein 6.1 g/dL (6.4-8.9); Troponin I 0.05 ng/mL (< 0.04); eGFR For African Americans > 60 (> 60); eGFR For Non-African Americans > 60 (> 60)
[2019-06-17] MEDS: Apixaban 5 MG TABLET PO SCH ×2 (09:47→19:59)
[2019-06-17] MEDS ORDERED: NON-FORMULARY MEDICATION 1 EACH EACH (Ipratropium/Albuterol Sulfate [Combivent Respimat 20 IH PRN (11:33)
[2019-06-17] MEDS: traMADol 50 MG TABLET PO PRN ×2 (12:16→19:58)
[2019-06-17] MEDS ORDERED: Multivit/Ca/Min/Fe/FA 1 TAB TABLET PO SCH (21:00)
[2019-06-17] MEDS ORDERED: NON-FORMULARY MEDICATION 1 EACH EACH (Gluc/Chon-Msm#1/C/Mang/Bos/Bor [Osteo Bi-Flex Caplet PO SCH (21:00)
[2019-06-18] MEDS: traMADol 50 MG TABLET PO PRN (01:52)
[2019-06-18 05:50] LABS: Basophils % 0.2 %; Eosinophils % 0.4 %; Hematocrit 38.7 % (37.5-50.1); Hemoglobin 13.6 g/dL (12.9-16.9); Immature Granulocytes % 0.6 % (0-4); Lymphocytes # 1.5 K/mcL (0.6-4.6); Lymphocytes % 13.5 %; Mean Corpuscular HGB Conc 35.1 g/dL (31.6-35.5); Mean Corpuscular Volume 88.2 fL (83.0-100.0); Mean Platelet Volume 10.6 fL (9.4-12.4); Monocytes # 1.1 K/mcL (0.0-1.3); Neutrophils # 8.2 K/mcL (1.6-8.9); Platelet Count 238 K/mcL (140-400); Red Blood Count 4.39 M/mcL (4.19-5.50); Red Cell Distribution Width 14.4 % (11.5-14.5); Segmented Neutrophils % 75.3 %; White Blood Count 10.9 K/mcL (4.3-11.1)
[2019-06-18 06:14] LABS: BUN/Creatinine Ratio 29 (6-26); Blood Urea Nitrogen 15 mg/dL (8-23); Calcium 8.7 mg/dL (8.6-10.3); Carbon Dioxide 24 mEq/L (23-29); Chloride 99 mEq/L (98-107); Glucose 114 mg/dL (70-105); Osmolality,Calculated 280 (280-300); Potassium 3.8 mEq/L (3.5-5.1); Sodium 134 mEq/L (136-145); eGFR For African Americans > 60 (> 60); eGFR For Non-African Americans > 60 (> 60)
[2019-06-18 07:50] VITALS: BP 130/77
[2019-06-18] MEDS: Budesonide/Formoterol 160/4.5 1 PUFF INH IH SCH (08:04)
[2019-06-18] MEDS: Apixaban 5 MG TABLET PO SCH (08:55)
[2019-06-18] MEDS ORDERED: Furosemide 20 MG TABLET PO SCH (09:00)
[2019-06-18] MEDS ORDERED: FLU Vac QV 19-20 (6Month+)/PF 0.5 ML SYRINGE IM ONE (10:00)
== END 2019-06-18 10:46 | disposition home or self-care (01) ==
LOC: EMEROOARM 16:06 → 2ANU 16:06 → SUATTDRO 19:59 → 2ANU 20:18
PROVIDERS: ADMIT Internal Medicine; ATTEND Family Medicine

== ENCOUNTER 2019-07-15 07:30 | Inpatient (IN) ==
[2019-07-15 08:29] LABS: Basophils % 0.2 %; Eosinophils % 0.1 %; Hematocrit 35.8 % (37.5-50.1); Hemoglobin 11.6 g/dL (12.9-16.9); Immature Granulocytes % 0.6 % (0-4); Lymphocytes # 0.9 K/mcL (0.6-4.6); Lymphocytes % 5.5 %; Mean Corpuscular HGB Conc 32.4 g/dL (31.6-35.5); Mean Corpuscular Hemoglobin 30.3 pg (28.0-33.3); Mean Corpuscular Volume 93.5 fL (83.0-100.0); Mean Platelet Volume 10.2 fL (9.4-12.4); Monocytes # 1.3 K/mcL (0.0-1.3); Monocytes % 8.6 %; Neutrophils # 13.2 K/mcL (1.6-8.9); Platelet Count 277 K/mcL (140-400); Red Blood Count 3.83 M/mcL (4.19-5.50); White Blood Count 15.5 K/mcL (4.3-11.1)
[2019-07-15 08:49] LABS: BUN/Creatinine Ratio 23 (6-26); Blood Urea Nitrogen 13 mg/dL (8-23); Calcium 8.9 mg/dL (8.6-10.3); Carbon Dioxide 25 mEq/L (23-29); Chloride 100 mEq/L (98-107); Glucose 118 mg/dL (70-105); Magnesium 1.7 mg/dL (1.6-2.6); Osmolality,Calculated 279 (280-300); Potassium 3.8 mEq/L (3.5-5.1); Sodium 134 mEq/L (136-145); eGFR For African Americans > 60 (> 60); eGFR For Non-African Americans > 60 (> 60)
[2019-07-15 08:57] LABS: Troponin I 0.29 ng/mL (< 0.04)
[2019-07-15 09:11] LABS: Bilirubin,Urine Negative (Negative); Blood,Urine Trace-intact (Negative); Clarity,Urine Clear (Clear); Color,Urine Yellow (Yellow); Glucose,Urine (UA) Normal (Normal); Ketones,Urine Negative (Negative); Leukocyte Esterase,Urine Negative (Negative); Nitrite,Urine Negative (Negative); PH,Urine 6.5 pH Units (5.0-8.0); Protein,Urine Trace mg/dL (Neg-Trace); Specific Gravity,Urine 1.015 (1.010-1.025); Urobilinogen,Urine Normal (Normal)
[2019-07-15 09:15] LABS: Bacteria,Urine None Seen per hpf (None-Few); Hyaline Casts,Urine None Seen per lpf (None-Few); Squamous Epithelial Cell,Urine Moderate per lpf (None-Few); WBC,Urine 0-3 per hpf (0-3)
[2019-07-15] MEDS ORDERED: 0.9 % Sodium Chloride 1,000 ML IVC ONE (09:25)
[2019-07-15] MEDS ORDERED: 0.9 % Sodium Chloride 1,000 ML ONE (09:26)
[2019-07-15] MEDS ORDERED: Gadolinium Contrast Agent (WT Based) IV PRN ×2 (09:43→10:02)
[2019-07-15] MEDS ORDERED: cefTRIAXone 2,000 MG in Water for inj. (sterile) 20 ML IVP ONE (10:05)
[2019-07-15] MEDS ORDERED: *HR* FentaNYL (PF) 100 MCG/2 ML VIAL IVP ONE (10:28)
[2019-07-15] MEDS ORDERED: *HR* LORazepam 2 MG/ML VIAL IVP ONE ×2 (12:45→18:45)
[2019-07-15] MEDS ORDERED: Ringers Solution, Lactated 1,000 ML IVC ONE (12:45)
[2019-07-15] MEDS ORDERED: Ondansetron ODT 4 MG TAB.RAPDIS SL PRN (12:46)
[2019-07-15] MEDS ORDERED: Ondansetron 4 MG/2 ML VIAL IVP PRN (12:46)
[2019-07-15] MEDS ORDERED: Dexamethasone 10 MG/ML VIAL IVP SCH (13:46)
[2019-07-15] MEDS ORDERED: Cefepime HCl 2,000 MG in Water for inj. (sterile) 20 ML IVP SCH (16:00)
[2019-07-15] MEDS: *HR* OxyCODONE/APAP 5/325 TABLET PO PRN (16:56)
[2019-07-15] MEDS: Acetaminophen 325 MG TABLET PO PRN (16:56)
[2019-07-15] MEDS: Dexamethasone 10 MG/ML VIAL IVP SCH ×2 (16:56→23:55)
[2019-07-15] MEDS: Ampicillin 2 GM in 0.9 % Sodium Chloride Mini Bag 100 ML IVPB SCH ×2 (16:57→22:51)
[2019-07-15] MEDS: Acyclovir 750 MG in D5% in Water 250 ML IVPB SCH (16:58)
[2019-07-15] MEDS ORDERED: Ampicillin 2 GM in 0.9 % Sodium Chloride Mini Bag 100 ML IVPB SCH (18:00)
[2019-07-15] MEDS: Cefepime HCl 2,000 MG in 0.9 % Sodium Chloride Mini Bag 100 ML IVPB SCH (18:33)
[2019-07-15] MEDS ORDERED: *HR* OxyCODONE Immed Rel 5 MG TABLET PO ONE (20:35)
[2019-07-15 22:39] LABS: Acinetobacter baumannii by PCR Not Detected (Not Detect); Candida albicans by PCR Not Detected (Not Detect); Candida glabrata by PCR Not Detected (Not Detect); Candida krusei by PCR Not Detected (Not Detect); Candida parapsilosis by PCR Not Detected (Not Detect); Candida tropicalis by PCR Not Detected (Not Detect); Enterobacter cloacae Cmplx PCR Not Detected (Not Detect); Enterobacteriaceae by PCR Not Detected (Not Detect); Enterococcus by PCR Not Detected (Not Detect); Escherichia coli by PCR Not Detected (Not Detect); Klebsiella oxytoca by PCR Not Detected (Not Detect); Klebsiella pneumoniae by PCR Not Detected (Not Detect); Proteus by PCR Not Detected (Not Detect); Pseudomonas aeruginosa by PCR Not Detected (Not Detect); Serratia marcescens by PCR Not Detected (Not Detect); Staphylococcus aureus by PCR Not Detected (Not Detect); Staphylococcus by PCR Not Detected (Not Detect); Streptococcus agalactiae(B)PCR Not Detected (Not Detect); Streptococcus by PCR DETECTED (Not Detect); Streptococcus pneumoniae PCR Not Detected (Not Detect); Streptococcus pyogenes (A) PCR Not Detected (Not Detect)
[2019-07-16] MEDS: Acyclovir 750 MG in D5% in Water 250 ML IVPB SCH (00:01)
[2019-07-16] MEDS ORDERED: 0.9 % Sodium Chloride Mini Bag 100 ML ONE (00:22)
[2019-07-16] MEDS: Cefepime HCl 2,000 MG in 0.9 % Sodium Chloride Mini Bag 100 ML IVPB SCH ×2 (00:26→09:09)
[2019-07-16] MEDS: Ampicillin 2 GM in 0.9 % Sodium Chloride Mini Bag 100 ML IVPB SCH ×4 (01:15→09:09)
[2019-07-16] MEDS: Dexamethasone 10 MG/ML VIAL IVP SCH ×4 (06:27→23:51)
[2019-07-16 07:47] LABS: Basophils % 0.1 %; Immature Granulocytes % 0.7 % (0-4); Lymphocytes # 0.7 K/mcL (0.6-4.6); Lymphocytes % 4.7 %; Mean Corpuscular HGB Conc 33.3 g/dL (31.6-35.5); Mean Corpuscular Hemoglobin 29.4 pg (28.0-33.3); Mean Corpuscular Volume 88.2 fL (83.0-100.0); Mean Platelet Volume 10.7 fL (9.4-12.4); Monocytes # 0.2 K/mcL (0.0-1.3); Monocytes % 1.4 %; Neutrophils # 13.8 K/mcL (1.6-8.9); Platelet Count 272 K/mcL (140-400); Red Blood Count 4.08 M/mcL (4.19-5.50); Red Cell Distribution Width 13.5 % (11.5-14.5); Segmented Neutrophils % 93.1 %; White Blood Count 14.8 K/mcL (4.3-11.1)
[2019-07-16 08:03] LABS: INR 1.4; Prothrombin Time 15.5 Seconds (9.4-12.1)
[2019-07-16 08:05] LABS: BUN/Creatinine Ratio 23 (6-26); Blood Urea Nitrogen 9 mg/dL (8-23); Calcium 9.2 mg/dL (8.6-10.3); Carbon Dioxide 23 mEq/L (23-29); Chloride 101 mEq/L (98-107); Potassium 3.3 mEq/L (3.5-5.1); Sodium 137 mEq/L (136-145); eGFR For African Americans > 60 (> 60); eGFR For Non-African Americans > 60 (> 60)
[2019-07-16 08:50] LABS: Glucose 172 mg/dL (70-105); Osmolality,Calculated 287 (280-300)
[2019-07-16] MEDS ORDERED: Dextrose Gel 15 GM/37.5 ML TUBE PO PRN ×2 (10:47→10:55)
[2019-07-16] MEDS ORDERED: *HR* Dextrose 50 % in Water (Syg) 50 ML SYRINGE IVP PRN (10:55)
[2019-07-16] MEDS ORDERED: D5% in Water 1,000 ML IVC PRN (10:55)
[2019-07-16] MEDS: Insulin LISPRO 300 UNITS/3 ML VIAL SQ SCH ×3 (12:42→19:34)
[2019-07-16] MEDS: *HR* OxyCODONE/APAP 5/325 TABLET PO PRN (17:05)
[2019-07-16] MEDS: cefTRIAXone 2,000 MG in 0.9 % Sodium Chloride Mini Bag 100 ML IVPB SCH (17:05)
[2019-07-17] MEDS: Dexamethasone 10 MG/ML VIAL IVP SCH ×3 (06:03→16:43)
[2019-07-17] MEDS: cefTRIAXone 2,000 MG in 0.9 % Sodium Chloride Mini Bag 100 ML IVPB SCH ×2 (06:06→16:43)
[2019-07-17] MEDS: Insulin LISPRO 300 UNITS/3 ML VIAL SQ SCH ×4 (08:29→22:43)
[2019-07-17] MEDS: *HR* OxyCODONE/APAP 5/325 TABLET PO PRN ×2 (11:14→22:50)
[2019-07-17 11:17] LABS: Red Blood Cell,CSF < 0.002 M/mcL
[2019-07-17 11:36] LABS: Glucose,CSF 101 mg/dL (40-70); Total Protein,CSF 105 mg/dL (15-45)
[2019-07-17 12:01] LABS: Appearance,CSF Clear (Clear); Basophils,CSF 0 %; Eosinophils,CSF 0 %
[2019-07-17] MEDS: Apixaban 5 MG TABLET PO SCH (22:44)
[2019-07-18] MEDS: Dexamethasone 10 MG/ML VIAL IVP SCH ×2 (00:32→05:47)
[2019-07-18 05:04] LABS: Basophils % 0.1 %; Mean Corpuscular HGB Conc 33.3 g/dL (31.6-35.5); Red Cell Distribution Width 13.8 % (11.5-14.5)
[2019-07-18 05:06] LABS: Hematocrit 33.3 % (37.5-50.1); Hemoglobin 11.1 g/dL (12.9-16.9); Immature Granulocytes % 1.3 % (0-4); Lymphocytes # 0.8 K/mcL (0.6-4.6); Lymphocytes % 2.7 %; Mean Corpuscular Hemoglobin 30.3 pg (28.0-33.3); Mean Platelet Volume 9.9 fL (9.4-12.4); Monocytes # 0.6 K/mcL (0.0-1.3); Monocytes % 1.9 %; Neutrophils # 27.3 K/mcL (1.6-8.9); Platelet Count 357 K/mcL (140-400); Red Blood Count 3.66 M/mcL (4.19-5.50)
[2019-07-18 05:26] LABS: BUN/Creatinine Ratio 52 (6-26); Blood Urea Nitrogen 25 mg/dL (8-23); Calcium 9.2 mg/dL (8.6-10.3); Carbon Dioxide 27 mEq/L (23-29); Chloride 105 mEq/L (98-107); Glucose 157 mg/dL (70-105); Osmolality,Calculated 298 (280-300); Potassium 4.2 mEq/L (3.5-5.1); Sodium 140 mEq/L (136-145); eGFR For African Americans > 60 (> 60); eGFR For Non-African Americans > 60 (> 60)
[2019-07-18 05:31] LABS: Platelet Estimate Normal (Normal)
[2019-07-18 05:32] LABS: Toxic Granulation Present (Not Present)
[2019-07-18] MEDS: cefTRIAXone 2,000 MG in 0.9 % Sodium Chloride Mini Bag 100 ML IVPB SCH (05:47)
[2019-07-18] MEDS: Insulin LISPRO 300 UNITS/3 ML VIAL SQ SCH ×4 (09:07→21:14)
[2019-07-18] MEDS: Apixaban 5 MG TABLET PO SCH ×2 (09:08→21:18)
[2019-07-18] MEDS ORDERED: Ringers Solution, Lactated 1,000 ML IVC ONE ×2 (09:08→17:04)
[2019-07-18 10:20] LABS: Albumin 3.1 g/dL (3.5-5.7); Bilirubin,Direct 0.1 mg/dL (0.0-0.2); Bilirubin,Indirect 0.3 mg/dL (0.0-1.0); Bilirubin,Total 0.4 mg/dL (0.3-1.0); Total Protein 6.1 g/dL (6.4-8.9)
[2019-07-18] MEDS: Cefepime HCl 2,000 MG in Water for inj. (sterile) 20 ML IVP SCH ×3 (11:31→23:50)
[2019-07-18] MEDS ORDERED: Isovue-370 500 ML BOTTLE IVP ONE (16:35)
[2019-07-18] MEDS: Clindamycin 900 MG/50 ML 900 MG/50 ML IV.SOLN IVPB SCH ×2 (17:12→23:49)
[2019-07-18] MEDS ORDERED: Apixaban 5 MG TABLET PO SCH (21:00)
[2019-07-19 06:06] LABS: Mean Platelet Volume 9.9 fL (9.4-12.4)
[2019-07-19 06:08] LABS: Hematocrit 36.1 % (37.5-50.1); Hemoglobin 11.9 g/dL (12.9-16.9); Mean Corpuscular Hemoglobin 29.9 pg (28.0-33.3); Mean Corpuscular Volume 90.7 fL (83.0-100.0); Platelet Count 402 K/mcL (140-400); Red Blood Count 3.98 M/mcL (4.19-5.50); Red Cell Distribution Width 13.8 % (11.5-14.5); White Blood Count 27.2 K/mcL (4.3-11.1)
[2019-07-19 06:25] LABS: BUN/Creatinine Ratio 46 (6-26); Blood Urea Nitrogen 23 mg/dL (8-23); Calcium 9.2 mg/dL (8.6-10.3); Carbon Dioxide 28 mEq/L (23-29); Chloride 101 mEq/L (98-107); Glucose 114 mg/dL (70-105); Osmolality,Calculated 297 (280-300); Sodium 141 mEq/L (136-145); eGFR For African Americans > 60 (> 60); eGFR For Non-African Americans > 60 (> 60)
[2019-07-19] MEDS ORDERED: Cefepime HCl 2,000 MG in 0.9 % Sodium Chloride Mini Bag 100 ML IVPB SCH (08:00)
[2019-07-19] MEDS ORDERED: Clindamycin 600 MG/50 ML 600 MG/50 ML IV.SOLN IVPB SCH (08:24)
[2019-07-19] MEDS: Apixaban 5 MG TABLET PO SCH (08:40)
[2019-07-19] MEDS: Insulin LISPRO 300 UNITS/3 ML VIAL SQ SCH ×4 (08:40→21:20)
[2019-07-19] MEDS: *HR* OxyCODONE/APAP 5/325 TABLET PO PRN ×2 (08:42→21:23)
[2019-07-19] MEDS: Acetaminophen 325 MG TABLET PO PRN (13:17)
[2019-07-19] MEDS ORDERED: cefTRIAXone 2,000 MG in 0.9 % Sodium Chloride Mini Bag 100 ML IVPB SCH (15:00)
[2019-07-19] MEDS: cefTRIAXone 2,000 MG in 0.9 % Sodium Chloride Mini Bag 100 ML IVPB SCH (16:44)
[2019-07-19] MEDS ORDERED: SODIUM CHLORIDE/NAHCO3/KCL/PEG 4,000 ML SOLN.RECON PO ONE (17:00)
[2019-07-19 18:14] LABS: C-Reactive Protein 32 mg/L (Less than 10)
[2019-07-20] MEDS: *HR* OxyCODONE/APAP 5/325 TABLET PO PRN (06:47)
[2019-07-20 07:55] LABS: Hematocrit 38.1 % (37.5-50.1); Mean Corpuscular HGB Conc 34.1 g/dL (31.6-35.5); Mean Corpuscular Hemoglobin 29.7 pg (28.0-33.3); Mean Corpuscular Volume 87.2 fL (83.0-100.0); Mean Platelet Volume 9.7 fL (9.4-12.4); Platelet Count 378 K/mcL (140-400); Red Blood Count 4.37 M/mcL (4.19-5.50); Red Cell Distribution Width 14.1 % (11.5-14.5); White Blood Count 15.8 K/mcL (4.3-11.1)
[2019-07-20 08:17] LABS: BUN/Creatinine Ratio 35 (6-26); Blood Urea Nitrogen 17 mg/dL (8-23); Calcium 8.5 mg/dL (8.6-10.3); Carbon Dioxide 27 mEq/L (23-29); Chloride 101 mEq/L (98-107); Glucose 91 mg/dL (70-105); Osmolality,Calculated 289 (280-300); Potassium 3.9 mEq/L (3.5-5.1); Sodium 139 mEq/L (136-145); eGFR For African Americans > 60 (> 60); eGFR For Non-African Americans > 60 (> 60)
[2019-07-20] MEDS: cefTRIAXone 2,000 MG in 0.9 % Sodium Chloride Mini Bag 100 ML IVPB SCH (08:20)
[2019-07-20] MEDS: Insulin LISPRO 300 UNITS/3 ML VIAL SQ SCH ×4 (08:21→20:12)
[2019-07-20] MEDS ORDERED: Aminoglycoside Consult 1 EACH MC ONE (09:45)
[2019-07-20] MEDS ORDERED: Fluticasone Propionate Nasal 50 MCG/SPRAY BOTTLE NS PRN (11:45)
[2019-07-20] MEDS ORDERED: NON-FORMULARY MEDICATION 1 EACH EACH (Ipratropium/Albuterol Sulfate [Combivent Respimat 20 IH PRN (11:45)
[2019-07-20] MEDS ORDERED: Ipratropium/Albuterol Neb 3 ML IH PRN (12:19)
[2019-07-20] MEDS ORDERED: 0.9 % Sodium Chloride 1,000 ML IVC SCH (13:30)
[2019-07-20] MEDS ORDERED: Lidocaine -MPF 2% 2 ML VIAL ONE (13:47)
[2019-07-20] MEDS ORDERED: Propofol 500 MG/50 ML INFUS..BTL ONE (13:47)
[2019-07-20] MEDS: Acetaminophen 325 MG TABLET PO PRN (20:11)
[2019-07-20] MEDS: Apixaban 5 MG TABLET PO SCH (20:11)
[2019-07-20] MEDS: Multivit/Ca/Min/Fe/FA 1 TAB TABLET PO SCH (20:12)
[2019-07-20] MEDS: Latanoprost 2.5 ML BOTTLE BOTH EYES SCH (20:12)
[2019-07-20] MEDS: Clindamycin 900 MG/50 ML 900 MG/50 ML IV.SOLN IVPB SCH (20:24)
[2019-07-20] MEDS: Budesonide/Formoterol 160/4.5 1 PUFF INH IH SCH (21:40)
[2019-07-21] MEDS: Insulin LISPRO 300 UNITS/3 ML VIAL SQ SCH ×4 (07:42→20:40)
[2019-07-21] MEDS: Apixaban 5 MG TABLET PO SCH ×2 (07:49→20:33)
[2019-07-21] MEDS: cefTRIAXone 2,000 MG in 0.9 % Sodium Chloride Mini Bag 100 ML IVPB SCH (07:50)
[2019-07-21] MEDS: Budesonide/Formoterol 160/4.5 1 PUFF INH IH SCH ×2 (07:56→19:58)
[2019-07-21] MEDS: *HR* OxyCODONE/APAP 5/325 TABLET PO PRN ×3 (07:56→20:34)
[2019-07-21 08:29] LABS: Basophils % 0.3 %; Eosinophils # 0.1 K/mcL (0.0-0.6); Eosinophils % 0.6 %; Hematocrit 37.4 % (37.5-50.1); Hemoglobin 12.5 g/dL (12.9-16.9); Immature Granulocytes % 1.1 % (0-4); Lymphocytes # 1.5 K/mcL (0.6-4.6); Lymphocytes % 11.8 %; Mean Corpuscular HGB Conc 33.4 g/dL (31.6-35.5); Mean Corpuscular Volume 89.9 fL (83.0-100.0); Mean Platelet Volume 9.8 fL (9.4-12.4); Monocytes # 0.9 K/mcL (0.0-1.3); Monocytes % 7.1 %; Neutrophils # 9.8 K/mcL (1.6-8.9); Platelet Count 299 K/mcL (140-400); Red Blood Count 4.16 M/mcL (4.19-5.50); Red Cell Distribution Width 14.2 % (11.5-14.5); Segmented Neutrophils % 79.1 %; White Blood Count 12.3 K/mcL (4.3-11.1)
[2019-07-21 09:06] LABS: BUN/Creatinine Ratio 27 (6-26); Blood Urea Nitrogen 12 mg/dL (8-23); Calcium 8.2 mg/dL (8.6-10.3); Carbon Dioxide 27 mEq/L (23-29); Chloride 99 mEq/L (98-107); Glucose 121 mg/dL (70-105); Osmolality,Calculated 283 (280-300); Potassium 3.6 mEq/L (3.5-5.1); Sodium 136 mEq/L (136-145); eGFR For African Americans > 60 (> 60); eGFR For Non-African Americans > 60 (> 60)
[2019-07-21] MEDS: Multivit/Ca/Min/Fe/FA 1 TAB TABLET PO SCH (20:34)
[2019-07-21] MEDS: Latanoprost 2.5 ML BOTTLE BOTH EYES SCH (20:40)
[2019-07-22] MEDS: *HR* OxyCODONE/APAP 5/325 TABLET PO PRN ×3 (06:48→21:06)
[2019-07-22] MEDS: Acetaminophen 325 MG TABLET PO PRN (07:36)
[2019-07-22] MEDS: Furosemide 20 MG TABLET PO SCH (07:37)
[2019-07-22] MEDS: Apixaban 5 MG TABLET PO SCH ×2 (07:37→21:06)
[2019-07-22] MEDS: cefTRIAXone 2,000 MG in 0.9 % Sodium Chloride Mini Bag 100 ML IVPB SCH (07:37)
[2019-07-22] MEDS: Insulin LISPRO 300 UNITS/3 ML VIAL SQ SCH ×4 (07:38→21:06)
[2019-07-22] MEDS: Budesonide/Formoterol 160/4.5 1 PUFF INH IH SCH ×2 (07:59→20:14)
[2019-07-22] MEDS ORDERED: traZODone 50 MG TABLET PO PRN (16:39)
[2019-07-22] MEDS: Multivit/Ca/Min/Fe/FA 1 TAB TABLET PO SCH (21:06)
[2019-07-22] MEDS: Latanoprost 2.5 ML BOTTLE BOTH EYES SCH (21:07)
[2019-07-23 07:13] VITALS: BP 130/64
[2019-07-23] MEDS: Insulin LISPRO 300 UNITS/3 ML VIAL SQ SCH (07:37)
[2019-07-23] MEDS: Budesonide/Formoterol 160/4.5 1 PUFF INH IH SCH (08:00)
[2019-07-23] MEDS: *HR* OxyCODONE/APAP 5/325 TABLET PO PRN (08:31)
[2019-07-23] MEDS: Apixaban 5 MG TABLET PO SCH (08:31)
[2019-07-23] MEDS: Furosemide 20 MG TABLET PO SCH (08:31)
[2019-07-23] MEDS: cefTRIAXone 2,000 MG in 0.9 % Sodium Chloride Mini Bag 100 ML IVPB SCH (08:32)
[2019-07-23 09:21] LABS: White Blood Count 15.3 K/mcL (4.3-11.1)
[2019-07-23 09:22] LABS: Basophils % 0.1 %; Eosinophils # 0.1 K/mcL (0.0-0.6); Eosinophils % 0.7 %; Hematocrit 37.1 % (37.5-50.1); Hemoglobin 12.6 g/dL (12.9-16.9); Immature Granulocytes % 0.8 % (0-4); Lymphocytes # 1.7 K/mcL (0.6-4.6); Lymphocytes % 10.9 %; Mean Corpuscular Hemoglobin 30.1 pg (28.0-33.3); Mean Corpuscular Volume 88.8 fL (83.0-100.0); Monocytes # 0.9 K/mcL (0.0-1.3); Monocytes % 6.1 %; Neutrophils # 12.5 K/mcL (1.6-8.9); Platelet Count 242 K/mcL (140-400); Red Blood Count 4.18 M/mcL (4.19-5.50); Red Cell Distribution Width 14.8 % (11.5-14.5); Segmented Neutrophils % 81.4 %
[2019-07-23 09:44] LABS: BUN/Creatinine Ratio 24 (6-26); Blood Urea Nitrogen 13 mg/dL (8-23); Calcium 8.3 mg/dL (8.6-10.3); Carbon Dioxide 26 mEq/L (23-29); Chloride 100 mEq/L (98-107); Glucose 183 mg/dL (70-105); Osmolality,Calculated 283 (280-300); Potassium 4.1 mEq/L (3.5-5.1); Sodium 134 mEq/L (136-145); eGFR For African Americans > 60 (> 60); eGFR For Non-African Americans > 60 (> 60)
[2019-07-23 10:27] LABS: C-Reactive Protein 68 mg/L (Less than 10)
== END 2019-07-23 10:50 | disposition home health service (06) | DRG 871 ==
LOC: EMEROOARM 07:30 → 2ANU 07:30 → SUATTDRO 12:46
PROVIDERS: ADMIT Internal Medicine; ATTEND Internal Medicine

== ENCOUNTER 2019-08-23 14:40 | Observation (INO) ==
[2019-08-23 16:35] LABS: Basophils # 0.1 K/mcL (0.0-0.2); Basophils % 0.7 %; Eosinophils # 0.1 K/mcL (0.0-0.6); Eosinophils % 0.7 %; Hemoglobin 12.3 g/dL (12.9-16.9); Immature Granulocytes % 0.4 % (0-4); Lymphocytes # 1.4 K/mcL (0.6-4.6); Lymphocytes % 18.2 %; Mean Corpuscular HGB Conc 32.4 g/dL (31.6-35.5); Mean Corpuscular Hemoglobin 29.4 pg (28.0-33.3); Mean Corpuscular Volume 90.9 fL (83.0-100.0); Monocytes # 0.8 K/mcL (0.0-1.3); Monocytes % 10.5 %; Neutrophils # 5.2 K/mcL (1.6-8.9); Platelet Count 236 K/mcL (140-400); Red Blood Count 4.18 M/mcL (4.19-5.50); Red Cell Distribution Width 14.6 % (11.5-14.5); Segmented Neutrophils % 69.5 %; White Blood Count 7.5 K/mcL (4.3-11.1)
[2019-08-23 16:55] LABS: BUN/Creatinine Ratio 21 (6-26); Blood Urea Nitrogen 14 mg/dL (8-23); Calcium 9.4 mg/dL (8.6-10.3); Carbon Dioxide 26 mEq/L (23-29); Chloride 103 mEq/L (98-107); Glucose 138 mg/dL (70-105); Osmolality,Calculated 291 (280-300); Sodium 139 mEq/L (136-145); eGFR For African Americans > 60 (> 60); eGFR For Non-African Americans > 60 (> 60)
[2019-08-23 16:58] LABS: Troponin I 0.05 ng/mL (< 0.04)
[2019-08-23 19:52] LABS: Albumin 3.9 g/dL (3.5-5.7); Albumin/Globulin Ratio 1.5 (1.1-2.2); Bilirubin,Direct 0.1 mg/dL (0.0-0.2); Bilirubin,Indirect 0.2 mg/dL (0.0-1.0); Bilirubin,Total 0.3 mg/dL (0.3-1.0); Globulin 2.6 g/dL (2.4-3.5); Total Protein 6.5 g/dL (6.4-8.9)
[2019-08-23 20:18] LABS: Bilirubin,Urine Negative (Negative); Blood,Urine Negative (Negative); Clarity,Urine Clear (Clear); Color,Urine Yellow (Yellow); Glucose,Urine (UA) Normal (Normal); Ketones,Urine Negative (Negative); Leukocyte Esterase,Urine Negative (Negative); Nitrite,Urine Negative (Negative); Protein,Urine Negative (Neg-Trace); Specific Gravity,Urine 1.021 (1.010-1.025); Urobilinogen,Urine Normal (Normal)
[2019-08-23] MEDS ORDERED: Aspirin 325 MG TABLET PO ONE (20:44)
[2019-08-24] MEDS ORDERED: Naloxone 0.4 MG/ML INJ IVP PRN (00:06)
[2019-08-24] MEDS ORDERED: *HR* OxyCODONE/APAP 5/325 TABLET PO PRN (00:20)
[2019-08-24] MEDS: *HR* OxyCODONE/APAP 5/325 TABLET PO PRN ×3 (04:22→21:07)
[2019-08-24] MEDS ORDERED: Isovue-370 500 ML BOTTLE IVP ONE (05:48)
[2019-08-24 07:13] LABS: Hematocrit 35.5 % (37.5-50.1); Hemoglobin 11.6 g/dL (12.9-16.9); Mean Corpuscular HGB Conc 32.7 g/dL (31.6-35.5); Mean Corpuscular Hemoglobin 29.4 pg (28.0-33.3); Mean Corpuscular Volume 90.1 fL (83.0-100.0); Mean Platelet Volume 11.1 fL (9.4-12.4); Platelet Count 202 K/mcL (140-400); Red Blood Count 3.94 M/mcL (4.19-5.50); Red Cell Distribution Width 14.5 % (11.5-14.5); White Blood Count 6.6 K/mcL (4.3-11.1)
[2019-08-24 07:34] LABS: BUN/Creatinine Ratio 16 (6-26); Blood Urea Nitrogen 9 mg/dL (8-23); Calcium 9.2 mg/dL (8.6-10.3); Carbon Dioxide 29 mEq/L (23-29); Chloride 103 mEq/L (98-107); Glucose 97 mg/dL (70-105); Osmolality,Calculated 291 (280-300); Potassium 3.8 mEq/L (3.5-5.1); Sodium 141 mEq/L (136-145); eGFR For African Americans > 60 (> 60); eGFR For Non-African Americans > 60 (> 60)
[2019-08-24 07:45] LABS: Troponin I 0.05 ng/mL (< 0.04)
[2019-08-24] MEDS ORDERED: CefTRIAXone 2,000 MG VIAL IVPB SCH (09:00)
[2019-08-24] MEDS: cefTRIAXone 2,000 MG in Water for inj. (sterile) 20 ML IVP SCH (09:19)
[2019-08-24] MEDS: Furosemide 20 MG TABLET PO SCH (09:20)
[2019-08-24] MEDS: Apixaban 5 MG TABLET PO SCH ×2 (09:20→19:58)
[2019-08-24] MEDS ORDERED: Nitroglycerin 0.4 MG TAB.SUBL SL PRN (15:59)
[2019-08-24] MEDS ORDERED: Ipratropium/Albuterol Neb 3 ML IH PRN (15:59)
[2019-08-24] MEDS ORDERED: Fluticasone Propionate Nasal 50 MCG/SPRAY BOTTLE NS PRN (15:59)
[2019-08-24] MEDS: Ondansetron 4 MG/2 ML VIAL IVP PRN ×2 (18:45→20:01)
[2019-08-24] MEDS: Budesonide/Formoterol 160/4.5 1 PUFF INH IH SCH (20:36)
[2019-08-24] MEDS ORDERED: Latanoprost 2.5 ML BOTTLE BOTH EYES SCH (21:00)
[2019-08-25] MEDS: Budesonide/Formoterol 160/4.5 1 PUFF INH IH SCH (07:12)
[2019-08-25] MEDS: Apixaban 5 MG TABLET PO SCH (10:04)
[2019-08-25] MEDS: Furosemide 20 MG TABLET PO SCH (10:04)
[2019-08-25] MEDS: cefTRIAXone 2,000 MG in Water for inj. (sterile) 20 ML IVP SCH (10:05)
[2019-08-25 12:19] VITALS: BP 106/60
[2019-08-26] MEDS ORDERED: Metoprolol XL (24 HR) Succ 50 MG TAB.ER.24H PO SCH (09:00)
== END 2019-08-25 12:57 | disposition home health service (06) ==
LOC: EMEROOARM 14:40 → CDU 14:40 → SUATTDRO 21:45 → CDU 23:16
PROVIDERS: ADMIT Internal Medicine; ATTEND Pharmacist

== ENCOUNTER 2019-09-11 19:10 | Inpatient (IN) ==
[2019-09-11] MEDS ORDERED: Azithromycin 250 MG TABLET PO ONE (19:28)
[2019-09-11] MEDS ORDERED: Ipratropium/Albuterol Neb 3 ML IH ONE (19:28)
[2019-09-11 19:57] LABS: Basophils % 0.4 %; Eosinophils % 0.1 %; Hematocrit 41.3 % (37.5-50.1); Hemoglobin 13.4 g/dL (12.9-16.9); Immature Granulocytes % 0.4 % (0-4); Lymphocytes # 0.5 K/mcL (0.6-4.6); Lymphocytes % 6.5 %; Mean Corpuscular HGB Conc 32.4 g/dL (31.6-35.5); Mean Corpuscular Hemoglobin 29.8 pg (28.0-33.3); Mean Platelet Volume 11.9 fL (9.4-12.4); Monocytes # 0.2 K/mcL (0.0-1.3); Monocytes % 2.7 %; Neutrophils # 7.3 K/mcL (1.6-8.9); Platelet Count 182 K/mcL (140-400); Red Blood Count 4.49 M/mcL (4.19-5.50); Red Cell Distribution Width 14.6 % (11.5-14.5); Segmented Neutrophils % 89.9 %; White Blood Count 8.2 K/mcL (4.3-11.1)
[2019-09-11 20:20] LABS: BUN/Creatinine Ratio 28 (6-26); Blood Urea Nitrogen 19 mg/dL (8-23); Calcium 9.8 mg/dL (8.6-10.3); Carbon Dioxide 24 mEq/L (23-29); Chloride 105 mEq/L (98-107); Glucose 148 mg/dL (70-105); Osmolality,Calculated 293 (280-300); Potassium 4.6 mEq/L (3.5-5.1); Sodium 139 mEq/L (136-145); eGFR For African Americans > 60 (> 60); eGFR For Non-African Americans > 60 (> 60)
[2019-09-11 20:23] LABS: Troponin I 0.06 ng/mL (< 0.04)
[2019-09-11] MEDS ORDERED: Furosemide 20 MG/2 ML VIAL IVP ONE (20:28)
[2019-09-11] MEDS ORDERED: Aspirin 81 MG TAB.CHEW PO STA (20:29)
[2019-09-11] MEDS ORDERED: Nitroglycerin 0.4 MG TAB.SUBL SL PRN (21:00)
[2019-09-11] MEDS ORDERED: *HR* OxyCODONE/APAP 5/325 TABLET PO PRN (21:00)
[2019-09-11] MEDS ORDERED: Gabapentin 100 MG CAPSULE PO PRN (21:00)
[2019-09-11] MEDS: Apixaban 5 MG TABLET PO SCH (23:46)
[2019-09-11] MEDS: predniSONE 20 MG TABLET PO SCH (23:48)
[2019-09-12] MEDS: Ipratropium/Albuterol Neb 3 ML IH SCH ×7 (00:55→23:21)
[2019-09-12 02:33] LABS: Basophils % 0.2 %; Hematocrit 39.1 % (37.5-50.1); Hemoglobin 12.6 g/dL (12.9-16.9); Immature Granulocytes % 0.3 % (0-4); Lymphocytes # 0.6 K/mcL (0.6-4.6); Lymphocytes % 5.6 %; Mean Corpuscular HGB Conc 32.2 g/dL (31.6-35.5); Mean Corpuscular Hemoglobin 29.8 pg (28.0-33.3); Mean Corpuscular Volume 92.4 fL (83.0-100.0); Monocytes # 0.4 K/mcL (0.0-1.3); Monocytes % 3.8 %; Neutrophils # 8.8 K/mcL (1.6-8.9); Platelet Count 170 K/mcL (140-400); Red Blood Count 4.23 M/mcL (4.19-5.50); Red Cell Distribution Width 14.5 % (11.5-14.5); Segmented Neutrophils % 90.1 %; White Blood Count 9.8 K/mcL (4.3-11.1)
[2019-09-12 02:56] LABS: Alanine Aminotransferase 12 Units/L (7-52); Albumin 4.1 g/dL (3.5-5.7); Albumin/Globulin Ratio 1.9 (1.1-2.2); Alkaline Phosphatase 70 Units/L (34-104); Aspartate Amino Transferase 14 Units/L (13-39); BUN/Creatinine Ratio 30 (6-26); Bilirubin,Total 0.7 mg/dL (0.3-1.0); Blood Urea Nitrogen 17 mg/dL (8-23); Calcium 9.6 mg/dL (8.6-10.3); Carbon Dioxide 23 mEq/L (23-29); Chloride 104 mEq/L (98-107); Globulin 2.2 g/dL (2.4-3.5); Glucose 126 mg/dL (70-105); Osmolality,Calculated 291 (280-300); Potassium 3.8 mEq/L (3.5-5.1); Sodium 139 mEq/L (136-145); Total Protein 6.3 g/dL (6.4-8.9); eGFR For African Americans > 60 (> 60); eGFR For Non-African Americans > 60 (> 60)
[2019-09-12 03:26] LABS: Adenovirus Not Detected (Not Detect); Bordetella Pertussis Not Detected (Not Detect); Chlamydophila pneumoniae Not Detected (Not Detect); Coronavirus 229E Not Detected (Not Detect); Coronavirus HKU1 Not Detected (Not Detect); Coronavirus NL63 Not Detected (Not Detect); Coronavirus OC43 Not Detected (Not Detect); Human Metapneumovirus Not Detected (Not Detect); Human Rhinovirus/Enterovirus Not Detected (Not Detect); Influenza A Subtype 2009 H1 Not Detected (Not Detect); Influenza B Not Detected (Not Detect); Mycoplasma pneumoniae Not Detected (Not Detect); Parainfluenza Virus 1 Not Detected (Not Detect); Parainfluenza Virus 2 Not Detected (Not Detect); Parainfluenza Virus 3 Not Detected (Not Detect); Parainfluenza Virus 4 Not Detected (Not Detect); Respiratory Syncytial Virus Not Detected (Not Detect)
[2019-09-12] MEDS ORDERED: *HR* OxyCODONE/APAP 10/325 TABLET PO ONE (03:47)
[2019-09-12] MEDS: Latanoprost 2.5 ML BOTTLE BOTH EYES SCH ×2 (04:18→22:37)
[2019-09-12] MEDS ORDERED: Furosemide 20 MG/2 ML VIAL IVP SCH (09:00)
[2019-09-12] MEDS: predniSONE 20 MG TABLET PO SCH (09:16)
[2019-09-12] MEDS: Apixaban 5 MG TABLET PO SCH ×2 (09:16→22:36)
[2019-09-12] MEDS: Furosemide 20 MG/2 ML VIAL IVP SCH ×2 (09:17→22:37)
[2019-09-12] MEDS: *HR* OxyCODONE/APAP 10/325 TABLET PO PRN ×2 (11:12→17:00)
[2019-09-12] MEDS ORDERED: Fluticasone Propionate Nasal 50 MCG/SPRAY BOTTLE NS PRN (14:49)
[2019-09-12] MEDS: Amoxicillin 250 MG CHEWABLE TABLET PO SCH ×2 (17:00→22:37)
[2019-09-12] MEDS: Budesonide/Formoterol 160/4.5 1 PUFF INH IH SCH (19:26)
[2019-09-12] MEDS ORDERED: Azithromycin 250 MG TABLET PO SCH (21:00)
[2019-09-13] MEDS: *HR* OxyCODONE/APAP 10/325 TABLET PO PRN ×3 (03:17→19:57)
[2019-09-13] MEDS: Ipratropium/Albuterol Neb 3 ML IH SCH ×6 (03:25→23:13)
[2019-09-13] MEDS ORDERED: DilTIAZem 50 MG in 0.9 % Sodium Chloride 40 ML IVC SCH (04:45)
[2019-09-13 05:05] LABS: BUN/Creatinine Ratio 29 (6-26); Blood Urea Nitrogen 22 mg/dL (8-23); Calcium 9.8 mg/dL (8.6-10.3); Carbon Dioxide 26 mEq/L (23-29); Chloride 103 mEq/L (98-107); Glucose 122 mg/dL (70-105); Osmolality,Calculated 301 (280-300); Potassium 3.4 mEq/L (3.5-5.1); Sodium 143 mEq/L (136-145); eGFR For African Americans > 60 (> 60); eGFR For Non-African Americans > 60 (> 60)
[2019-09-13] MEDS: Budesonide/Formoterol 160/4.5 1 PUFF INH IH SCH ×2 (07:15→19:45)
[2019-09-13] MEDS: Furosemide 20 MG/2 ML VIAL IVP SCH ×2 (08:09→16:21)
[2019-09-13] MEDS: Amoxicillin 250 MG CHEWABLE TABLET PO SCH ×3 (09:32→19:56)
[2019-09-13] MEDS: Azithromycin 250 MG TABLET PO SCH (09:32)
[2019-09-13] MEDS: predniSONE 20 MG TABLET PO SCH (09:33)
[2019-09-13] MEDS: Apixaban 5 MG TABLET PO SCH ×2 (09:33→19:57)
[2019-09-13] MEDS: DilTIAZem 50 MG in 0.9 % Sodium Chloride 40 ML IVC SCH (12:03)
[2019-09-13] MEDS: Latanoprost 2.5 ML BOTTLE BOTH EYES SCH (19:57)
[2019-09-14] MEDS: DilTIAZem 50 MG in 0.9 % Sodium Chloride 40 ML IVC SCH ×2 (00:02→17:43)
[2019-09-14 02:58] LABS: BUN/Creatinine Ratio 37 (6-26); Blood Urea Nitrogen 25 mg/dL (8-23); Calcium 9.4 mg/dL (8.6-10.3); Carbon Dioxide 23 mEq/L (23-29); Chloride 103 mEq/L (98-107); Glucose 115 mg/dL (70-105); Osmolality,Calculated 289 (280-300); Potassium 4.2 mEq/L (3.5-5.1); Sodium 137 mEq/L (136-145); eGFR For African Americans > 60 (> 60); eGFR For Non-African Americans > 60 (> 60)
[2019-09-14] MEDS: Ipratropium/Albuterol Neb 3 ML IH SCH ×6 (03:20→23:07)
[2019-09-14] MEDS: Budesonide/Formoterol 160/4.5 1 PUFF INH IH SCH ×2 (07:13→19:22)
[2019-09-14] MEDS: Amoxicillin 250 MG CHEWABLE TABLET PO SCH ×3 (07:50→20:12)
[2019-09-14] MEDS: Furosemide 20 MG/2 ML VIAL IVP SCH ×2 (07:50→16:03)
[2019-09-14] MEDS: Apixaban 5 MG TABLET PO SCH ×2 (07:50→20:12)
[2019-09-14] MEDS: Azithromycin 250 MG TABLET PO SCH (07:50)
[2019-09-14] MEDS: predniSONE 20 MG TABLET PO SCH (07:50)
[2019-09-14] MEDS: *HR* OxyCODONE/APAP 10/325 TABLET PO PRN (16:05)
[2019-09-14] MEDS: Latanoprost 2.5 ML BOTTLE BOTH EYES SCH (20:13)
[2019-09-14] MEDS ORDERED: Methocarbamol 500 MG TABLET PO PRN (20:39)
[2019-09-15] MEDS: *HR* OxyCODONE/APAP 10/325 TABLET PO PRN ×2 (00:08→19:12)
[2019-09-15] MEDS: DilTIAZem 50 MG in 0.9 % Sodium Chloride 40 ML IVC SCH ×2 (01:30→10:33)
[2019-09-15] MEDS: Ipratropium/Albuterol Neb 3 ML IH SCH ×6 (03:59→23:52)
[2019-09-15 05:17] LABS: BUN/Creatinine Ratio 34 (6-26); Blood Urea Nitrogen 23 mg/dL (8-23); Calcium 9.1 mg/dL (8.6-10.3); Carbon Dioxide 27 mEq/L (23-29); Chloride 101 mEq/L (98-107); Glucose 112 mg/dL (70-105); Osmolality,Calculated 294 (280-300); Potassium 3.7 mEq/L (3.5-5.1); Sodium 140 mEq/L (136-145); eGFR For African Americans > 60 (> 60); eGFR For Non-African Americans > 60 (> 60)
[2019-09-15] MEDS: Apixaban 5 MG TABLET PO SCH ×2 (07:20→20:36)
[2019-09-15] MEDS: Furosemide 20 MG/2 ML VIAL IVP SCH ×2 (07:21→17:29)
[2019-09-15] MEDS: predniSONE 20 MG TABLET PO SCH (07:21)
[2019-09-15] MEDS: Amoxicillin 250 MG CHEWABLE TABLET PO SCH ×3 (07:21→20:37)
[2019-09-15] MEDS: Budesonide/Formoterol 160/4.5 1 PUFF INH IH SCH ×2 (07:27→19:52)
[2019-09-15] MEDS: Latanoprost 2.5 ML BOTTLE BOTH EYES SCH (20:39)
[2019-09-16] MEDS: *HR* OxyCODONE/APAP 10/325 TABLET PO PRN (03:10)
[2019-09-16] MEDS: Ipratropium/Albuterol Neb 3 ML IH SCH ×2 (03:48→07:12)
[2019-09-16] MEDS: Budesonide/Formoterol 160/4.5 1 PUFF INH IH SCH (07:13)
[2019-09-16 07:19] VITALS: BP 136/51
[2019-09-16] MEDS: Furosemide 20 MG/2 ML VIAL IVP SCH (08:55)
[2019-09-16] MEDS: Apixaban 5 MG TABLET PO SCH (10:16)
[2019-09-16] MEDS: Amoxicillin 250 MG CHEWABLE TABLET PO SCH (10:16)
== END 2019-09-16 10:38 | disposition home or self-care (01) | DRG 190 ==
LOC: 2ANU 19:10 → EMEROOARM 19:10 → SUATTDRO 21:10 → 2ANU 22:30 → SUATTDRO 09-14 14:05
PROVIDERS: ADMIT Internal Medicine; ATTEND Internal Medicine

== ENCOUNTER 2020-10-05 15:53 | Observation (INO) ==
[2020-10-05] MEDS ORDERED: Aspirin 81 MG TAB.CHEW PO STA (16:30)
[2020-10-05 17:49] LABS: Basophils % 0.2 %; Eosinophils % 0.1 %; Hematocrit 40.3 % (37.5-50.1); Hemoglobin 13.3 g/dL (12.9-16.9); Immature Granulocytes % 0.4 % (0-4); Lymphocytes % 14.6 %; Mean Corpuscular Hemoglobin 31.1 pg (28.0-33.3); Mean Corpuscular Volume 94.2 fL (83.0-100.0); Mean Platelet Volume 12.3 fL (9.4-12.4); Monocytes # 1.1 K/mcL (0.0-1.3); Monocytes % 7.7 %; Neutrophils # 10.5 K/mcL (1.6-8.9); Platelet Count 156 K/mcL (140-400); Red Blood Count 4.28 M/mcL (4.19-5.50); Red Cell Distribution Width 14.5 % (11.5-14.5); White Blood Count 13.6 K/mcL (4.3-11.1)
[2020-10-05] MEDS ORDERED: Nitroglycerin 0.4 MG TAB.SUBL SL PRN (17:53)
[2020-10-05] MEDS ORDERED: Furosemide 40 MG/4 ML VIAL IVP ONE (17:53)
[2020-10-05 18:19] LABS: BUN/Creatinine Ratio 36 (6-26); Blood Urea Nitrogen 30 mg/dL (8-23); Calcium 9.5 mg/dL (8.6-10.3); Carbon Dioxide 25 mEq/L (23-29); Chloride 106 mEq/L (98-107); Glucose 114 mg/dL (70-105); Osmolality,Calculated 297 (280-300); Potassium 3.8 mEq/L (3.5-5.1); Sodium 140 mEq/L (136-145); Troponin I 0.09 ng/mL (< 0.04); eGFR For African Americans > 60 (> 60); eGFR For Non-African Americans > 60 (> 60)
[2020-10-05] MEDS ORDERED: Ondansetron 4 MG/2 ML VIAL IVP PRN (19:43)
[2020-10-05] MEDS ORDERED: Naloxone 0.4 MG/ML INJ IVP PRN (19:43)
[2020-10-05] MEDS ORDERED: Perflutren Lipid Microsphere 1.3 ML in 0.9 % Sodium Chloride 8.7 ML IVP PRN (21:52)
[2020-10-05] MEDS ORDERED: Ipratropium/Albuterol Neb 3 ML IH PRN (21:55)
[2020-10-05] MEDS ORDERED: D5% in Water 1,000 ML IVC PRN (22:09)
[2020-10-05] MEDS ORDERED: Dextrose Gel 15 GM/37.5 ML TUBE PO PRN ×2 (22:09)
[2020-10-05] MEDS ORDERED: *HR* Dextrose 50 % in Water (Vial) 50 ML VIAL IVP PRN (22:09)
[2020-10-05] MEDS ORDERED: Insulin LISPRO 300 UNITS/3 ML VIAL SUBQ SCH (22:15)
[2020-10-05] MEDS: predniSONE 20 MG TABLET PO SCH (22:48)
[2020-10-05] MEDS: Azithromycin 500 MG in 0.9 % Sodium Chloride 250 ML IVPB SCH (22:48)
[2020-10-06] MEDS ORDERED: Melatonin 3 MG TABLET PO PRN (00:51)
[2020-10-06 05:09] LABS: Hematocrit 39.7 % (37.5-50.1); Hemoglobin 12.9 g/dL (12.9-16.9); Mean Corpuscular HGB Conc 32.5 g/dL (31.6-35.5); Mean Corpuscular Hemoglobin 30.4 pg (28.0-33.3); Mean Corpuscular Volume 93.6 fL (83.0-100.0); Mean Platelet Volume 11.8 fL (9.4-12.4); Platelet Count 147 K/mcL (140-400); Red Blood Count 4.24 M/mcL (4.19-5.50); Red Cell Distribution Width 14.6 % (11.5-14.5); White Blood Count 10.8 K/mcL (4.3-11.1)
[2020-10-06 05:30] LABS: BUN/Creatinine Ratio 38 (6-26); Blood Urea Nitrogen 27 mg/dL (8-23); Calcium 8.7 mg/dL (8.6-10.3); Carbon Dioxide 26 mEq/L (23-29); Chloride 105 mEq/L (98-107); Glucose 153 mg/dL (70-105); Osmolality,Calculated 298 (280-300); Potassium 3.9 mEq/L (3.5-5.1); Sodium 140 mEq/L (136-145); eGFR For African Americans > 60 (> 60); eGFR For Non-African Americans > 60 (> 60)
[2020-10-06 05:33] LABS: Troponin I 0.07 ng/mL (< 0.04)
[2020-10-06] MEDS: Furosemide 40 MG/4 ML VIAL IVP SCH ×2 (08:38→20:56)
[2020-10-06] MEDS: predniSONE 20 MG TABLET PO SCH (08:38)
[2020-10-06] MEDS ORDERED: Furosemide 40 MG/4 ML VIAL IVP SCH (09:00)
[2020-10-06] MEDS ORDERED: Ipratropium/Albuterol Neb 3 ML IH PRN (09:23)
[2020-10-06] MEDS ORDERED: Gabapentin 300 MG CAPSULE PO PRN (09:23)
[2020-10-06] MEDS: Budesonide/Formoterol 160/4.5 1 PUFF INH IH SCH ×2 (10:08→20:09)
[2020-10-06] MEDS: Ipratropium/Albuterol Neb 3 ML IH SCH ×4 (13:12→23:06)
[2020-10-06] MEDS: Apixaban 5 MG TABLET PO SCH (20:56)
[2020-10-06] MEDS ORDERED: Latanoprost 2.5 ML BOTTLE BOTH EYES SCH (21:00)
[2020-10-06] MEDS ORDERED: Budesonide/Formoterol 160/4.5 1 PUFF INH IH SCH (22:00)
[2020-10-06] MEDS: Azithromycin 500 MG in 0.9 % Sodium Chloride 250 ML IVPB SCH (22:59)
[2020-10-07 03:15] LABS: Basophils % 0.1 %; Hematocrit 38.1 % (37.5-50.1); Hemoglobin 12.7 g/dL (12.9-16.9); Immature Granulocytes % 0.4 % (0-4); Lymphocytes # 1.3 K/mcL (0.6-4.6); Lymphocytes % 10.2 %; Mean Corpuscular HGB Conc 33.3 g/dL (31.6-35.5); Mean Corpuscular Hemoglobin 31.4 pg (28.0-33.3); Mean Corpuscular Volume 94.1 fL (83.0-100.0); Mean Platelet Volume 12.2 fL (9.4-12.4); Monocytes # 1.1 K/mcL (0.0-1.3); Monocytes % 8.4 %; Neutrophils # 10.5 K/mcL (1.6-8.9); Platelet Count 155 K/mcL (140-400); Red Blood Count 4.05 M/mcL (4.19-5.50); Red Cell Distribution Width 14.2 % (11.5-14.5); Segmented Neutrophils % 80.9 %
[2020-10-07 03:32] LABS: BUN/Creatinine Ratio 36 (6-26); Blood Urea Nitrogen 27 mg/dL (8-23); Calcium 8.8 mg/dL (8.6-10.3); Carbon Dioxide 27 mEq/L (23-29); Chloride 103 mEq/L (98-107); Glucose 117 mg/dL (70-105); Magnesium 2.2 mg/dL (1.6-2.6); Osmolality,Calculated 298 (280-300); Potassium 3.4 mEq/L (3.5-5.1); Sodium 141 mEq/L (136-145); eGFR For African Americans > 60 (> 60); eGFR For Non-African Americans > 60 (> 60)
[2020-10-07] MEDS: Ipratropium/Albuterol Neb 3 ML IH SCH ×3 (04:08→11:08)
[2020-10-07] MEDS: Budesonide/Formoterol 160/4.5 1 PUFF INH IH SCH (07:31)
[2020-10-07] MEDS: Apixaban 5 MG TABLET PO SCH (07:37)
[2020-10-07] MEDS: Furosemide 40 MG/4 ML VIAL IVP SCH (07:38)
[2020-10-07] MEDS: predniSONE 20 MG TABLET PO SCH (07:38)
[2020-10-07] MEDS ORDERED: lisinopriL 5 MG TABLET PO SCH (09:00)
[2020-10-07 10:49] VITALS: BP 147/65
== END 2020-10-07 12:33 | disposition home or self-care (01) ==
LOC: EMEROOARM 15:53 → 2ANU 15:53
PROVIDERS: ADMIT Internal Medicine; ATTEND Internal Medicine

== ENCOUNTER 2021-10-09 06:21 | Inpatient (IN) ==
[2021-10-09] MEDS ORDERED: NiCARdipine 2.5 MG/10 ML Syringe IVPB ONE (06:31)
[2021-10-09] MEDS ORDERED: *HR* Vasopressin 20 UNIT/ML VIAL ONE (06:31)
[2021-10-09] MEDS ORDERED: *HR* Norepinephrine 4 MG/4 ML VIAL IVC ONE (06:44)
[2021-10-09] MEDS ORDERED: Vancomycin 1,000 MG VIAL ONE (06:46)
[2021-10-09] MEDS ORDERED: Water for inj. (sterile) 10 ML ONE (06:46)
[2021-10-09] MEDS ORDERED: 0.9 % Sodium Chloride 1,000 ML ONE ×2 (06:47→08:40)
[2021-10-09] MEDS ORDERED: 0.9 % Sodium Chloride 250 ML ONE (06:52)
[2021-10-09] MEDS ORDERED: D5% in Water 100 ML ONE (06:54)
[2021-10-09] MEDS ORDERED: Protamine Sulfate 50 MG/5 ML VIAL IVP ONE (07:01)
[2021-10-09] MEDS ORDERED: *HR* Heparin 10,000 UNIT/10 ML VIAL ONE ×2 (07:01→09:11)
[2021-10-09] MEDS ORDERED: Heparin 1,000 UNITS/500 mL 1,000 ML ONE (07:02)
[2021-10-09] MEDS ORDERED: ISOVUE-370 200 ML INFUS..BTL ONE (07:02)
[2021-10-09] MEDS ORDERED: 0.9 % Sodium Chloride 2,000 ML ONE (07:02)
[2021-10-09] MEDS ORDERED: *HR* Midazolam HCl 2 MG/2 ML VIAL ONE (07:13)
[2021-10-09] MEDS ORDERED: *HR* FentaNYL (PF) 100 MCG/2 ML VIAL ONE (07:13)
[2021-10-09] MEDS ORDERED: Heparin 1,000 UNITS/500 mL 500 ML ONE ×3 (07:21→09:14)
[2021-10-09] MEDS ORDERED: Sugammadex Sodium 200 MG/2 ML VIAL IV ONE (07:25)
[2021-10-09] MEDS ORDERED: *HR* Labetalol 100 MG/20 ML MDV ONE (09:43)
[2021-10-09] MEDS ORDERED: *HR* OxyCODONE Immed Rel 5 MG TABLET PO PRN (10:00)
[2021-10-09] MEDS ORDERED: Acetaminophen 325 MG TABLET PO PRN (10:00)
[2021-10-09] MEDS ORDERED: Ipratropium/Albuterol Neb 3 ML ONE (10:32)
[2021-10-09] MEDS ORDERED: niCARdipine 20 MG/200 ML MLS IVC ONE (10:37)
[2021-10-09] MEDS: niCARdipine 20 MG/200 ML MLS IVC SCH ×2 (10:45→12:21)
[2021-10-09] MEDS ORDERED: Ipratropium/Albuterol Neb 3 ML IH ONE (11:02)
[2021-10-09] MEDS ORDERED: lisinopriL 5 MG TABLET PO SCH (11:30)
[2021-10-09] MEDS: Norepinephrine 4 MG/254 ML IV.SOLN IVC SCH ×3 (11:38→20:05)
[2021-10-09] MEDS ORDERED: *HR* Etomidate 20 MG/10 ML AMPUL IVP ONE (12:27)
[2021-10-09] MEDS ORDERED: Lidocaine -MPF 2% 5 ML VIAL SQ ONE (12:27)
[2021-10-09] MEDS ORDERED: Ondansetron 4 MG/2 ML VIAL IVP ONE (12:27)
[2021-10-09] MEDS ORDERED: *HR* Phenylephrine 10 MG/ML VIAL IVC ONE (12:27)
[2021-10-09] MEDS ORDERED: *HR* Rocuronium Bromide 50 MG/5 ML VIAL IVP ONE (12:27)
[2021-10-09] MEDS ORDERED: Perflutren Lipid Microsphere 1.3 ML in 0.9 % Sodium Chloride 8.7 ML IVP PRN (12:59)
[2021-10-09] MEDS ORDERED: Ipratropium/Albuterol Neb 3 ML IH PRN (16:32)
[2021-10-09] MEDS: ceFAZolin 2,000 MG in 0.9 % Sodium Chloride 100 ML IVPB SCH (18:34)
[2021-10-09] MEDS: Amoxicillin 500 MG CAPSULE PO SCH (20:05)
[2021-10-09] MEDS: Budesonide/Formoterol 160/4.5 1 PUFF INH IH SCH (21:40)
[2021-10-10] MEDS: ceFAZolin 2,000 MG in 0.9 % Sodium Chloride 100 ML IVPB SCH (01:05)
[2021-10-10 05:00] VITALS: O2SAT 95
[2021-10-10 06:25] LABS: Hematocrit 43.1 % (37.5-50.1)
[2021-10-10 06:45] LABS: BUN/Creatinine Ratio 27 (6-26); Blood Urea Nitrogen 18 mg/dL (8-23); eGFR For African Americans > 60 (> 60); eGFR For Non-African Americans > 60 (> 60)
[2021-10-10] MEDS: Budesonide/Formoterol 160/4.5 1 PUFF INH IH SCH (07:30)
[2021-10-10] MEDS ORDERED: Aspirin 81 MG TAB.CHEW PO SCH (09:00)
[2021-10-10] MEDS ORDERED: Apixaban 5 MG TABLET PO SCH (09:00)
[2021-10-10] MEDS ORDERED: Furosemide 20 MG TABLET PO SCH (09:00)
[2021-10-10] MEDS ORDERED: lisinopriL 5 MG TABLET PO SCH (09:00)
[2021-10-10] MEDS: Amoxicillin 500 MG CAPSULE PO SCH (09:18)
[2021-10-10 11:30] VITALS: BP 126/77
[2021-10-10 12:08] VITALS: PULSE 89
[2021-10-10 12:31] VITALS: TEMP 97.5
== END 2021-10-10 12:28 | disposition home or self-care (01) | DRG 267 ==
LOC: INVDIALAB 06:21 → ICNU 10:03
PROVIDERS: ADMIT Thoracic Surgery (Cardiothoracic Vascular Surgery); ATTEND Thoracic Surgery (Cardiothoracic Vascular Surgery)